=== PATIENT | female | born 1980 | race Caucasian/White ===

== ENCOUNTER → 2016-08-11 | Outpatient (CLI) | payer OTHER | END | disposition home or self-care (01) | LOC: LABWHC1 09:55 | PROVIDERS: ATTEND Family Medicine | DX: R50.9 Fever, unspecified (principal); R52 Pain, unspecified | CPT/HCPCS: 87502 ==

== ENCOUNTER 2016-08-15 15:07 | Emergency (ER) | payer OTHER ==
[2016-08-15 15:26] VITALS: TEMP 98.3
[2016-08-15] MEDS ORDERED: MORPHINE SULFATE 4 MG/ML SYRINGE IV STA (15:30)
[2016-08-15] MEDS ORDERED: SODIUM CHLORIDE 0.9% 1,000 ML IV STA ×2 (15:30)
[2016-08-15] MEDS ORDERED: RX INFO: IV CONTRAST WAS GIVEN 1 EACH MISC MISCELLANE PRN (15:30)
[2016-08-15] MEDS ORDERED: SODIUM CHLORIDE 0.9% 500 ML IV STA (15:30)
--- NOTE | 2016-08-15 15:33 | ED ---
General Adult HPI - General Chief complaint: Abdominal Pain Stated complaint: dr. tenorio- RLQ abd pain Time Seen by Provider: 08/15/16 15:30 Source: patient, RN notes reviewed, old records reviewed Mode of arrival: wheelchair Limitations: no limitations - History of Present Illness Initial comments: This is a 35-year-old female here for evaluation of abdominal pain. Patient has history of chronic pain, occasional bowel pain. No fevers, no nausea no vomiting or diarrhea. Patient has history of asthma high blood pressure cholesterol. States she has no change in diarrhea or bowel movements patient sent in from clinic to rule out appendicitis - Related Data Home Medications Medication Instructions Recorded Confirmed Acetaminophen Tab [Tylenol Tab] 1,000 mg PO Q6HR PRN 08/15/16 08/15/16 Atorvastatin Calcium [Lipitor] 10 mg PO HS 08/15/16 08/15/16 EPINEPHrine (Auto Inject) [Epipen] 0.3 mg IM ONCE PRN 08/15/16 08/15/16 Ergocalciferol [Vitamin D2] 50,000 unit PO WE 08/15/16 08/15/16 Ranitidine HCl [Zantac] 150 mg PO BID 08/15/16 08/15/16 Allergies Allergy/AdvReac Type Severity Reaction Status Date / Time shellfish derived Allergy Severe tongue Verified 08/15/16 15:26 swells and hives azithromycin [From Zithromax] Allergy Rash/Hives Verified 08/15/16 15:26 ceftriaxone sodium Allergy Rash/Hives Verified 08/15/16 15:26 [From Rocephin] ciprofloxacin [From Cipro] Allergy Rash/Hives Verified 08/15/16 15:26 ciprofloxacin HCl Allergy Rash/Hives Verified 08/15/16 15:26 [From Cipro] citalopram hydrobromide Allergy Rash/Hives Verified 08/15/16 15:26 [From Celexa] escitalopram oxalate Allergy Rash/Hives Verified 08/15/16 15:26 [From Lexapro] Fish Containing Products Allergy Rash/Hives, Verified 08/15/16 15:26 [Fish] tongue swells fosphenytoin sodium Allergy TONGUE Verified 08/15/16 15:26 [From Cerebyx] SWELLING hydrocodone bitartrate Allergy Rash/Hives Verified 08/15/16 15:26 [From Lortab] hydromorphone HCl Allergy Rash/Hives Verified 08/15/16 15:26 [From Dilaudid] lamotrigine [From Lamictal] Allergy Rash/Hives Verified 08/15/16 15:26 levetiracetam [From Keppra] Allergy Rash/Hives Verified 08/15/16 15:26 morphine Allergy Rash/Hives,THROAT Verified 08/15/16 15:26 SWELLING sulfamethoxazole Allergy Rash/Hives Verified 08/15/16 15:26 [From Bactrim] trimethobenzamide HCl Allergy Rash/Hives Verified 08/15/16 15:26 [From Tigan] trimethoprim [From Bactrim] Allergy Rash/Hives Verified 08/15/16 15:26 venom-honey bee Allergy Swelling Verified 08/15/16 15:26 [bee venom (honey bee)] OF THROAT Review of Systems ROS Statement: Those systems with pertinent positive or pertinent negative responses have been documented in the HPI. ROS Other: All systems not noted in ROS Statement are negative. Past Medical History Past Medical History: Asthma, CVA/TIA, Fibromyalgia, GERD/Reflux, Hearing Disorder / Deafness, Hyperlipidemia, Myocardial Infarction ([place]), Osteoarthritis (OA), Seizure Disorder Additional Past Medical History / Comment(s): HX SEIZURES, NONE SINCE 2009. Vertigo; MIGRAINES; Peripheral Neuropathy. TACHYCARDIA; TIA X2; MINOR [place] X4. HIATAL HERNIA. Last Myocardial Infarction Date:: 2011 History of Any Multi-Drug Resistant Organisms: None Reported Past Surgical History: Cholecystectomy, Hysterectomy, Tubal Ligation, Uterine Ablation Additional Past Surgical History / Comment(s): EGD, COLONOSCOPY 12/24/14. Past Anesthesia/Blood Transfusion Reactions: Previous Problems w/ Anesthesia, Family History of Problems w/ Anesthesia Additional Past Anesthesia/Blood Transfusion Reaction / Comment(s): Woke Up During ORAL Surgery in 2000; FATHER AND SIBLINGS ALSO WOKE DURING SURG. Past Psychological History: Bipolar, PTSD Smoking Status: Former smoker Past Alcohol Use History: Occasional Additional Past Alcohol Use History / Comment(s): QUIT 2013, SMOKED FOR 10 YRS, 3PPD/DOWN TO 1 PACK PER WEEK Past Drug Use History: None Reported - Past Family History Sister(s) Family Medical History: Cancer Mother Family Medical History: Cancer Mother Sister(s) Family Medical History: Cancer General Exam Limitations: no limitations General appearance: alert, in no apparent distress, obese Head exam: Present: atraumatic, normocephalic, normal inspection Eye exam: Present: normal appearance, PERRL, EOMI. Absent: scleral icterus, conjunctival injection, periorbital swelling ENT exam: Present: normal exam, mucous membranes moist Neck exam: Present: normal inspection. Absent: tenderness, meningismus, lymphadenopathy Respiratory exam: Present: normal lung sounds bilaterally. Absent: respiratory distress, wheezes, rales, rhonchi, stridor Cardiovascular Exam: Present: normal rhythm, tachycardia, normal heart sounds. Absent: systolic murmur, diastolic murmur, rubs, gallop, clicks GI/Abdominal exam: Present: soft, normal bowel sounds. Absent: distended, tenderness, guarding, rebound, rigid Extremities exam: Present: normal inspection, full ROM, normal capillary refill. Absent: tenderness, pedal edema, joint swelling, calf tenderness Back exam: Present: normal inspection Neurological exam: Present: alert, oriented X3, CN II-XII intact Psychiatric exam: Present: normal affect, normal mood Skin exam: Present: warm, dry, intact, normal color. Absent: rash Course Vital Signs 08/15/16 15:24 Temperature 98.3 F Pulse Rate 115 H Respiratory 20 Rate Blood Pressure 130/75 O2 Sat by Pulse 97 Oximetry - Reevaluation(s) Reevaluation #1: 08/15/16 18:56 Patient's pain is controlled EKG Findings - EKG Comments: EKG Findings:: EKG shows normal sinus rhythm rate of 83, MN 132, QRS 84, QTC 441 Medical Decision Making - Medical Decision Making 35 female here for evaluation of nonspecific abdominal pain. CT and lab work is normal. Urine is normal patient will be discharged home - Lab Data Result diagrams: 08/15/16 16:00 08/15/16 16:00 Lab Results 08/15/16 08/15/16 08/15/16 Range/Units 15:55 16:00 16:00 WBC 11.8 H (3.8-10.6) k/uL RBC 5.08 (3.80-5.40) m/uL Hgb 15.0 (11.4-16.0) gm/dL Hct 44.3 (34.0-46.0) % MCV 87.2 (80.0-100.0) fL MCH 29.6 (25.0-35.0) pg MCHC 33.9 (31.0-37.0) g/dL RDW 13.2 (11.5-15.5) % Plt Count 198 (150-450) k/uL Neutrophils % 78 % Lymphocytes % 16 % Monocytes % 4 % Eosinophils % 1 % Basophils % 1 % Neutrophils # 9.2 H (1.3-7.7) k/uL Lymphocytes # 1.9 (1.0-4.8) k/uL Monocytes # 0.5 (0-1.0) k/uL Eosinophils # 0.1 (0-0.7) k/uL Basophils # 0.1 (0-0.2) k/uL Sodium 139 (137-145) mmol/L Potassium 4.3 (3.5-5.1) mmol/L Chloride 104 (98-107) mmol/L Carbon Dioxide 21 L (22-30) mmol/L Anion Gap 14 mmol/L BUN 11 (7-17) mg/dL Creatinine 0.69 (0.52-1.04) mg/dL Est GFR (MDRD) Af Amer >60 (>60 ml/min/1.73 sqM) Est GFR (MDRD) Non-Af >60 (>60 ml/min/1.73 sqM) Glucose 85 (74-99) mg/dL Plasma Lactic Acid Cyril (0.7-2.0) mmol/L Calcium 9.2 (8.4-10.2) mg/dL Total Bilirubin 1.1 (0.2-1.3) mg/dL AST 31 (14-36) U/L ALT 20 (9-52) U/L Alkaline Phosphatase 73 (38-126) U/L Total Protein 7.4 (6.3-8.2) g/dL Albumin 4.3 (3.5-5.0) g/dL Amylase 58 (30-110) U/L Lipase 72 (23-300) U/L Urine Color Yellow Urine Appearance Cloudy H (Clear) Urine pH 5.5 (5.0-8.0) Ur Specific [place] 1.020 (1.001-1.035) Urine Protein Trace H (Negative) Urine Glucose (UA) Negative (Negative) Urine Ketones Trace H (Negative) Urine Blood Negative (Negative) Urine Nitrite Negative (Negative) Urine Bilirubin Negative (Negative) Urine Urobilinogen <2.0 (<2.0) mg/dL Ur Leukocyte Esterase Negative (Negative) Ur Squamous Epith Cells 6 H (0-4) /hpf Urine Mucus Rare H (None) /hpf 08/15/16 Range/Units 16:00 WBC (3.8-10.6) k/uL RBC (3.80-5.40) m/uL Hgb (11.4-16.0) gm/dL Hct (34.0-46.0) % MCV (80.0-100.0) fL MCH (25.0-35.0) pg MCHC (31.0-37.0) g/dL RDW (11.5-15.5) % Plt Count (150-450) k/uL Neutrophils % % Lymphocytes % % Monocytes % % Eosinophils % % Basophils % % Neutrophils # (1.3-7.7) k/uL Lymphocytes # (1.0-4.8) k/uL Monocytes # (0-1.0) k/uL Eosinophils # (0-0.7) k/uL Basophils # (0-0.2) k/uL Sodium (137-145) mmol/L Potassium (3.5-5.1) mmol/L Chloride (98-107) mmol/L Carbon Dioxide (22-30) mmol/L Anion Gap mmol/L BUN (7-17) mg/dL Creatinine (0.52-1.04) mg/dL Est GFR (MDRD) Af Amer (>60 ml/min/1.73 sqM) Est GFR (MDRD) Non-Af (>60 ml/min/1.73 sqM) Glucose (74-99) mg/dL Plasma Lactic Acid Cyril 1.0 (0.7-2.0) mmol/L Calcium (8.4-10.2) mg/dL Total Bilirubin (0.2-1.3) mg/dL AST (14-36) U/L ALT (9-52) U/L Alkaline Phosphatase (38-126) U/L Total Protein (6.3-8.2) g/dL Albumin (3.5-5.0) g/dL Amylase (30-110) U/L Lipase (23-300) U/L Urine Color Urine Appearance (Clear) Urine pH (5.0-8.0) Ur Specific [place] (1.001-1.035) Urine Protein (Negative) Urine Glucose (UA) (Negative) Urine Ketones (Negative) Urine Blood (Negative) Urine Nitrite (Negative) Urine Bilirubin (Negative) Urine Urobilinogen (<2.0) mg/dL Ur Leukocyte Esterase (Negative) Ur Squamous Epith Cells (0-4) /hpf Urine Mucus (None) /hpf - Radiology Data Radiology results: report reviewed (CT abdomen and pelvis is negative for acute disease), image reviewed Disposition Clinical Impression: Abdominal pain Disposition: HOME SELF-CARE Instructions: Abdominal Pain (ED) Referrals: Sayda Prince MD [Primary Care Provider] - 1-2 days
[2016-08-15 16:10] LABS: Appearance,Urine Cloudy (Clear); Bilirubin,Urine Negative (Negative); Glucose,Urine (UA) Negative (Negative); Ketones,Urine Trace (Negative); Leukocyte Esterase,Urine Negative (Negative); Mucus,Urine Rare /hpf; Nitrite,Urine Negative (Negative); PH, Urine 5.5 (5.0-8.0); Particle Count 6566; Protein,Urine Trace (Negative); Squamous Epithelial Cell,Urine 6 /hpf (0-4); UA Billing (MACRO vs. MICRO) MICRO; Urobilinogen,Urine <2.0 mg/dL (<2.0)
[2016-08-15 16:33] LABS: Basophils # (A) 0.1 k/uL (0-0.2); Basophils % (A) 1 %; CHCM 34.5; Eosinophils # (A) 0.1 k/uL (0-0.7); Eosinophils % (A) 1 %; HCT 44.3 % (34.0-46.0); HDW 2.47; Luc # (Auto) 0.12; Luc % (Auto) 1; Lymphocytes # (A) 1.9 k/uL (1.0-4.8); Lymphocytes % (A) 16 %; MCH 29.6 pg (25.0-35.0); MCHC 33.9 g/dL (31.0-37.0); MCV 87.2 fL (80.0-100.0); Mean Platelet Volume 8.9; Monocytes # (A) 0.5 k/uL (0-1.0); Monocytes % (A) 4 %; Neutrophils # (A) 9.2 k/uL (1.3-7.7); Neutrophils % (A) 78 %; RBC 5.08 m/uL (3.80-5.40); RDW 13.2 % (11.5-15.5); WBC 11.8 k/uL (3.8-10.6); WBC (Perox) 11.83
[2016-08-15 16:46] LABS: ALT 20 U/L (9-52); AST 31 U/L (14-36); Alkaline Phosphatase 73 U/L (38-126); Amylase 58 U/L (30-110); Anion Gap 14 mmol/L; Blood Urea Nitrogen 11 mg/dL (7-17); Calcium 9.2 mg/dL (8.4-10.2); Carbon Dioxide 21 mmol/L (22-30); Chloride 104 mmol/L (98-107); Glucose 85 mg/dL (74-99); Non-African American GFR(MDRD) >60 (>60 ml/min/1.73 sqM); Potassium 4.3 mmol/L (3.5-5.1); Sodium 139 mmol/L (137-145); Total Bilirubin 1.1 mg/dL (0.2-1.3); Total Protein 7.4 g/dL (6.3-8.2)
--- NOTE | 2016-08-15 18:18 | CT ---
EXAMINATION TYPE: CT abdomen pelvis w con DATE OF EXAM: 08/15/2016 5:58 PM COMPARISON: 03/30/2016 HISTORY: Lower abdominal pain. CT DLP: 1578.10 mGycm Automated exposure control for dose reduction was used. TECHNIQUE: Helical acquisition of images was performed from the lung bases through the pelvis. CONTRAST: Performed without Oral Contrast and with IV Contrast, patient injected with 100 mL of Omnipaque 300. FINDINGS: There is minimal subsegmental atelectasis at the posterior lung bases. There is no pleural effusion. There are surgical clips at the gastroesophageal junction. Liver spleen pancreas appear normal. There are clips from cholecystectomy. There is no adrenal mass. There is normal contrast opacification of the kidneys. There is no hydronephrosis. There is no retroperitoneal adenopathy. There is no ascites. The appendix appears normal. I see no intestinal wall thickening. There are no dilated loops. Bladde r distends smoothly. There is no sign of a pelvic mass. I see no bony destructive process. Hysterecto my is noted. There is no pelvic mass. IMPRESSION: THERE IS MINIMAL SUBSEGMENTAL ATELECTASIS AT THE LUNG BASES THAT IS NEW COMPARED TO LAST EXAM. OTHERW ISE NEGATIVE EXAM.
[2016-08-15 19:23] VITALS: BP 121/80; PULSE 72; RESP 16
== END 2016-08-15 19:21 | disposition home or self-care (01) ==
LOC: EC 15:07
DX: R10.31 Right lower quadrant pain (principal); E78.5 Hyperlipidemia, unspecified; K21.9 Gastro-esophageal reflux disease without esophagitis; H91.90 Unspecified hearing loss, unspecified ear; Z87.891 Personal history of nicotine dependence; Z88.8 Allergy status to other drugs, medicaments and biological substances; Z88.1 Allergy status to other antibiotic agents; Z91.013 Allergy to seafood; Z88.5 Allergy status to narcotic agent; Z88.6 Allergy status to analgesic agent; Z88.2 Allergy status to sulfonamides; Z91.030 Bee allergy status
CPT/HCPCS: 99285; 96360; 96361 ×2; 36415; 93005; 80053; 82150; 83605; 83690; 85025; 81001; 81025; 87086; 74177; Q9967

== ENCOUNTER → 2016-08-22 | Outpatient (CLI) | payer OTHER ==
--- NOTE | 2016-08-22 16:29 | US ---
EXAMINATION TYPE: US transvaginal DATE OF EXAM: 08/22/2016 1:18 PM COMPARISON: 03/2016 CLINICAL HISTORY: 35-year-old female R10.2 ACUTE PAIN IN PELVIS. Hysterectomy 2011, endometriosis, in termittent pelvic pain for years, history of ovarian cysts Date of LMP: 2011 TECHNIQUE: Multiple transvaginal sonographic images of the pelvis were obtained. Findings: The uterus is surgically absent. Vaginal cuff appears grossly unremarkable. Right Ovary: 4.0 x 3.0 x 2.8 cm with a 2.8 cm dominant follicle or functional cyst. Left Ovary: 2.2 x 1.7 x 1.5 cm No evident adnexal abnormality or cul-de-sac free fluid. IMPRESSION: 1. Status post hysterectomy. 2. A 2.8 cm dominant follicle or functional cyst in the right ovary. 3. No pelvic free fluid.
== END | disposition home or self-care (01) ==
LOC: RADUSWWP 12:54
PROVIDERS: ATTEND Obstetrics & Gynecology
DX: N83.201 Unspecified ovarian cyst, right side (principal); Z90.710 Acquired absence of both cervix and uterus
CPT/HCPCS: 76830

== ENCOUNTER 2016-09-08 16:42 | Emergency (ER) | payer OTHER ==
[2016-09-08 16:50] VITALS: RESP 18
--- NOTE | 2016-09-08 16:52 | ED ---
Seizure HPI - General Chief Complaint: Seizure Stated Complaint: poss seizure Time Seen by Provider: 09/08/16 16:46 Source: patient, EMS, RN notes reviewed Mode of arrival: EMS Limitations: no limitations - History of Present Illness Initial Comments: 35-year-old female presents emergency Department from primary care physician's office for possible seizure. Patient was standing and primary care physician's office for back towards the wall and seemed to be responsive for a few seconds but was responsive shortly after. She states that she does remember going into the wall and then people trying to help her lay flat. Patient states she has no complaints at this time denies any headache, dizziness, blurred vision, nausea vomiting diarrhea constipation. She states she has had seizures in the past in which she stick medication for. Patient states she is currently taking Lipitor. Patient has not take anything for seizures. Patient offers no other complaints. - Related Data Home Medications Medication Instructions Recorded Confirmed Acetaminophen Tab [Tylenol Tab] 1,000 mg PO Q6HR PRN 08/15/16 09/08/16 Atorvastatin Calcium [Lipitor] 10 mg PO HS 08/15/16 09/08/16 EPINEPHrine (Auto Inject) [Epipen] 0.3 mg IM ONCE PRN 08/15/16 09/08/16 Ergocalciferol [Vitamin D2] 50,000 unit PO WE 08/15/16 09/08/16 Ranitidine HCl [Zantac] 150 mg PO BID PRN 08/15/16 09/08/16 D-Methorphan/Acetamin/Doxylamn 1 cap PO HS PRN 09/08/16 09/08/16 [Vicks Nyquil Liquicaps] D-Methorphan/PE/Acetaminophen 1 cap PO QAM PRN 09/08/16 09/08/16 [Vicks Dayquil Liquicaps] Allergies Allergy/AdvReac Type Severity Reaction Status Date / Time shellfish derived Allergy Severe tongue Verified 09/08/16 17:03 swells and hives azithromycin [From Zithromax] Allergy Rash/Hives Verified 09/08/16 17:03 ceftriaxone sodium Allergy Rash/Hives Verified 09/08/16 17:03 [From Rocephin] ciprofloxacin [From Cipro] Allergy Rash/Hives Verified 09/08/16 17:03 ciprofloxacin HCl Allergy Rash/Hives Verified 09/08/16 17:03 [From Cipro] citalopram hydrobromide Allergy Rash/Hives Verified 09/08/16 17:03 [From Celexa] escitalopram oxalate Allergy Rash/Hives Verified 09/08/16 17:03 [From Lexapro] Fish Containing Products Allergy Rash/Hives, Verified 09/08/16 17:03 [Fish] tongue swells fosphenytoin sodium Allergy TONGUE Verified 09/08/16 17:03 [From Cerebyx] SWELLING hydrocodone bitartrate Allergy Rash/Hives Verified 09/08/16 17:03 [From Lortab] hydromorphone HCl Allergy Rash/Hives Verified 09/08/16 17:03 [From Dilaudid] lamotrigine [From Lamictal] Allergy Rash/Hives Verified 09/08/16 17:03 levetiracetam [From Keppra] Allergy Rash/Hives Verified 09/08/16 17:03 morphine Allergy Anaphylaxis Verified 09/08/16 17:28 sulfamethoxazole Allergy Rash/Hives Verified 09/08/16 17:03 [From Bactrim] trimethobenzamide HCl Allergy Rash/Hives Verified 09/08/16 17:03 [From Tigan] trimethoprim [From Bactrim] Allergy Rash/Hives Verified 09/08/16 17:03 venom-honey bee Allergy Anaphylaxis Verified 09/08/16 17:28 [bee venom (honey bee)] Review of Systems ROS Statement: Those systems with pertinent positive or pertinent negative responses have been documented in the HPI. ROS Other: All systems not noted in ROS Statement are negative. Past Medical History Past Medical History: Asthma, CVA/TIA, Fibromyalgia, GERD/Reflux, Hearing Disorder / Deafness, Hyperlipidemia, Myocardial Infarction ([place]), Osteoarthritis (OA), Seizure Disorder Additional Past Medical History / Comment(s): HX SEIZURES, NONE SINCE 2009. Vertigo; MIGRAINES; Peripheral Neuropathy. TACHYCARDIA; TIA X2; MINOR [place] X4. HIATAL HERNIA. Last Myocardial Infarction Date:: 2011 History of Any Multi-Drug Resistant Organisms: None Reported Past Surgical History: Cholecystectomy, Hysterectomy, Tubal Ligation, Uterine Ablation Additional Past Surgical History / Comment(s): EGD, COLONOSCOPY 12/24/14. Past Anesthesia/Blood Transfusion Reactions: Previous Problems w/ Anesthesia, Family History of Problems w/ Anesthesia Additional Past Anesthesia/Blood Transfusion Reaction / Comment(s): Woke Up During ORAL Surgery in 2000; FATHER AND SIBLINGS ALSO WOKE DURING SURG. Past Psychological History: Bipolar, PTSD Smoking Status: Former smoker Past Alcohol Use History: Occasional Additional Past Alcohol Use History / Comment(s): QUIT 2013, SMOKED FOR 10 YRS, 3PPD/DOWN TO 1 PACK PER WEEK Past Drug Use History: None Reported - Past Family History Sister(s) Family Medical History: Cancer Mother Family Medical History: Cancer Mother Sister(s) Family Medical History: Cancer General Exam General appearance: alert, in no apparent distress Head exam: Present: atraumatic, normocephalic, normal inspection ENT exam: Present: normal exam, normal oropharynx, mucous membranes moist Neck exam: Present: normal inspection. Absent: tenderness, meningismus, lymphadenopathy Respiratory exam: Present: normal lung sounds bilaterally. Absent: respiratory distress, wheezes, rales, rhonchi, stridor Cardiovascular Exam: Present: regular rate, normal rhythm, normal heart sounds. Absent: systolic murmur, diastolic murmur, rubs, gallop, clicks Back exam: Present: full ROM. Absent: tenderness Neurological exam: Present: alert, oriented X3, CN II-XII intact, reflexes normal. Absent: motor sensory deficit Skin exam: Present: warm, dry, intact, normal color. Absent: rash Course Vital Signs 09/08/16 16:45 Temperature 99.4 F Pulse Rate 63 Respiratory 18 Rate Blood Pressure 145/78 O2 Sat by Pulse 95 Oximetry Medical Decision Making - Medical Decision Making 35-year-old female presented for possible seizure-like activity. Patient's lab work within normal limits. This most likely was a near syncopal episode. Patient does remember most of the event. Patient does have a history of seizures. She'll be discharged at this time return parameters were discussed. - Lab Data Result diagrams: 09/08/16 17:49 09/08/16 17:49 Lab Results 09/08/16 09/08/16 Range/Units 17:49 17:49 WBC 9.0 (3.8-10.6) k/uL RBC 5.14 (3.80-5.40) m/uL Hgb 15.0 (11.4-16.0) gm/dL Hct 45.6 (34.0-46.0) % MCV 88.8 (80.0-100.0) fL MCH 29.2 (25.0-35.0) pg MCHC 32.9 (31.0-37.0) g/dL RDW 13.1 (11.5-15.5) % Plt Count 205 (150-450) k/uL Neutrophils % 74 % Lymphocytes % 18 % Monocytes % 4 % Eosinophils % 1 % Basophils % 1 % Neutrophils # 6.7 (1.3-7.7) k/uL Lymphocytes # 1.6 (1.0-4.8) k/uL Monocytes # 0.4 (0-1.0) k/uL Eosinophils # 0.1 (0-0.7) k/uL Basophils # 0.1 (0-0.2) k/uL Sodium 142 (137-145) mmol/L Potassium 4.5 (3.5-5.1) mmol/L Chloride 107 (98-107) mmol/L Carbon Dioxide 25 (22-30) mmol/L Anion Gap 10 mmol/L BUN 8 (7-17) mg/dL Creatinine 0.70 (0.52-1.04) mg/dL Est GFR (MDRD) Af Amer >60 (>60 ml/min/1.73 sqM) Est GFR (MDRD) Non-Af >60 (>60 ml/min/1.73 sqM) Glucose 89 (74-99) mg/dL Calcium 9.1 (8.4-10.2) mg/dL Total Bilirubin 0.4 (0.2-1.3) mg/dL AST 19 (14-36) U/L ALT 26 (9-52) U/L Alkaline Phosphatase 69 (38-126) U/L Total Protein 7.1 (6.3-8.2) g/dL Albumin 4.0 (3.5-5.0) g/dL 09/08/16 17:20 EKG performed at 17:10 normal sinus rhythm with a rate of 61, SD 120, QRS duration 84, QT/QTC 404/406 Disposition Clinical Impression: Near syncope, Seizure-like activity Disposition: HOME SELF-CARE Condition: Stable Instructions: Recurrent Seizures in Adults (ED) Additional Instructions: Please return to the Emergency Department if symptoms worsen or any other concerns. Time of Disposition: 18:18
[2016-09-08 18:03] LABS: Basophils # (A) 0.1 k/uL (0-0.2); Basophils % (A) 1 %; CH 29.8; CHCM 33.7; Eosinophils # (A) 0.1 k/uL (0-0.7); Eosinophils % (A) 1 %; HCT 45.6 % (34.0-46.0); HDW 2.52; Luc # (Auto) 0.16; Luc % (Auto) 2; Lymphocytes # (A) 1.6 k/uL (1.0-4.8); Lymphocytes % (A) 18 %; MCH 29.2 pg (25.0-35.0); MCHC 32.9 g/dL (31.0-37.0); MCV 88.8 fL (80.0-100.0); Mean Platelet Volume 8.6; Monocytes # (A) 0.4 k/uL (0-1.0); Monocytes % (A) 4 %; Neutrophils # (A) 6.7 k/uL (1.3-7.7); Neutrophils % (A) 74 %; RBC 5.14 m/uL (3.80-5.40); RDW 13.1 % (11.5-15.5); WBC (Perox) 8.58
[2016-09-08 18:09] LABS: ALT 26 U/L (9-52); AST 19 U/L (14-36); Alkaline Phosphatase 69 U/L (38-126); Anion Gap 10 mmol/L; Blood Urea Nitrogen 8 mg/dL (7-17); Calcium 9.1 mg/dL (8.4-10.2); Carbon Dioxide 25 mmol/L (22-30); Chloride 107 mmol/L (98-107); Glucose 89 mg/dL (74-99); Non-African American GFR(MDRD) >60 (>60 ml/min/1.73 sqM); Potassium 4.5 mmol/L (3.5-5.1); Sodium 142 mmol/L (137-145); Total Bilirubin 0.4 mg/dL (0.2-1.3); Total Protein 7.1 g/dL (6.3-8.2)
[2016-09-08 18:32] VITALS: BP 124/73; PULSE 69; TEMP 99
== END 2016-09-08 18:32 | disposition home or self-care (01) ==
LOC: EC 16:42
DX: R55 Syncope and collapse (principal); G40.909 Epilepsy, unspecified, not intractable, without status epilepticus; I25.2 Old myocardial infarction; Z87.891 Personal history of nicotine dependence; Z79.899 Other long term (current) drug therapy; Z91.013 Allergy to seafood; Z88.1 Allergy status to other antibiotic agents; Z88.5 Allergy status to narcotic agent; Z88.8 Allergy status to other drugs, medicaments and biological substances; Z88.2 Allergy status to sulfonamides; Z91.030 Bee allergy status
CPT/HCPCS: 36415; 80053; 85025; 93005; 99284

== ENCOUNTER → 2016-09-17 | Outpatient (CLI) | payer OTHER ==
--- NOTE | 2016-09-17 11:25 | CT ---
EXAMINATION TYPE: CT chest wo con DATE OF EXAM: 09/17/2016 10:22 AM COMPARISON: NONE HISTORY: Exertional dyspnea CT DLP: 619.20 mGycm Automated exposure control for dose reduction was used. FINDINGS: There is no endobronchial lesion, pleural or pericardial effusion. There is no evident lung mass, pne umothorax, or pleural effusion. There is no pericardial effusion. Some minimal subpleural densities a t the posterior lung bases likely reflect atelectasis or minimal postinflammatory change. There is no mediastinal, axillary, or hilar adenopathy. Aorta shows normal caliber. Postop changes are noted at the gastroesophageal junction. Patient is post cholecystectomy. Lack of contrast could compromise sen sitivity. IMPRESSION: NO ABNORMALITY EVIDENT TO ACCOUNT FOR PATIENT'S SYMPTOMS.
== END | disposition home or self-care (01) ==
LOC: RADCTMAIN 09:44
PROVIDERS: ATTEND Family Medicine
DX: R06.09 Other forms of dyspnea (principal)
CPT/HCPCS: 71250

== ENCOUNTER 2016-09-26 11:45 | Day surgery (SDC) | payer OTHER ==
[~2016-09-26 11:45] MED LIST: SODIUM CHLORIDE 0.9% 1,000 ML IV SCH
[2016-09-26 12:16] VITALS: BP 125/71; PULSE 75; RESP 16; TEMP 98.3
--- NOTE | 2016-09-26 19:32 | CE ---
DATE OF SERVICE: 35-year-old who was referred by Dr. Posada for a tilt table test. Baseline blood pressure 125/79 mmHg. Baseline heart rate 68 beats a minute. She was tilted up at an angle of 70 degrees per protocol. There was no change in her heart rate or blood pressure. There was no evidence of neurocardiogenic syncope. 12 lead ECG prior to tilt table testing showed sinus mechanism, normal ID, narrow QRS, normal QT interval. No epsilon waves, normal ST segments. No delta waves.
== END 2016-09-26 14:30 | disposition home or self-care (01) ==
LOC: CATHEP 11:45
PROVIDERS: ATTEND Internal Medicine Clinical Cardiac Electrophysiology
DX: R55 Syncope and collapse (principal); R94.31 Abnormal electrocardiogram [ECG] [EKG]; E78.2 Mixed hyperlipidemia; R00.2 Palpitations; G40.909 Epilepsy, unspecified, not intractable, without status epilepticus; Z86.73 Personal history of transient ischemic attack (TIA), and cerebral infarction without residual deficits; Z79.899 Other long term (current) drug therapy; Z88.2 Allergy status to sulfonamides; Z88.8 Allergy status to other drugs, medicaments and biological substances; Z88.6 Allergy status to analgesic agent; Z88.1 Allergy status to other antibiotic agents; Z91.030 Bee allergy status; Z88.5 Allergy status to narcotic agent; Z91.013 Allergy to seafood; Z87.891 Personal history of nicotine dependence
CPT/HCPCS: 93005; 93660

== ENCOUNTER → 2016-09-29 | Outpatient (CLI) | payer OTHER ==
[2016-09-29 13:56] LABS: ALT 27 U/L (9-52); AST 16 U/L (14-36); Alkaline Phosphatase 59 U/L (38-126); Anion Gap 10 mmol/L; Blood Urea Nitrogen 10 mg/dL (7-17); Calcium 9.1 mg/dL (8.4-10.2); Carbon Dioxide 25 mmol/L (22-30); Chloride 107 mmol/L (98-107); Glucose 81 mg/dL (74-99); Non-African American GFR(MDRD) >60 (>60 ml/min/1.73 sqM); Potassium 4.2 mmol/L (3.5-5.1); Sodium 142 mmol/L (137-145); Total Bilirubin 0.5 mg/dL (0.2-1.3); Total Protein 7.8 g/dL (6.3-8.2)
[2016-09-30 06:28] LABS: Cardiolipin Ab IgG <9.0 GPL (<15); Cardiolipin Ab IgM 9.9 MPL (<12.5)
[2016-09-30 09:02] LABS: Protein C Antigen 133 % (72-160)
[2016-09-30 11:40] LABS: Protein C (Activity) 166 % (70 - 130); Protein S (Activity) 100 % (65 - 140)
[2016-09-30 11:41] LABS: Protein S Antigen 107 % (50 - 140)
[2016-10-03 15:19] LABS: Mis test requested (Blood) THROMBIN TIME
== END | disposition home or self-care (01) ==
LOC: LABWHC1 13:15
PROVIDERS: ATTEND Psychiatry & Neurology Neurology
DX: G40.909 Epilepsy, unspecified, not intractable, without status epilepticus (principal); Z86.69 Personal history of other diseases of the nervous system and sense organs; Z87.39 Personal history of other diseases of the musculoskeletal system and connective tissue
CPT/HCPCS: 36415; 80053; 81240; 81291; 83090; 85300; 85301; 85302; 85303; 85305; 85306; 85379; 85384; 85613; 85670; 85730; 86147

== ENCOUNTER → 2016-10-15 | Outpatient (CLI) | payer OTHER ==
--- NOTE | 2016-10-15 12:43 | MR ---
EXAMINATION TYPE: MR brain wo con DATE OF EXAM: 10/15/2016 12:35 PM COMPARISON: NONE HISTORY: richardson, light headed Multiplanar and multispin-echo imaging of the brain was performed . The ventricles, basal cisterns and sulci overlying the cerebral convexities are within normal limits. There is no evidence for midline shift or mass effect. Acute intracranial hemorrhage or extra-axial collection is not evident. Small solitary punctate T2 lesion left temporal lobe measuring 2 mm is nonspecific. No acute edema is identified. The paranasal sinuses and mastoid air cells are well-aerated. IMPRESSION: Small solitary punctate T2 lesion left temporal lobe measuring 2 mm is nonspecific.
--- NOTE | 2016-10-15 12:44 | MR ---
EXAMINATION TYPE: MR lumbar spine wo con DATE OF EXAM: 10/15/2016 12:35 PM COMPARISON: NONE HISTORY: lumbago, back pain goes down legs Multiplanar, MultiSpin echo imaging of the lumbar spine was performed. L1-L2: Normal disc appearance without desiccation. No herniation, protrusion or disc bulging. No ca nal stenosis is present. Foramina are patent bilaterally. L2-L3: Normal disc appearance without desiccation. No herniation, protrusion or disc bulging. No ca nal stenosis is present. Foramina are patent bilaterally. L3-L4: Normal disc appearance without desiccation. No herniation, protrusion or disc bulging. No ca nal stenosis is present. Foramina are patent bilaterally. L4-L5: Normal disc appearance without desiccation. No herniation, protrusion or disc bulging. No ca nal stenosis is present. Foramina are patent bilaterally. L5-S1: Normal disc appearance without desiccation. No herniation, protrusion or disc bulging. No ca nal stenosis is present. Foramina are patent bilaterally. Lumbar segments are intact. No paraspinal masses are identified. Conus medullaris has a normal appe arance. IMPRESSION: 1. No significant abnormality appreciated.
== END | disposition home or self-care (01) ==
LOC: RADMRIMAIN 11:29
PROVIDERS: ATTEND Psychiatry & Neurology Pain Medicine
DX: G93.89 Other specified disorders of brain (principal); M54.5 Low back pain; Z88.1 Allergy status to other antibiotic agents; Z88.2 Allergy status to sulfonamides; Z88.5 Allergy status to narcotic agent; Z88.6 Allergy status to analgesic agent; Z88.8 Allergy status to other drugs, medicaments and biological substances
CPT/HCPCS: 70551; 72148

== ENCOUNTER → 2016-11-21 | Outpatient (CLI) | payer OTHER ==
--- NOTE | 2016-11-21 12:08 | US ---
EXAMINATION TYPE: US transvaginal DATE OF EXAM: 11/21/2016 COMPARISON: 08/22/2016 NONE CLINICAL HISTORY: 36-year-old female with R10.2 PELVIC PAIN. Follow up to right ovarian cyst, h/o end ometriosis and hysterectomy Date of LMP: hysterectomy TECHNIQUE: Multiple transvaginal sonographic images of the pelvis are obtained. FINDINGS: Uterus surgically absent. Right Ovary: 3.1 x 2.2 x 2.3 cm for volume of 8.1 mL. There is a tiny 8 mm crenulated appearing cyst within the right ovary. (SCR[employer] B[employer]CH [employer]ER NOTES: patient states she felt cyst rupture 2 weeks ago) Left Ovary: 3.7 x 1.8 x 1.9 cm for a volume of 6.9 mL. No evident adnexal abnormality or cul-de-sac free fluid. IMPRESSION: 1. Status post hysterectomy. 2. In the right ovary, an 8 mm follicle or collapsed cyst remains.
== END | disposition home or self-care (01) ==
LOC: RADUSWWP 09:32
PROVIDERS: ATTEND Obstetrics & Gynecology
DX: R10.2 Pelvic and perineal pain (principal); Z90.710 Acquired absence of both cervix and uterus
CPT/HCPCS: 76830

== ENCOUNTER 2017-01-10 14:03 | Observation (INO) | payer OTHER ==
--- NOTE | 2017-01-10 15:08 | ED ---
General Adult HPI - General Chief complaint: Altered Mental Status Stated complaint: Altered Mental Status Time Seen by Provider: 01/10/17 14:25 Source: EMS, RN notes reviewed Mode of arrival: EMS Limitations: altered mental status - History of Present Illness Initial comments: This is a 36-year-old female who is transferred to us from another hospital because of her amnestic episodes since yesterday. Patient is alert and oriented 3 when you arouse her but when you go back in the room she states that she does not remember seeing her in the past. There is no headache there is no numbness or weakness. Patient is very sleepy according to her fianc. Patient's neurologist is Dr. Hidalgo. The CAT scan all lab work from the other facility have been reviewed and were normal. - Related Data Home Medications Medication Instructions Recorded Confirmed Acetaminophen Tab [Tylenol Tab] 1,000 mg PO Q6HR PRN 08/15/16 09/26/16 Atorvastatin Calcium [Lipitor] 10 mg PO HS 08/15/16 09/26/16 EPINEPHrine (Auto Inject) [Epipen] 0.3 mg IM ONCE PRN 08/15/16 09/26/16 Ergocalciferol [Vitamin D2] 50,000 unit PO WE 08/15/16 09/26/16 Ranitidine HCl [Zantac] 150 mg PO BID PRN 08/15/16 09/26/16 D-Methorphan/PE/Acetaminophen 1 cap PO QAM PRN 09/08/16 09/26/16 [Vicks Dayquil Liquicaps] Dm/Acetaminophen/Doxylamine [Vicks 1 cap PO HS PRN 09/08/16 09/26/16 Nyquil Liquicaps] SUMAtriptan SUCCINATE [Imitrex] 50 mg PO ONCE PRN MDD 150 09/26/16 09/26/16 Allergies Allergy/AdvReac Type Severity Reaction Status Date / Time shellfish derived Allergy Severe tongue Verified 01/10/17 14:26 swells and hives azithromycin [From Zithromax] Allergy Rash/Hives Verified 01/10/17 14:26 ceftriaxone sodium Allergy Rash/Hives Verified 01/10/17 14:26 [From Rocephin] ciprofloxacin [From Cipro] Allergy Rash/Hives Verified 01/10/17 14:26 ciprofloxacin HCl Allergy Rash/Hives Verified 01/10/17 14:26 [From Cipro] citalopram hydrobromide Allergy Rash/Hives Verified 01/10/17 14:26 [From Celexa] escitalopram oxalate Allergy Rash/Hives Verified 01/10/17 14:26 [From Lexapro] Fish Containing Products Allergy Rash/Hives, Verified 01/10/17 14:26 [Fish] tongue swells fosphenytoin sodium Allergy TONGUE Verified 01/10/17 14:26 [From Cerebyx] SWELLING hydrocodone bitartrate Allergy Rash/Hives Verified 01/10/17 14:26 [From Lortab] hydromorphone HCl Allergy Rash/Hives Verified 01/10/17 14:26 [From Dilaudid] lamotrigine [From Lamictal] Allergy Rash/Hives Verified 01/10/17 14:26 levetiracetam [From Keppra] Allergy Rash/Hives Verified 01/10/17 14:26 morphine Allergy Anaphylaxis Verified 01/10/17 14:26 sulfamethoxazole Allergy Rash/Hives Verified 01/10/17 14:26 [From Bactrim] trimethobenzamide HCl Allergy Rash/Hives Verified 01/10/17 14:26 [From Tigan] trimethoprim [From Bactrim] Allergy Rash/Hives Verified 01/10/17 14:26 venom-honey bee Allergy Anaphylaxis Verified 01/10/17 14:26 [bee venom (honey bee)] Review of Systems ROS Statement: Those systems with pertinent positive or pertinent negative responses have been documented in the HPI. ROS Other: All systems not noted in ROS Statement are negative. Past Medical History Past Medical History: Asthma, CVA/TIA, Fibromyalgia, GERD/Reflux, Hearing Disorder / Deafness, Hyperlipidemia, Myocardial Infarction ([place]), Osteoarthritis (OA), Seizure Disorder Additional Past Medical History / Comment(s): HX SEIZURES, NONE SINCE 2009. Vertigo; MIGRAINES; Peripheral Neuropathy. TACHYCARDIA; TIA X2; MINOR [place] X4. HIATAL HERNIA. Last Myocardial Infarction Date:: 2011 History of Any Multi-Drug Resistant Organisms: None Reported Past Surgical History: Cholecystectomy, Hysterectomy, Tubal Ligation, Uterine Ablation Additional Past Surgical History / Comment(s): EGD, COLONOSCOPY 12/24/14. Past Anesthesia/Blood Transfusion Reactions: Previous Problems w/ Anesthesia, Family History of Problems w/ Anesthesia Additional Past Anesthesia/Blood Transfusion Reaction / Comment(s): Woke Up During ORAL Surgery in 2000; FATHER AND SIBLINGS ALSO WOKE DURING SURG. Past Psychological History: Bipolar, PTSD Smoking Status: Former smoker Past Alcohol Use History: Occasional Past Drug Use History: None Reported - Past Family History Sister(s) Family Medical History: Cancer Mother Family Medical History: Cancer Mother Sister(s) Family Medical History: Cancer General Exam - General Exam Comments Initial Comments: GENERAL: Patient is well-developed and well-nourished. Patient is nontoxic and well- hydrated and is in mild distress. ENT: Neck is soft and supple. No significant lymphadenopathy is noted. Oropharynx is clear. Moist mucous membranes. Neck has full range of motion without eliciting any pain. EYES: The sclera were anicteric and conjunctiva were pink and moist. Extraocular movements were intact and pupils were equal round and reactive to light. Eyelids were unremarkable. PULMONARY: Unlabored respirations. Good breath sounds bilaterally. No audible rales rhonchi or wheezing was noted. CARDIOVASCULAR: There is a regular rate and rhythm without any murmurs gallops or rubs. ABDOMEN: Soft and nontender with normal bowel sounds. No palpable organomegaly was noted. There is no palpable pulsatile mass. SKIN: Skin is clear with no lesions or rashes and otherwise unremarkable. NEUROLOGIC: Patient is alert and oriented x3. Cranial nerves II through XII are grossly intact. Motor and sensory are also intact. Normal speech, volume and content. Symmetrical smile. Patient is very slow to respond they believe that is intentional. MUSCULOSKELETAL: Normal extremities with adequate strength and full range of motion. LYMPHATICS: No significant lymphadenopathy is noted Limitations: altered mental status Course Vital Signs 01/10/17 14:23 Temperature 98.3 F Pulse Rate 82 Respiratory 18 Rate Blood Pressure 126/57 O2 Sat by Pulse 96 Oximetry Disposition Clinical Impression: Amnesia Disposition: HOME SELF-CARE Referrals: None,Stated [Primary Care Provider] - 1-2 days Time of Disposition: 15:10
[2017-01-10] MEDS ORDERED: ACETAMINOPHEN TAB 500 MG TAB PO STA (16:15)
--- NOTE | 2017-01-10 16:38 | US ---
EXAMINATION TYPE: US carotid duplex BILAT DATE OF EXAM: 01/10/2017 COMPARISON: NONE CLINICAL HISTORY: Stenosis. EXAM MEASUREMENTS: RIGHT: Peak Systolic Velocity (PSV) cm/sec ----- Right CCA: 95.8 ----- Right ICA: 71.4 ----- Right ECA: 77.0 ICA/CCA ratio: 0.7 RIGHT: End Diastole cm/sec ----- Right CCA: 23.1 ----- Right ICA: 29.6 ----- Right ECA: 15.3 LEFT: Peak Systolic Velocity (PSV) cm/sec ----- Left CCA: 77.1 ----- Left ICA: 67.0 ----- Left ECA: 82.1 ICA/CCA ratio: 0.9 LEFT: End Diastole cm/sec ----- Left CCA: 24.1 ----- Left ICA: 27.8 ----- Left ECA: 20.7 VERTEBRALS (direction of flow): Right Vertebral: Antegrade Left Vertebral: Antegrade 32 year old patient has large thick neck, technically difficult, no evident plaque, no significant st enosis seen. IMPRESSION: No evidence of hemodynamically significant stenosis within either carotid system.
[2017-01-11 06:22] LABS: CH 29.5; CHCM 33.3; HGB 13.2 gm/dL (11.4-16.0); MCH 28.7 pg (25.0-35.0); MCHC 32.2 g/dL (31.0-37.0); MCV 89.2 fL (80.0-100.0); Mean Platelet Volume 9.5; RDW 14.3 % (11.5-15.5); WBC 9.4 k/uL (3.8-10.6)
[2017-01-11 06:27] LABS: ALT 27 U/L (9-52); AST 13 U/L (14-36); Alkaline Phosphatase 54 U/L (38-126); Anion Gap 8 mmol/L; Blood Urea Nitrogen 6 mg/dL (7-17); Calcium 8.7 mg/dL (8.4-10.2); Carbon Dioxide 27 mmol/L (22-30); Chloride 105 mmol/L (98-107); Cholesterol 232 mg/dL (<200); Glucose 81 mg/dL (74-99); HDL Cholesterol 36 mg/dL (40-60); Non-African American GFR(MDRD) >60 (>60 ml/min/1.73 sqM); Potassium 4.2 mmol/L (3.5-5.1); Sodium 140 mmol/L (137-145); Total Bilirubin 0.5 mg/dL (0.2-1.3); Total Protein 6.4 g/dL (6.3-8.2)
--- NOTE | 2017-01-11 14:48 | P.DS ---
Providers Date of admission: 01/10/17 15:13 Attending physician: Drea Wylie Consults: 01/10/17 15:14 Consult Physician Routine Consulting Provider: Adalgisa Hidalgo Reason/Comments: Amnesia Do you want consulting provider notified?: Yes 01/11/17 12:21 Consult Physician Routine Consulting Provider: Louis Espinoza Consult Reason/Comments: Inconsistancy of information, history of bipolar Do you want consulting provider notified?: Yes Primary care physician: Stated None Hospital Course: Please refer to HPI Plan - Discharge Summary New Discharge Prescriptions: New Aspirin 81 mg PO DAILY #30 chewable Atorvastatin [Lipitor] 40 mg PO HS #30 tablet Continue SUMAtriptan SUCCINATE [Imitrex] 50 mg PO DAILY PRN PRN Reason: Headache Ibuprofen [Motrin] 600 mg PO Q6HR PRN PRN Reason: Pain Acetaminophen-Codeine 300-30mg [Tylenol w/codeine #3] 1 tab PO Q4H PRN PRN Reason: Pain Docusate [Colace] 100 mg PO DAILY Discontinued Atorvastatin Calcium [Lipitor] 10 mg PO HS Discharge Medication List SUMAtriptan SUCCINATE [Imitrex] 50 mg PO DAILY PRN 09/26/16 [History] Acetaminophen-Codeine 300-30mg [Tylenol w/codeine #3] 1 tab PO Q4H PRN 01/10/17 [History] Docusate [Colace] 100 mg PO DAILY 01/10/17 [History] Ibuprofen [Motrin] 600 mg PO Q6HR PRN 01/10/17 [History] Aspirin 81 mg PO DAILY #30 chewable 01/11/17 [Rx] Atorvastatin [Lipitor] 40 mg PO HS #30 tablet 01/11/17 [Rx] Follow up Appointment(s)/Referral(s): Abrahan Mar MD [STAFF PHYSICIAN] - 1 Week None,Stated [Primary Care Provider] - 1-2 days Discharge Disposition: HOME SELF-CARE
--- NOTE | 2017-01-11 14:48 | P.HPIM ---
History of Present Illness This is a 36-year-old female who is transferred to us from another hospital because of her amnestic episodes for 2 days. Patient is alert and oriented 3 when you arouse her but when you go back in the room she states that she does not remember seeing her in the past. There is no headache there is no numbness or weakness. Patient is very sleepy according to her fianc. Patient's neurologist is Dr. Hidalgo. The CAT scan all lab work from the other facility have been reviewed and were normal. Patient was admitted for evaluation by neurology for possible TIA. Although as per the reports from nursing staff patient appears to have amnesia which appears to be intentional. Patient has episodes that she remembers everything. No weakness or any tingling or numbness. Patient denied any fever, chills, nausea, vomiting. Patient had a carotid Doppler which was negative. CAT scan was essentially within normal notes. Patient does have history of migraine and the symptoms are not consistent with her migraine symptoms. Patient did have headache yesterday. Review of Systems REVIEW OF SYSTEMS: CONSTITUTIONAL: No fever, no malaise, no fatigue. HEENT: No recent visual problems or hearing problems. Denied any sore throat. CARDIOVASCULAR: No chest pain, orthopnea, PND, no palpitations, no syncope. PULMONARY: No shortness of breath, no cough, no hemoptysis. GASTROINTESTINAL: No diarrhea, no nausea, no vomiting, no abdominal pain. Normoactive bowel sounds. NEUROLOGICAL: As mentioned in HPI HEMATOLOGICAL: Denies any bleeding or petechiae. GENITOURINARY: Denies any burning micturition, frequency, or urgency. MUSCULOSKELETAL/RHEUMATOLOGICAL: Denies any joint pain, swelling, or any muscle pain. ENDOCRINE: Denies any polyuria or polydipsia. The rest of the 14-point review of systems is negative. Past Medical History Past Medical History: Asthma, CVA/TIA, Fibromyalgia, GERD/Reflux, Hearing Disorder / Deafness, Hyperlipidemia, Myocardial Infarction ([place]), Osteoarthritis (OA), Seizure Disorder Additional Past Medical History / Comment(s): HX SEIZURES, NONE SINCE 2009. Vertigo; MIGRAINES; Peripheral Neuropathy. TACHYCARDIA; TIA X2; MINOR [place] X4. HIATAL HERNIA. Last Myocardial Infarction Date:: 2011 History of Any Multi-Drug Resistant Organisms: None Reported Past Surgical History: Cholecystectomy, Hysterectomy, Tubal Ligation, Uterine Ablation Additional Past Surgical History / Comment(s): EGD, COLONOSCOPY 12/24/14. LAPROSCOPIC REMOVAL OF RIGHT OVARY AND ADHESIONS AT [facility] 12/26/16. IN ER 01/08 FOR ABDOMINAL PAIN AND HAD FALLEN AND HIT HEAD ON [address]- SINCE HAS HAD ISSUES WITH REMEMBERING Past Anesthesia/Blood Transfusion Reactions: Previous Problems w/ Anesthesia, Family History of Problems w/ Anesthesia Additional Past Anesthesia/Blood Transfusion Reaction / Comment(s): Woke Up During ORAL Surgery in 2000; FATHER AND SIBLINGS ALSO WOKE DURING SURG. Past Psychological History: Bipolar, PTSD Smoking Status: Former smoker Past Alcohol Use History: Occasional Additional Past Alcohol Use History / Comment(s): QUIT 2013, SMOKED FOR 10 YRS, 3PPD/DOWN TO 1 PACK PER WEEK Past Drug Use History: None Reported - Past Family History Sister(s) Family Medical History: Cancer Mother Family Medical History: Cancer Mother Sister(s) Family Medical History: Cancer Medications and Allergies Home Medications Medication Instructions Recorded Confirmed Type SUMAtriptan SUCCINATE [Imitrex] 50 mg PO DAILY PRN 09/26/16 01/10/17 History Acetaminophen-Codeine 300-30mg 1 tab PO Q4H PRN 01/10/17 01/10/17 History [Tylenol w/codeine #3] Docusate [Colace] 100 mg PO DAILY 01/10/17 01/10/17 History Ibuprofen [Motrin] 600 mg PO Q6HR PRN 01/10/17 01/10/17 History Allergies Allergy/AdvReac Type Severity Reaction Status Date / Time shellfish derived Allergy Severe tongue Verified 01/10/17 15:23 swells and hives azithromycin [From Zithromax] Allergy Rash/Hives Verified 01/10/17 15:23 ceftriaxone sodium Allergy Rash/Hives Verified 01/10/17 15:23 [From Rocephin] ciprofloxacin [From Cipro] Allergy Rash/Hives Verified 01/10/17 15:23 ciprofloxacin HCl Allergy Rash/Hives Verified 01/10/17 15:23 [From Cipro] citalopram hydrobromide Allergy Rash/Hives Verified 01/10/17 14:26 [From Celexa] escitalopram oxalate Allergy Rash/Hives Verified 01/10/17 15:23 [From Lexapro] Fish Containing Products Allergy Rash/Hives, Verified 01/10/17 15:23 [Fish] tongue swells fosphenytoin sodium Allergy TONGUE Verified 01/10/17 15:23 [From Cerebyx] SWELLING hydrocodone bitartrate Allergy Rash/Hives Verified 01/10/17 15:23 [From Lortab] hydromorphone HCl Allergy Rash/Hives Verified 01/10/17 15:23 [From Dilaudid] lamotrigine [From Lamictal] Allergy Rash/Hives Verified 01/10/17 15:23 levetiracetam [From Keppra] Allergy Rash/Hives Verified 01/10/17 15:23 morphine Allergy Anaphylaxis Verified 01/10/17 15:23 sulfamethoxazole Allergy Rash/Hives Verified 01/10/17 15:23 [From Bactrim] trimethobenzamide HCl Allergy Rash/Hives Verified 01/10/17 14:26 [From Tigan] trimethoprim [From Bactrim] Allergy Rash/Hives Verified 01/10/17 15:23 venom-honey bee Allergy Anaphylaxis Verified 01/10/17 15:23 [bee venom (honey bee)] Physical Exam Vitals: Vital Signs Temp Pulse Pulse Resp BP BP Pulse Ox 01/11/17 08:00 97.8 F 67 16 119/56 96 01/11/17 04:28 97.1 F L 67 18 109/68 93 L 01/11/17 00:00 79 16 123/68 96 01/10/17 20:28 97.8 F 71 16 120/71 96 01/10/17 17:34 98.3 F 79 16 136/65 96 01/10/17 17:30 16 01/10/17 16:40 98.7 F 76 16 125/73 99 Intake and Output 01/10/17 01/11/17 01/11/17 22:59 06:59 14:59 Intake Total 120 318 Output Total 300 Balance 120 18 Intake: Oral 120 318 Output: Urine 300 Other: Voiding Method Toilet # Voids 2 Weight 96.8 kg PHYSICAL EXAMINATION: GENERAL: The patient is alert and oriented x3, not in any acute distress. Well developed, well nourished. HEENT: Pupils are round and equally reacting to light. EOMI. No scleral icterus. No conjunctival pallor. Normocephalic, atraumatic. No pharyngeal erythema. No thyromegaly. CARDIOVASCULAR: S1 and S2 present. No murmurs, rubs, or gallops. PULMONARY: Chest is clear to auscultation, no wheezing or crackles. ABDOMEN: Soft, nontender, nondistended, normoactive bowel sounds. No palpable organomegaly. MUSCULOSKELETAL: No joint swelling or deformity. EXTREMITIES: No cyanosis, clubbing, or pedal edema. NEUROLOGICAL: Gross neurological examination did not reveal any focal deficits. Episodes of amnesia as mentioned above SKIN: No rashes. Results CBC & Chem 7: 01/11/17 05:46 01/11/17 05:46 Labs: Abnormal Lab Results - Last 24 Hours (Table) 01/11/17 Range/Units 05:46 BUN 6 L (7-17) mg/dL AST 13 L (14-36) U/L Triglycerides 283 H (<150) mg/dL Cholesterol 232 H (<200) mg/dL LDL Cholesterol, Calc 139 H (0-99) mg/dL HDL Cholesterol 36 L (40-60) mg/dL Thrombosis Risk Factor Assmnt - Choose All That Apply Each Factor Represents 1 point: Obesity (BMI >25) Other Risk Factors: Yes Each Risk Factor Represents 2 Points: Laparoscopic surgery Other congenital or acquired thrombophilia - If yes, enter type in comment: No Thrombosis Risk Factor Assessment Total Risk Factor Score: 3 Thrombosis Risk Factor Assessment Level: Moderate Risk Assessment and Plan Plan: #1 episodes of amnesia: Patient was admitted to rule out TIA, possibly FTA extremely low. Patient's symptom may be psychosomatic. But will let neurology evaluated the patient. Patient will be started on aspirin. Carotid Doppler is essentially negative. #2 hyperlipidemia: Patient's atorvastatin dose will be increased to 40 mg. #3 history of migraine: Patient doesn't have any migraine exacerbation at this time #4 fibromyalgia #5 gastroesophageal reflux disease Patient probably can be discharged after evaluation by neurology as patient already had workup for TIA.
--- NOTE | 2017-01-11 15:56 | CT ---
EXAMINATION TYPE: CT brain wo con DATE OF EXAM: 01/11/2017 COMPARISON: CT brain August 08, 2012. MRI brain October 15, 2016. HISTORY: fall CT DLP: 1067 mGycm. Automated Exposure Control for Dose Reduction was Utilized. TECHNIQUE: CT scan of the head is performed without contrast. FINDINGS: There is no acute intracranial hemorrhage, mass effect, or midline shift identified. The ventricles and sulci are within normal limits in size. The globes are intact and the visualized sin uses are clear. The calvarium is intact. IMPRESSION: No acute intracranial hemorrhage, mass effect, or midline shift is seen. No significant change from prior studies.
[2017-01-11] MEDS ORDERED: ATORVASTATIN 80 MG TAB PO SCH (21:00)
[2017-01-12 01:34] VITALS: RESP 16
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
[2017-01-12 07:48] VITALS: BP 126/68; PULSE 98; TEMP 98.8
[2017-01-12] MEDS ORDERED: ASPIRIN 81 MG PO SCH (09:00)
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
--- NOTE | 2017-01-12 13:03 | P.DS ---
Providers Date of admission: 01/10/17 15:13 Attending physician: Drea Wylie Consults: 01/10/17 15:14 Consult Physician Routine Consulting Provider: Adalgisa Hidalgo Consult Reason/Comments: Amnesia Do you want consulting provider notified?: Yes 01/11/17 12:21 Consult Physician Routine Consulting Provider: Louis Espinoza Consult Reason/Comments: Inconsistancy of information, history of bipolar Do you want consulting provider notified?: Yes Primary care physician: Stated None Hospital Course: Patient was admitted for possibility of TIA although patient appears to have some kind of somatoform a conversion disorder and the patient is clinically doing well was a valid by neurology as well as psychiatrically both of these services cleared her for discharge. Patient will be discharged with instructions for the family to closely monitor her at home. Patient yesterday complained about fall which was not evidenced by anyone and that no significant injuries on exam. PHYSICAL EXAMINATION: GENERAL: The patient is alert and oriented x3, not in any acute distress. Well developed, well nourished. HEENT: Pupils are round and equally reacting to light. EOMI. No scleral icterus. No conjunctival pallor. Normocephalic, atraumatic. No pharyngeal erythema. No thyromegaly. CARDIOVASCULAR: S1 and S2 present. No murmurs, rubs, or gallops. PULMONARY: Chest is clear to auscultation, no wheezing or crackles. ABDOMEN: Soft, nontender, nondistended, normoactive bowel sounds. No palpable organomegaly. MUSCULOSKELETAL: No joint swelling or deformity. EXTREMITIES: No cyanosis, clubbing, or pedal edema. NEUROLOGICAL: Gross neurological examination did not reveal any focal deficits. SKIN: No rashes. #1 episodes of amnesia: Patient probably has the conversion disorders summary from disorder. Rule out TIA. Patient will be discharged today patient was elevated valid by psychiatric and neurology. #2 hyperlipidemia: Patient's atorvastatin dose will be increased to 40 mg. #3 history of migraine: Patient doesn't have any migraine exacerbation at this time #4 fibromyalgia #5 gastroesophageal reflux disease Plan - Discharge Summary New Discharge Prescriptions: New Aspirin 81 mg PO DAILY #30 chewable Atorvastatin [Lipitor] 40 mg PO HS #30 tablet Continue SUMAtriptan SUCCINATE [Imitrex] 50 mg PO DAILY PRN PRN Reason: Headache Ibuprofen [Motrin] 600 mg PO Q6HR PRN PRN Reason: Pain Acetaminophen-Codeine 300-30mg [Tylenol w/codeine #3] 1 tab PO Q4H PRN PRN Reason: Pain Docusate [Colace] 100 mg PO DAILY Discontinued Atorvastatin Calcium [Lipitor] 10 mg PO HS Discharge Medication List SUMAtriptan SUCCINATE [Imitrex] 50 mg PO DAILY PRN 09/26/16 [History] Acetaminophen-Codeine 300-30mg [Tylenol w/codeine #3] 1 tab PO Q4H PRN 01/10/17 [History] Docusate [Colace] 100 mg PO DAILY 01/10/17 [History] Ibuprofen [Motrin] 600 mg PO Q6HR PRN 01/10/17 [History] Aspirin 81 mg PO DAILY #30 chewable 01/11/17 [Rx] Atorvastatin [Lipitor] 40 mg PO HS #30 tablet 01/11/17 [Rx] Follow up Appointment(s)/Referral(s): Abrahan Mar MD [STAFF PHYSICIAN] - 1 Week (Please call office to set up new patient information, staff refused information from Nurse) Adalgisa Hidalgo MD [STAFF PHYSICIAN] - 1 Week (Office to call patient to set up appointment) None,Stated [Primary Care Provider] - 1-2 days Activity/Diet/Wound Care/Special Instructions: Please call counselor at [facility] to set up appointment. Discharge Disposition: HOME SELF-CARE
== END 2017-01-12 11:48 | disposition home or self-care (01) ==
LOC: EC 14:03 → INTOOBSV 15:13 → 6SEL 15:13
PROVIDERS: ADMIT Internal Medicine; ATTEND Internal Medicine
DX: R41.3 Other amnesia (principal); E78.5 Hyperlipidemia, unspecified; G43.909 Migraine, unspecified, not intractable, without status migrainosus; M79.7 Fibromyalgia; K21.9 Gastro-esophageal reflux disease without esophagitis; F31.9 Bipolar disorder, unspecified; F60.9 Personality disorder, unspecified; Z79.899 Other long term (current) drug therapy; Z88.2 Allergy status to sulfonamides; Z88.8 Allergy status to other drugs, medicaments and biological substances; Z88.1 Allergy status to other antibiotic agents; Z91.030 Bee allergy status; Z88.5 Allergy status to narcotic agent; Z91.013 Allergy to seafood; I25.2 Old myocardial infarction; Z86.73 Personal history of transient ischemic attack (TIA), and cerebral infarction without residual deficits; H91.90 Unspecified hearing loss, unspecified ear; Z87.891 Personal history of nicotine dependence; E66.9 Obesity, unspecified; Z68.38 Body mass index [BMI] 38.0-38.9, adult
CPT/HCPCS: 99285; 97161; 97165; 92523; 80061; 80053; 85027; 93880; 70450; G0378 ×4

== ENCOUNTER 2017-06-30 23:45 | Emergency (ER) | payer OTHER ==
[2017-06-30 23:49] VITALS: BP 146/78; PULSE 83; RESP 18; TEMP 97.8
[2017-07-01] MEDS ORDERED: KETOROLAC 30 MG/ML 1 ML VIAL IM STA (00:18)
[2017-07-01] MEDS ORDERED: ORPHENADRINE 30 MG/ML 2 ML VIAL IM STA (00:18)
--- NOTE | 2017-07-01 00:19 | ED ---
Back Pain HPI - General Chief Complaint: Back Pain/Injury Stated Complaint: L Leg Pain Time Seen by Provider: 07/01/17 00:05 Source: patient Limitations: no limitations - History of Present Illness Initial Comments: 36-year-old female patient presents to the emergency department today for complaints of left lower back pain with radiation down the left leg. Patient states that this started this morning when she woke from bed. Patient states that the pain increases with any movement or ambulation. She states that she did try resting throughout the day without relief. She denies any history of similar symptoms. She denies any numbness or tingling to the lower extremities. She denies a loss of bowel or bladder control. She denies any saddle anesthesia. She denies any falls or injury causing the pain. Patient denies any recent rash, fever, chills, shortness breath, chest pain, abdominal pain, nausea, vomiting, diarrhea, constipation, dizziness, weakness, hematuria, dysuria, urinary urgency, urinary frequency, headache, visual changes, or any other complaints. - Related Data Home Medications Medication Instructions Recorded Confirmed SUMAtriptan SUCCINATE [Imitrex] 50 mg PO DAILY PRN 09/26/16 01/10/17 Acetaminophen-Codeine 300-30mg 1 tab PO Q4H PRN 01/10/17 01/10/17 [Tylenol w/codeine #3] Docusate [Colace] 100 mg PO DAILY 01/10/17 01/10/17 Ibuprofen [Motrin] 600 mg PO Q6HR PRN 01/10/17 01/10/17 Previous Rx's Medication Instructions Recorded Aspirin 81 mg PO DAILY #30 chewable 01/11/17 Atorvastatin [Lipitor] 40 mg PO HS #30 tablet 01/11/17 Cyclobenzaprine [Flexeril] 10 mg PO TID #15 tab 07/01/17 Ibuprofen [Motrin] 600 mg PO Q8HR PRN #30 tab 07/01/17 Allergies Allergy/AdvReac Type Severity Reaction Status Date / Time shellfish derived Allergy Severe tongue Verified 06/30/17 23:49 swells and hives azithromycin [From Zithromax] Allergy Rash/Hives Verified 06/30/17 23:49 ceftriaxone sodium Allergy Rash/Hives Verified 06/30/17 23:49 [From Rocephin] ciprofloxacin [From Cipro] Allergy Rash/Hives Verified 06/30/17 23:49 ciprofloxacin HCl Allergy Rash/Hives Verified 06/30/17 23:49 [From Cipro] citalopram hydrobromide Allergy Rash/Hives Verified 06/30/17 23:49 [From Celexa] escitalopram oxalate Allergy Rash/Hives Verified 06/30/17 23:49 [From Lexapro] Fish Containing Products Allergy Rash/Hives, Verified 06/30/17 23:49 [Fish] tongue swells fosphenytoin sodium Allergy TONGUE Verified 06/30/17 23:49 [From Cerebyx] SWELLING hydrocodone bitartrate Allergy Rash/Hives Verified 06/30/17 23:49 [From Lortab] hydromorphone HCl Allergy Rash/Hives Verified 06/30/17 23:49 [From Dilaudid] lamotrigine [From Lamictal] Allergy Rash/Hives Verified 06/30/17 23:49 levetiracetam [From Keppra] Allergy Rash/Hives Verified 06/30/17 23:49 morphine Allergy Anaphylaxis Verified 06/30/17 23:49 sulfamethoxazole Allergy Rash/Hives Verified 06/30/17 23:49 [From Bactrim] trimethobenzamide HCl Allergy Rash/Hives Verified 06/30/17 23:49 [From Tigan] trimethoprim [From Bactrim] Allergy Rash/Hives Verified 06/30/17 23:49 venom-honey bee Allergy Anaphylaxis Verified 06/30/17 23:49 [bee venom (honey bee)] Review of Systems ROS Statement: Those systems with pertinent positive or pertinent negative responses have been documented in the HPI. ROS Other: All systems not noted in ROS Statement are negative. Past Medical History Past Medical History: Asthma, CVA/TIA, Fibromyalgia, GERD/Reflux, Hearing Disorder / Deafness, Hyperlipidemia, Myocardial Infarction ([place]), Osteoarthritis (OA), Seizure Disorder Additional Past Medical History / Comment(s): HX SEIZURES, NONE SINCE 2009. Vertigo; MIGRAINES; Peripheral Neuropathy. TACHYCARDIA; TIA X2; MINOR [place] X4. HIATAL HERNIA. Bipolar, personality disorder Last Myocardial Infarction Date:: 2011 History of Any Multi-Drug Resistant Organisms: None Reported Past Surgical History: Cholecystectomy, Hysterectomy, Tubal Ligation, Uterine Ablation Additional Past Surgical History / Comment(s): EGD, COLONOSCOPY 12/24/14. LAPROSCOPIC REMOVAL OF RIGHT OVARY AND ADHESIONS AT [facility] 12/26/16. IN ER 01/08 FOR ABDOMINAL PAIN AND HAD FALLEN AND HIT HEAD ON [place]- SINCE HAS HAD ISSUES WITH REMEMBERING Past Anesthesia/Blood Transfusion Reactions: Previous Problems w/ Anesthesia, Family History of Problems w/ Anesthesia Additional Past Anesthesia/Blood Transfusion Reaction / Comment(s): Woke Up During ORAL Surgery in 2000; FATHER AND SIBLINGS ALSO WOKE DURING SURG. Past Psychological History: Bipolar, PTSD Smoking Status: Former smoker Past Alcohol Use History: Occasional Past Drug Use History: None Reported - Past Family History Sister(s) Family Medical History: Cancer Mother Family Medical History: Cancer Mother Sister(s) Family Medical History: Cancer General Exam Limitations: no limitations General appearance: alert, in no apparent distress, other (Social well-developed , well-nourished adult female patient in no acute distress. Vital signs upon presentation are temperature 97.8F, pulse 83, respirations 18, blood pressure 146/78, pulse ox 98% on room air.) Eye exam: Present: normal appearance, PERRL, EOMI. Absent: scleral icterus, conjunctival injection, periorbital swelling ENT exam: Present: normal exam, normal oropharynx, mucous membranes moist Respiratory exam: Present: normal lung sounds bilaterally. Absent: respiratory distress, wheezes, rales, rhonchi, stridor Cardiovascular Exam: Present: regular rate, normal rhythm, normal heart sounds. Absent: systolic murmur, diastolic murmur, rubs, gallop, clicks GI/Abdominal exam: Present: soft, normal bowel sounds. Absent: distended, tenderness, guarding, rebound, rigid Back exam: Present: normal inspection, tenderness (Tenderness to the left lower back), other (Positive straight leg raise on the left side). Absent: vertebral tenderness Neurological exam: Present: alert, oriented X3, CN II-XII intact Psychiatric exam: Present: normal affect, normal mood Skin exam: Present: warm, dry, intact, normal color. Absent: rash Course Vital Signs 06/30/17 23:48 Temperature 97.8 F Pulse Rate 83 Respiratory 18 Rate Blood Pressure 146/78 O2 Sat by Pulse 98 Oximetry Medical Decision Making - Medical Decision Making 36-year-old female patient percents into the emergency department today for complaints of lower back pain with radiation down the left leg. Physical examination is unremarkable. She does exhibit a positive straight leg raise on the left side. Symptoms are consistent with sciatic back pain. She'll be given a dose of Norflex and Toradol here in the department. She is given a prescription for Motrin and Flexeril. She is instructed to apply warm moist heat and her perform gentle range of motion exercises. She is instructed to follow-up with her primary care physician if her symptoms do not improve over the next 1-2 days. She is instructed to return here immediately for any new, worsening, or concerning symptoms. She verbalizes understanding and agrees with this plan. Disposition Clinical Impression: Low back pain, Sciatica Disposition: HOME SELF-CARE Condition: Good Instructions: Sciatica (ED), Acute Low Back Pain (ED) Additional Instructions: Apply warm moist heat to the painful areas. Do gentle stretching exercises. Take medications as directed. Up with her primary care physician for further evaluation. Return here immediately for any new, worsening, or concerning symptoms. Prescriptions: Cyclobenzaprine [Flexeril] 10 mg PO TID #15 tab Ibuprofen [Motrin] 600 mg PO Q8HR PRN #30 tab PRN Reason: Pain Referrals: Sayda Prince MD [Primary Care Provider] - 1-2 days Time of Disposition: 00:19
== END 2017-07-01 00:36 | disposition home or self-care (01) ==
LOC: SUPCPDRO 23:45 → EC 23:45
DX: M54.42 Lumbago with sciatica, left side (principal); Z87.891 Personal history of nicotine dependence; Z79.899 Other long term (current) drug therapy; Z88.1 Allergy status to other antibiotic agents; Z88.5 Allergy status to narcotic agent; Z88.8 Allergy status to other drugs, medicaments and biological substances; Z91.013 Allergy to seafood; Z91.030 Bee allergy status
CPT/HCPCS: 99283; 96372 ×2; J2360; J1885

== ENCOUNTER 2017-07-18 12:27 | Observation (INO) | payer OTHER ==
--- NOTE | 2017-07-18 13:03 | ED ---
General Adult HPI - General Chief complaint: Syncope Stated complaint: Syncope, heart racing Time Seen by Provider: 07/18/17 12:39 Source: patient, RN notes reviewed, old records reviewed Mode of arrival: wheelchair Limitations: no limitations - History of Present Illness Initial comments: Chief complaint and history of present illness a 36-year-old female with a complaint of racing heart and feeling lightheaded. While her boyfriend was driving her to the hospital he told her that she had a episode of passing out. The patient does not remember this. No apparent seizure activity was noted. Patient denies any pain. Patient does have a long history of palpitations. States she had a month long Holter monitor in the past. Was told she has 2 different types of rapid heartbeat. Try not to medications one made her blood pressure dropped too small the evident help. She states she was told she may need an AICD. - Related Data Home Medications Medication Instructions Recorded Confirmed SUMAtriptan SUCCINATE [Imitrex] 50 mg PO DAILY PRN 09/26/16 07/18/17 Atorvastatin [Lipitor] 80 mg PO HS 07/18/17 07/18/17 EPINEPHrine [Epipen 2-Varun] 0.3 mg IM ONCE PRN 07/18/17 07/18/17 Allergies Allergy/AdvReac Type Severity Reaction Status Date / Time shellfish derived Allergy Severe tongue Verified 07/18/17 12:37 swells and hives azithromycin [From Zithromax] Allergy Rash/Hives Verified 07/18/17 12:37 ceftriaxone sodium Allergy Rash/Hives Verified 07/18/17 12:37 [From Rocephin] ciprofloxacin [From Cipro] Allergy Rash/Hives Verified 07/18/17 12:37 ciprofloxacin HCl Allergy Rash/Hives Verified 07/18/17 12:37 [From Cipro] citalopram hydrobromide Allergy Rash/Hives Verified 07/18/17 12:37 [From Celexa] escitalopram oxalate Allergy Rash/Hives Verified 07/18/17 12:37 [From Lexapro] Fish Containing Products Allergy Rash/Hives, Verified 07/18/17 12:37 [Fish] tongue swells fosphenytoin sodium Allergy TONGUE Verified 07/18/17 12:37 [From Cerebyx] SWELLING hydrocodone bitartrate Allergy Rash/Hives Verified 07/18/17 12:37 [From Lortab] hydromorphone HCl Allergy Rash/Hives Verified 07/18/17 12:37 [From Dilaudid] lamotrigine [From Lamictal] Allergy Rash/Hives Verified 07/18/17 12:37 levetiracetam [From Keppra] Allergy Rash/Hives Verified 07/18/17 12:37 morphine Allergy Anaphylaxis Verified 07/18/17 12:37 sulfamethoxazole Allergy Rash/Hives Verified 07/18/17 12:37 [From Bactrim] trimethobenzamide HCl Allergy Rash/Hives Verified 07/18/17 12:37 [From Tigan] trimethoprim [From Bactrim] Allergy Rash/Hives Verified 07/18/17 12:37 venom-honey bee Allergy Anaphylaxis Verified 07/18/17 12:37 [bee venom (honey bee)] Review of Systems ROS Statement: Those systems with pertinent positive or pertinent negative responses have been documented in the HPI. review of systems currently no headache or visual acuity changes no chest pain shortness breath GI/ problems no complaint of any neuro deficits. All systems are reviewed.Past medical problems significant for 2 TIAs, fibromyalgia, GERD, hyperlipidemia, she states she's had 2 previous MIs at another hospital but without stents. Osteoarthritis, seizure disorder for she does not take any medications her last seizure was in 2011. The patient 's surgeries include cholecystectomy, partial hysterectomy, colonoscopy. Patient denies smoking denies drinking. ROS Other: All systems not noted in ROS Statement are negative. Past Medical History Past Medical History: Asthma, CVA/TIA, Fibromyalgia, GERD/Reflux, Hearing Disorder / Deafness, Hyperlipidemia, Myocardial Infarction ([place]), Osteoarthritis (OA), Seizure Disorder Additional Past Medical History / Comment(s): HX SEIZURES, NONE SINCE 2009. Vertigo; MIGRAINES; Peripheral Neuropathy. TACHYCARDIA; TIA X2; MINOR [place] X4. HIATAL HERNIA. Bipolar, personality disorder Last Myocardial Infarction Date:: 2011 History of Any Multi-Drug Resistant Organisms: None Reported Past Surgical History: Cholecystectomy, Hysterectomy, Tubal Ligation, Uterine Ablation Additional Past Surgical History / Comment(s): EGD, COLONOSCOPY 12/24/14. LAPROSCOPIC REMOVAL OF RIGHT OVARY AND ADHESIONS AT [facility] 12/26/16. IN ER 01/08 FOR ABDOMINAL PAIN AND HAD FALLEN AND HIT HEAD ON [place]- SINCE HAS HAD ISSUES WITH REMEMBERING Past Anesthesia/Blood Transfusion Reactions: Previous Problems w/ Anesthesia, Family History of Problems w/ Anesthesia Additional Past Anesthesia/Blood Transfusion Reaction / Comment(s): Woke Up During ORAL Surgery in 2000; FATHER AND SIBLINGS ALSO WOKE DURING SURG. Past Psychological History: Bipolar, PTSD Smoking Status: Former smoker Past Alcohol Use History: Occasional Past Drug Use History: None Reported - Past Family History Sister(s) Family Medical History: Cancer Mother Family Medical History: Cancer Mother Sister(s) Family Medical History: Cancer General Exam - General Exam Comments Initial Comments: General: The patient is awake and alert, in no distress, and does not appear acutely ill. here because of feeling lightheaded with palpitations and a syncopal episode while coming to the hospital and her boyfriend's car. Vital signs temperature 99.4 pulse 96 respiratory rate 20 pulse ox 99% room air blood pressure 120/79 Eye: Pupils are equal, round and reactive to light, extra-ocular movements are intact ; there is normal conjunctiva bilaterally. No signs of icterus. Ears, nose, mouth and throat: There are moist mucous membranes and no oral lesions. Neck: The neck is supple, there is no tenderness . Cardiovascular: There is a regular rate and rhythm. No murmur, rub or gallop is appreciated.patient was placed on a monitor and told to push the record button if while in emergency room she has an episode of rapid heartbeatpalpitations. Respiratory: Lungs are clear to auscultation, respirations are non-labored, breath sounds are equal. No wheezes, stridor, rales, or rhonchi. Gastrointestinal: Soft, non-distended, non-tender abdomen without masses or organomegaly noted. There is no rebound or guarding present. No CVA tenderness. Bowel sounds are unremarkable. Back: There is no tenderness, No rashes noted. Musculoskeletal: Normal ROM, no tenderness, There is no pedal edema. There is no calf tenderness or swelling. Sensation intact. Pulses equal bilaterally 2+. Neurological: CN II-XII intact, There are no obvious motor or sensory deficits. Coordination appears grossly intact. Speech is normal.no focal or lateralizing findings. Skin: Skin is warm and dry and no rashes or lesions are noted. Psychiatric: Cooperative, appropriate mood & affect, normal judgment.no complaint of depression. Limitations: no limitations Course Vital Signs 07/18/17 07/18/17 07/18/17 12:29 12:40 14:18 Temperature 99.4 F Pulse Rate 96 91 83 Respiratory 20 18 18 Rate Blood Pressure 128/79 149/69 117/80 O2 Sat by Pulse 99 98 99 Oximetry EKG Findings - EKG Comments: EKG Findings:: EKG was done and reviewed at 1327 showing normal sinus rhythm, suspicious for a Q-wave in lead 3 therefore cannot rule out possibility of inferior infarct age undetermined. Rate 77 LA interval was 136 QRS [address] Forrester. this EKG was compared to one done 09/08/2016. At which time the lead 3 did not show what is seen today.Dr. Forrester Medical Decision Making - Medical Decision Making Medical decision making; patient's here because of syncopal episode while having palpitations. The patient's labs show white count 7.8 hemoglobin 13.7 hematocrit 40.6. D- dimer normal at 0.30 with a potassium 4.1. BUN 9 creatinine 0.57 GFR greater than 90. Glucose 85. CK 166 troponin less than 0.012 and drug triage negative for drugs of abuse. Chest x-ray was done and reviewed by radiologist and his findings are the Cardizem mediastinal silhouette, aorta, and pulmonary vasculature within normal limits. Lungs and pleural spaces are clear. Impression no acute cardiopulmonary process as read by Dr. Mcclure. The patient be admitted to Dr. Salcedo with consultation from cardiology. - Lab Data Result diagrams: 07/18/17 13:21 07/18/17 13:21 Lab Results 07/18/17 07/18/17 07/18/17 Range/Units 13:21 13:21 13:21 WBC 7.8 (3.8-10.6) k/uL RBC 4.78 (3.80-5.40) m/uL Hgb 13.7 (11.4-16.0) gm/dL Hct 40.6 (34.0-46.0) % MCV 85.0 (80.0-100.0) fL MCH 28.6 (25.0-35.0) pg MCHC 33.7 (31.0-37.0) g/dL RDW 13.3 (11.5-15.5) % Plt Count 210 (150-450) k/uL Neutrophils % 66 % Lymphocytes % 26 % Monocytes % 5 % Eosinophils % 2 % Basophils % 1 % Neutrophils # 5.2 (1.3-7.7) k/uL Lymphocytes # 2.0 (1.0-4.8) k/uL Monocytes # 0.4 (0-1.0) k/uL Eosinophils # 0.1 (0-0.7) k/uL Basophils # 0.1 (0-0.2) k/uL D-Dimer (<0.60) mg/L FEU Sodium 142 (137-145) mmol/L Potassium 4.1 (3.5-5.1) mmol/L Chloride 107 (98-107) mmol/L Carbon Dioxide 24 (22-30) mmol/L Anion Gap 11 mmol/L BUN 9 (7-17) mg/dL Creatinine 0.57 (0.52-1.04) mg/dL Est GFR (CKD-EPI)AfAm >90 (>60 ml/min/1.73 sqM) Est GFR (CKD-EPI)NonAf >90 (>60 ml/min/1.73 sqM) Glucose 85 (74-99) mg/dL Calcium 8.7 (8.4-10.2) mg/dL Total Bilirubin 0.5 (0.2-1.3) mg/dL AST 21 (14-36) U/L ALT 28 (9-52) U/L Alkaline Phosphatase 69 (38-126) U/L Total Creatine Kinase 166 H (30-135) U/L CK-MB (CK-2) <0.2 (0.0-2.4) ng/mL CK-MB (CK-2) Rel Index Troponin I <0.012 (0.000-0.034) ng/mL Total Protein 6.9 (6.3-8.2) g/dL Albumin 3.9 (3.5-5.0) g/dL Urine Opiates Screen (NotDetected) Ur Oxycodone Screen (NotDetected) Urine Methadone Screen (NotDetected) Ur Propoxyphene Screen (NotDetected) Ur Barbiturates Screen (NotDetected) U Tricyclic Antidepress (NotDetected) Ur Phencyclidine Scrn (NotDetected) Ur Amphetamines Screen (NotDetected) U Methamphetamines Scrn (NotDetected) U Benzodiazepines Scrn (NotDetected) Urine Cocaine Screen (NotDetected) U Marijuana (THC) Screen (NotDetected) 07/18/17 07/18/17 Range/Units 13:21 13:50 WBC (3.8-10.6) k/uL RBC (3.80-5.40) m/uL Hgb (11.4-16.0) gm/dL Hct (34.0-46.0) % MCV (80.0-100.0) fL MCH (25.0-35.0) pg MCHC (31.0-37.0) g/dL RDW (11.5-15.5) % Plt Count (150-450) k/uL Neutrophils % % Lymphocytes % % Monocytes % % Eosinophils % % Basophils % % Neutrophils # (1.3-7.7) k/uL Lymphocytes # (1.0-4.8) k/uL Monocytes # (0-1.0) k/uL Eosinophils # (0-0.7) k/uL Basophils # (0-0.2) k/uL D-Dimer 0.30 (<0.60) mg/L FEU Sodium (137-145) mmol/L Potassium (3.5-5.1) mmol/L Chloride (98-107) mmol/L Carbon Dioxide (22-30) mmol/L Anion Gap mmol/L BUN (7-17) mg/dL Creatinine (0.52-1.04) mg/dL Est GFR (CKD-EPI)AfAm (>60 ml/min/1.73 sqM) Est GFR (CKD-EPI)NonAf (>60 ml/min/1.73 sqM) Glucose (74-99) mg/dL Calcium (8.4-10.2) mg/dL Total Bilirubin (0.2-1.3) mg/dL AST (14-36) U/L ALT (9-52) U/L Alkaline Phosphatase (38-126) U/L Total Creatine Kinase (30-135) U/L CK-MB (CK-2) (0.0-2.4) ng/mL CK-MB (CK-2) Rel Index Troponin I (0.000-0.034) ng/mL Total Protein (6.3-8.2) g/dL Albumin (3.5-5.0) g/dL Urine Opiates Screen Not Detected (NotDetected) Ur Oxycodone Screen Not Detected (NotDetected) Urine Methadone Screen Not Detected (NotDetected) Ur Propoxyphene Screen Not Detected (NotDetected) Ur Barbiturates Screen Not Detected (NotDetected) U Tricyclic Antidepress Not Detected (NotDetected) Ur Phencyclidine Scrn Not Detected (NotDetected) Ur Amphetamines Screen Not Detected (NotDetected) U Methamphetamines Scrn Not Detected (NotDetected) U Benzodiazepines Scrn Not Detected (NotDetected) Urine Cocaine Screen Not Detected (NotDetected) U Marijuana (THC) Screen Not Detected (NotDetected) Disposition Clinical Impression: Rapid palpitations, Syncopal episodes Disposition: ADMITTED IP TO THIS [facility] Condition: Fair Referrals: Sayda Prince MD [Primary Care Provider] - 1-2 days
[2017-07-18 13:36] LABS: Basophils # (A) 0.1 k/uL (0-0.2); Basophils % (A) 1 %; Eosinophils # (A) 0.1 k/uL (0-0.7); Eosinophils % (A) 2 %; HCT 40.6 % (34.0-46.0); HGB 13.7 gm/dL (11.4-16.0); Lymphocytes % (A) 26 %; MCH 28.6 pg (25.0-35.0); MCHC 33.7 g/dL (31.0-37.0); Mean Platelet Volume 9.8; Monocytes # (A) 0.4 k/uL (0-1.0); Monocytes % (A) 5 %; Neutrophils # (A) 5.2 k/uL (1.3-7.7); Neutrophils % (A) 66 %; Platelet Count 210 k/uL (150-450); RBC 4.78 m/uL (3.80-5.40); RDW 13.3 % (11.5-15.5); WBC 7.8 k/uL (3.8-10.6)
--- NOTE | 2017-07-18 13:40 | XR ---
EXAMINATION TYPE: XR chest 2V DATE OF EXAM: 07/18/2017 COMPARISON: None HISTORY: 36-year-old female with syncope TECHNIQUE: PA and lateral views FINDINGS: The cardiomediastinal silhouette, aorta, and pulmonary vasculature are within normal limits. Lungs an d pleural spaces are clear. IMPRESSION: No acute cardiopulmonary process.
[2017-07-18 13:46] LABS: ALT 28 U/L (9-52); AST 21 U/L (14-36); Albumin 3.9 g/dL (3.5-5.0); Alkaline Phosphatase 69 U/L (38-126); Anion Gap 11 mmol/L; Blood Urea Nitrogen 9 mg/dL (7-17); Calcium 8.7 mg/dL (8.4-10.2); Carbon Dioxide 24 mmol/L (22-30); Chloride 107 mmol/L (98-107); Glucose 85 mg/dL (74-99); Potassium 4.1 mmol/L (3.5-5.1); Sodium 142 mmol/L (137-145); Total Bilirubin 0.5 mg/dL (0.2-1.3); Total Protein 6.9 g/dL (6.3-8.2)
[2017-07-18 14:11] LABS: Creatine Kinase 166 U/L (30-135)
[2017-07-18 14:24] LABS: Creatine Kinase MB <0.2 ng/mL (0.0-2.4); Troponin I <0.012 ng/mL (0.000-0.034)
[2017-07-18 14:39] LABS: Amphetamine Screen,Urine Not Detected (NotDetected); Barbiturate Screen,Urine Not Detected (NotDetected); Benzodiazepines Screen,Urine Not Detected (NotDetected); Cocaine Screen,Urine Not Detected (NotDetected); Methadone Screen, Urine Not Detected (NotDetected); Opiate Screen,Urine Not Detected (NotDetected); Oxycodone Screen, Urine Not Detected (NotDetected); Phencyclidine Screen,Urine Not Detected (NotDetected); Tricyclic Antidepressant,Urine Not Detected (NotDetected); Urn Cannabinoid Scrn Not Detected (NotDetected)
[2017-07-18] MEDS ORDERED: ACETAMINOPHEN TAB 325 MG TAB PO PRN (14:57)
[2017-07-18] MEDS ORDERED: NALOXONE 0.4 MG/ML 1 ML VIAL IV PRN (14:57)
[2017-07-18] MEDS ORDERED: SODIUM CHLORIDE 0.9% 1,000 ML IV SCH (15:00)
[2017-07-18] MEDS ORDERED: SUMAtriptan SUCCINATE 50 MG TAB PO PRN (17:12)
[2017-07-18 18:44] VITALS: BMI 38.3
[2017-07-18 19:52] LABS: Creatine Kinase 153 U/L (30-135)
[2017-07-18 20:03] LABS: Creatine Kinase MB <0.2 ng/mL (0.0-2.4); Troponin I <0.012 ng/mL (0.000-0.034)
[2017-07-18] MEDS ORDERED: ATORVASTATIN 80 MG TAB PO SCH (21:00)
[2017-07-18] MEDS: FAMOTIDINE 20 MG TAB PO SCH (22:56)
[2017-07-19 02:07] LABS: Creatine Kinase 134 U/L (30-135)
[2017-07-19 02:21] LABS: Creatine Kinase MB <0.2 ng/mL (0.0-2.4); Troponin I <0.012 ng/mL (0.000-0.034)
--- NOTE | 2017-07-19 03:27 | HP ---
HISTORY AND PHYSICAL DATE OF SERVICE: 07/18/2017 CHIEF COMPLAINTS: Palpitations and syncope. HISTORY OF PRESENT ILLNESS: This 36-year-old woman with a past medical history of multiple medical problems including history of CVA, TIA, fibromyalgia, hyperlipidemia, DJD, history of seizure disorder, history of migraines, peripheral neuropathy, tachycardia, hysterectomy , history of bipolar depression, PTSD, personality disorder, history of nicotine dependence being followed by Dr. Sayda Prince in the outpatient setting was admitted to [facility] with complaints of tachycardia and syncope. The patient previously was evaluated for tachycardia apparently in the cardiology office. The results are not available at this time. The patient apparently had multiple and a possibility of AICD was considered according to her. Currently the patient does have racing heart and feeding lighted. The patient is dizzy and the boyfriend was driving her to the hospital but then she passed out for several minutes according to her. The patient is unable to remember anything. No apparent seizure activity was noted and the patient was admitted for further evaluation and treatment. There is no history of any fever, rigors or chills. No headache, any hematochezia or melena at this time. PAST MEDICAL HISTORY: History of fibromyalgia, hyperlipidemia, myocardial infarction, DJD or seizure disorder. MEDICATIONS: Prior to admission include: 1. Imitrex 50 mg daily p.r.n. 2. EpiPen p.r.n. 3. Lipitor 80 mg q.h.s. ALLERGIES: MULTIPLE ALLERGIES, SHELLFISH, ZITHROMAX, CEFTRIAXONE, CIPRO, CELEXA, LEXAPRO, FISH CONTAINING PRODUCTS, CELEBREX, HYDROCODONE, LAMICTAL, KEPPRA, MORPHINE, SULFA, BACTRIM, TIGAN, HONEY BEE VENOM. FAMILY HISTORY: History of cancer in the family. SOCIAL HISTORY: Previous history of smoking. No history of current smoking or alcohol intake. REVIEW OF SYSTEMS: ENT: No diminished vision or hearing. Cardiovascular as mentioned earlier. Respiratory: As mentioned earlier. GI no nausea. : No dysuria. NERVOUS SYSTEM: As mentioned. ALLERGY/IMMUNOLOGY: No asthma or hayfever. Musculoskeletal: As mentioned. Hematology/Oncology: No history of anemia. Endocrine: No history of diabetes or hypothyroidism. CONSTITUTIONAL: As mentioned earlier. Dermatology: Negative. Rheumatology: Negative. Psychiatric: As mentioned earlier. PHYSICAL EXAMINATION: Alert and oriented times three. Pulse is 77, blood pressure 144/70, respiration 18, temperature 98.7, pulse ox 100% on room air. HEENT: Conjunctivae normal. Neck: No jugular venous distention. Cardiovascular: S1, S2. Respirations: Breath sounds diminished in the bases. No rhonchi and no crackles. ABDOMEN: Soft, nontender. No mass palpable. Legs no edema and no swelling. NERVOUS SYSTEM: Higher functions as mentioned earlier, moves all 4 limbs, no focal motor or sensory deficits. Lymphatics: No lymph nodes palpable in the neck, axillae or groin. Skin no ulcer, rashes or bleeding. LAB STUDIES: CBC within normal limits and CMP normal. Creatinine kinase 166 and drug screen is negative. ASSESSMENT: 1. Syncope and tachycardia for evaluation. 2. History of cardiac arrhythmia previously apparently. 3. History of fibromyalgia. 4. History of transient ischemic attack. 5. Hyperlipidemia. 6. History of degenerative joint disease. 7. History of seizure disorder. 8. History of migraine. 9. History of cholecystectomy. 10.History of bipolar depression/PTSD. 11.History of personality disorder. 12.History of nicotine dependence. 13.History of THC. RECOMMENDATIONS AND DISCUSSION: This 36-year-old woman who presented with multiple complex medical issues, we will monitor the patient closely continue the current medications, management and symptomatic treatment. Otherwise at this time, I recommend close telemetry. Orthostatic vitals. I would also recommend Cardiology consultation for further evaluation. Electrolytes are normal so far. I would also check a TSH for completion sake also. Continue to monitor. See orders for details. Further recommendations to follow. Prognosis guarded because of multiple medical problems. Copy of this dictation being forwarded to Dr. Sayda Prince who is the primary physician. 1. Abdomen: Soft. MMODL / IJN: [id number] / MTDD
[2017-07-19 04:43] LABS: Appearance,Urine Clear (Clear); Bilirubin,Urine Negative (Negative); Blood,Urine Negative (Negative); Color,Urine Yellow; Glucose,Urine (UA) Negative (Negative); Ketones,Urine Negative (Negative); Leukocyte Esterase,Urine Negative (Negative); Nitrite,Urine Negative (Negative); Protein,Urine Trace (Negative); Specific Gravity,Urine 1.023 (1.001-1.035); Urobilinogen,Urine <2.0 mg/dL (<2.0)
[2017-07-19 08:02] VITALS: RESP 18
--- NOTE | 2017-07-19 11:31 | P.CRDCN ---
History of Present Illness Consult date: 07/19/17 Consult reason: sycope History of present illness: Mrs. Vazquez is a pleasant 36-year-old female past medical history significant for dyslipidemia, TIA, fibromyalgia, seizures, bipolar and unexplained tachycardia. She sees Dr. Posada in the office. We have been asked to see her in consultation for palpitations and syncope. She states Monday while laying on the couch watching TV she started with palpitations and dizziness. She denies chest pain, shortness of breath, nausea or vomiting. She went to bed still feeling mildly tachycardic but not dizzy. She woke up with the same symptoms but this time was diaphoretic. Her boyfriend decided to bring to the hospital. On the way here she passed out in the car. Per her boyfriend she had her eyes closed and he was unable to arouse her. There was no seizure activity, no loss of bowel/bladder, no preceding chest pain, dizziness or palpitations. Apparently the LOC lasted around 2-3 minutes. She ultimately woke up on her own. Denies any further episodes of syncope. While in ED yesterday afternoon she had an episode of palpitations again and telemetry tracings reveal a sinus tachycardia rate up to 111. No further episodes since. She is seen resting comfortably in bed with family at the bedside. She has had extensive workup in the office with Dr. Posada for these similar complaints. She had a negative exercise stress test in September 2016. She also has worn an event monitor which revealed no significant arrhythmias. He has empirically treated her with metoprolol in the past which has caused dizziness. She is unable to tolerate this medication. EKG on arrival reveals sinus mechanism with T-wave inversions in the inferior leads. This is the same compared to old EKGs. Chest x-ray is negative for an acute cardiopulmonary process. Laboratory data reviewed, hemoglobin 13.7, platelets 210, d-dimer negative, potassium 4.1, creatinine 0.57, cardiac enzymes negative 3, TSH 0.895. Current cardiac medications include atorvastatin 80 mg daily. Review of Systems At the time of my exam: CONSTITUTIONAL: Denies fever. Denies chills. EYES: Denies blurred vision. Denies vision changes. Denies eye pain. EARS, NOSE, MOUTH & THROAT: Denies headache. Denies sore throat. Denies ear pain. CARDIOVASCULAR: Denies chest pain. Denies shortness of breath. Denies orthopnea. Denies PND. Denies palpitations. RESPIRATORY: Denies cough. GASTROINTESTINAL: Denies abdominal pain. Denies diarrhea. Denies constipation. Denies nausea. Denies vomiting. MUSCULOSKELETAL: Denies myalgias. INTEGUMENTARY: Denies pruitis. Denies rash. NEUROLOGIC: Denies numbness. Denies tingling. Denies weakness. PSYCHIATRIC: Denies anxiety. Denies depression. ENDOCRINE: Denies fatigue. Denies weight change. Denies polydipsia. Denies polyurina. GENITOURINARY: Denies burning, hematuria or urgency with micturation. HEMATOLOGIC: Denies history of anemia. Denies bleeding. Past Medical History Past Medical History: CVA/TIA, Fibromyalgia, Hearing Disorder / Deafness, Hyperlipidemia, Myocardial Infarction ([place]), Osteoarthritis (OA), Seizure Disorder Additional Past Medical History / Comment(s): HX SEIZURES, last one in 2016. Vertigo; MIGRAINES; Peripheral Neuropathy. TACHYCARDIA; TIA X2; MINOR [place] X4. Bipolar, personality disorder Last Myocardial Infarction Date:: 2011 History of Any Multi-Drug Resistant Organisms: None Reported Past Surgical History: Cholecystectomy, Hysterectomy, Tubal Ligation, Uterine Ablation Additional Past Surgical History / Comment(s): EGD, COLONOSCOPY 12/24/14. LAPROSCOPIC REMOVAL OF RIGHT OVARY AND ADHESIONS AT [facility] 12/26/16. IN ER 01/08 FOR ABDOMINAL PAIN AND HAD FALLEN AND HIT HEAD ON [place]- SINCE HAS HAD ISSUES WITH REMEMBERING, hital hernia repair Past Anesthesia/Blood Transfusion Reactions: Previous Problems w/ Anesthesia, Family History of Problems w/ Anesthesia Additional Past Anesthesia/Blood Transfusion Reaction / Comment(s): Woke Up During ORAL Surgery in 2000; FATHER AND SIBLINGS ALSO WOKE DURING SURG. Past Psychological History: Bipolar, Depression, PTSD Smoking Status: Former smoker Past Alcohol Use History: Occasional Additional Past Alcohol Use History / Comment(s): QUIT 2013, SMOKED FOR 10 YRS, 3PPD/DOWN TO 1 PACK PER WEEK Past Drug Use History: None Reported - Past Family History Sister(s) Family Medical History: Cancer Mother Family Medical History: Cancer Mother Sister(s) Family Medical History: Cancer Medications and Allergies Home Medications Medication Instructions Recorded Confirmed Type SUMAtriptan SUCCINATE [Imitrex] 50 mg PO DAILY PRN 09/26/16 07/18/17 History Atorvastatin [Lipitor] 80 mg PO HS 07/18/17 07/18/17 History EPINEPHrine [Epipen 2-Varun] 0.3 mg IM ONCE PRN 07/18/17 07/18/17 History Allergies Allergy/AdvReac Type Severity Reaction Status Date / Time shellfish derived Allergy Severe tongue Verified 07/18/17 12:37 swells and hives azithromycin [From Zithromax] Allergy Rash/Hives Verified 07/18/17 12:37 ceftriaxone sodium Allergy Rash/Hives Verified 07/18/17 12:37 [From Rocephin] ciprofloxacin [From Cipro] Allergy Rash/Hives Verified 07/18/17 12:37 ciprofloxacin HCl Allergy Rash/Hives Verified 07/18/17 12:37 [From Cipro] citalopram hydrobromide Allergy Rash/Hives Verified 07/18/17 12:37 [From Celexa] escitalopram oxalate Allergy Rash/Hives Verified 07/18/17 12:37 [From Lexapro] Fish Containing Products Allergy Rash/Hives, Verified 07/18/17 12:37 [Fish] tongue swells fosphenytoin sodium Allergy TONGUE Verified 07/18/17 12:37 [From Cerebyx] SWELLING hydrocodone bitartrate Allergy Rash/Hives Verified 07/18/17 12:37 [From Lortab] hydromorphone HCl Allergy Rash/Hives Verified 07/18/17 12:37 [From Dilaudid] lamotrigine [From Lamictal] Allergy Rash/Hives Verified 07/18/17 12:37 levetiracetam [From Keppra] Allergy Rash/Hives Verified 07/18/17 12:37 morphine Allergy Anaphylaxis Verified 07/18/17 12:37 sulfamethoxazole Allergy Rash/Hives Verified 07/18/17 12:37 [From Bactrim] trimethobenzamide HCl Allergy Rash/Hives Verified 07/18/17 12:37 [From Tigan] trimethoprim [From Bactrim] Allergy Rash/Hives Verified 07/18/17 12:37 venom-honey bee Allergy Anaphylaxis Verified 07/18/17 12:37 [bee venom (honey bee)] Physical Exam Vitals: Vital Signs Temp Pulse Pulse Resp BP BP BP 07/19/17 08:00 98.2 F 69 18 07/19/17 03:56 15 07/19/17 00:34 98.0 F 71 15 120/76 123/70 07/19/17 00:00 15 07/18/17 23:54 98.7 F 77 15 07/18/17 20:00 15 07/18/17 19:06 98.1 F 91 15 07/18/17 18:50 91 18 07/18/17 18:18 99.0 F 91 18 07/18/17 17:57 97 F L 90 20 106/67 07/18/17 16:21 89 18 108/69 07/18/17 15:23 90 18 124/65 07/18/17 14:18 83 18 117/80 07/18/17 12:40 91 18 149/69 07/18/17 12:29 99.4 F 96 20 128/79 BP BP Pulse Ox 07/19/17 08:00 114/74 96 07/19/17 03:56 07/19/17 00:34 119/72 96 07/19/17 00:00 07/18/17 23:54 144/79 100 07/18/17 20:00 07/18/17 19:06 134/77 91 L 07/18/17 18:50 07/18/17 18:18 132/82 94 L 07/18/17 17:57 93 L 07/18/17 16:21 98 07/18/17 15:23 96 07/18/17 14:18 99 07/18/17 12:40 98 07/18/17 12:29 99 Intake and Output 07/18/17 07/19/17 07/19/17 22:59 06:59 14:59 Intake Total 600 Balance 600 Intake: Oral 600 Other: Voiding Method Toilet Toilet # Voids 1 Weight 95.1 kg 95.1 kg Blood pressure 114/74 heart rate 69 afebrile maintaining oxygen saturations on room air GENERAL: This is a 36-year-old female in no apparent distress at the time of my examination. Obese. HEENT: Head is atraumatic, normocephalic. Pupils are equal, round. Sclerae anicteric. Conjunctivae are clear. Mucous membranes of the mouth are moist. Neck is supple. There is no jugular venous distention. No carotid bruit is heard. LUNGS: Clear to auscultation no wheezes, rales or rhonchi. No chest wall tenderness is noted on palpation or with deep breathing. HEART: Regular rate and rhythm without murmurs, rubs or gallops. S1 and S2 heard. ABDOMEN: Soft, nontender. Bowel sounds are heard. No organomegaly noted. EXTREMITIES: No evidence of peripheral edema and no calf tenderness noted. VASCULAR: Radial and dorsalis pedis pulses palpated, no evidence of clubbing. NEUROLOGIC: Patient is awake, alert and oriented x3. Results 07/18/17 13:21 07/18/17 13:21 Cardiac Enzymes 07/18/17 07/18/17 07/18/17 Range/Units 13:21 13:21 19:02 AST 21 (14-36) U/L CK-MB (CK-2) <0.2 <0.2 (0.0-2.4) ng/mL Troponin I <0.012 <0.012 (0.000-0.034) ng/mL 07/19/17 Range/Units 01:15 AST (14-36) U/L CK-MB (CK-2) <0.2 (0.0-2.4) ng/mL Troponin I <0.012 (0.000-0.034) ng/mL CBC 07/18/17 Range/Units 13:21 WBC 7.8 (3.8-10.6) k/uL RBC 4.78 (3.80-5.40) m/uL Hgb 13.7 (11.4-16.0) gm/dL Hct 40.6 (34.0-46.0) % Plt Count 210 (150-450) k/uL Comprehensive Metabolic Panel 07/18/17 Range/Units 13:21 Sodium 142 (137-145) mmol/L Potassium 4.1 (3.5-5.1) mmol/L Chloride 107 (98-107) mmol/L Carbon Dioxide 24 (22-30) mmol/L BUN 9 (7-17) mg/dL Creatinine 0.57 (0.52-1.04) mg/dL Glucose 85 (74-99) mg/dL Calcium 8.7 (8.4-10.2) mg/dL AST 21 (14-36) U/L ALT 28 (9-52) U/L Alkaline Phosphatase 69 (38-126) U/L Total Protein 6.9 (6.3-8.2) g/dL Albumin 3.9 (3.5-5.0) g/dL Current Medications Generic Name Dose Route Start Last Admin Trade Name Freq PRN Reason Stop Dose Admin Acetaminophen 650 mg 07/18/17 14:57 Tylenol Tab PO Q6HR PRN Mild Pain or Fever > 100.5 Atorvastatin Calcium 80 mg 07/18/17 21:00 07/18/17 19:53 Lipitor PO 80 mg HS SIMONE Administration Famotidine 20 mg 07/18/17 21:00 07/18/17 22:56 Pepcid PO Not Given BID SIMONE Sodium Chloride 1,000 mls @ 80 mls/hr 07/18/17 15:00 07/18/17 15:26 Saline 0.9% IV 80 mls/hr .[id number] SIMONE Administration Naloxone HCl 0.2 mg 07/18/17 14:57 Narcan IV Q2M PRN Opioid Reversal Sumatriptan Succinate 50 mg 07/18/17 17:12 Imitrex PO DAILY PRN Headache Intake and Output 07/18/17 07/19/17 07/19/17 22:59 06:59 14:59 Intake Total 600 Balance 600 Intake: Oral 600 Other: Voiding Method Toilet Toilet # Voids 1 Weight 95.1 kg 95.1 kg 07/18/17 13:21 07/18/17 13:21 Assessment and Plan Assessment: ASSESSMENT 1. Syncopal episodes lasting 2-3 minutes 2. Palpitations, unknown etiology 3. History of TIA 4. Dyslipidemia, maintained on atorvastatin 5. Former tobacco abuse PLAN Check TSH. Recent carotid doppler from 12/2016 shows no evidence of significant stenosis. Will not repeat. Once neurology has evaluated the patient we will consider possible loop recorder implantation. Plan has been discussed with the patient and she is going to consider this with her family. We will await her decision. This can be performed as an outpatient. She can be discharged from cardiac perspective. Thank you kindly for this consultation. Nurse Practitioner note has been reviewed, I agree with a documented findings and plan of care. Patient was seen and examined.
[2017-07-19] MEDS: FAMOTIDINE 20 MG TAB PO SCH (11:58)
[2017-07-19 16:16] VITALS: BP 122/77; PULSE 98; TEMP 97.8
--- NOTE | 2017-07-19 17:22 | DS ---
DISCHARGE SUMMARY FINAL DIAGNOSES: 1. Syncope and tachycardia, for evaluation. 2. History of cardiac arrhythmia previously. 3. History of fibromyalgia. 4. History of transient ischemic attack. 5. Hyperlipidemia. 6. History of degenerative joint disease. 7. History of seizure disorder. 8. History of migraines. 9. History of cholecystectomy. 10.History of bipolar, depression, posttraumatic stress disorder. 11.History of personality disorder. 12.History of nicotine dependence. 13.History of THC. DISCHARGE DISPOSITION: Patient will be discharged in stable condition with a guarded prognosis. Cardiology cleared the patient for discharge. HISTORY OF PRESENT ILLNESS: This 36-year-old with a past history of multiple medical problems, being followed by Dr. Sayda Prince in the outpatient setting, was admitted with palpitations and syncope. The patient was monitored closely. Sinus rhythm was noted. Cardiology saw the patient and recommended a loop recorder insertion. The patient also had evaluation by Neurology. I had recommend the patient to follow with Neurology earlier. On exam, vital signs are stable. Cardiovascular S1 and S2 muffled. Abdomen soft. DISCHARGE INSTRUCTIONS: 1. Diet is cardiac. 2. Activity limited. FOLLOWUP: 1. Follow up with Dr. Sayda Prince in 2 to 3 days. 2. Follow up with the neurologist as advised. 3. Follow up with cardiology as advised. MEDICATIONS: 1. Lipitor 80 mg at bedtime. 2. EpiPen p.r.n. 3. Pepcid 20 mg p.o. b.i.d. 4. Imitrex 50 mg daily p.r.n. MMODL / IJN: [id number] /
== END 2017-07-19 16:40 | disposition home or self-care (01) ==
LOC: EC 12:27 → 3OBS 14:57
PROVIDERS: ADMIT Internal Medicine; ATTEND Internal Medicine
DX: R55 Syncope and collapse (principal); R00.0 Tachycardia, unspecified; R00.2 Palpitations; I49.9 Cardiac arrhythmia, unspecified; M79.7 Fibromyalgia; Z86.73 Personal history of transient ischemic attack (TIA), and cerebral infarction without residual deficits; E78.5 Hyperlipidemia, unspecified; M19.90 Unspecified osteoarthritis, unspecified site; G40.909 Epilepsy, unspecified, not intractable, without status epilepticus; G43.909 Migraine, unspecified, not intractable, without status migrainosus; Z90.49 Acquired absence of other specified parts of digestive tract; F43.10 Post-traumatic stress disorder, unspecified; F31.9 Bipolar disorder, unspecified; F60.9 Personality disorder, unspecified; Z87.891 Personal history of nicotine dependence; Z90.710 Acquired absence of both cervix and uterus; G62.9 Polyneuropathy, unspecified; R42 Dizziness and giddiness; I25.2 Old myocardial infarction; Z79.899 Other long term (current) drug therapy; Z80.9 Family history of malignant neoplasm, unspecified; R61 Generalized hyperhidrosis; H91.90 Unspecified hearing loss, unspecified ear; Z88.2 Allergy status to sulfonamides; Z88.8 Allergy status to other drugs, medicaments and biological substances; Z88.1 Allergy status to other antibiotic agents; Z91.030 Bee allergy status; Z88.5 Allergy status to narcotic agent; Z91.013 Allergy to seafood
CPT/HCPCS: 99285 ×2; 96360 ×2; 96361 ×3; 36415; 93005; 85379; 80053; 84443; 82550 ×2; 82553 ×2; 84484 ×2; 85025; 81003; 80306; 71046; G0378 ×2

== ENCOUNTER → 2017-07-20 | Day surgery (SDC) | payer OTHER ==
[~2017-07-20] MED LIST changes: +ACETAMINOPHEN TAB 325 MG TAB PO PRN; +CLINDAMYCIN 900 MG in DEXTROSE 5% IN WATER 50 ML IVPB STA; +LIDOCAINE 2% INJ 20 MG/ML SQ ONE; +MIDAZOLAM 2 MG/2 ML VIAL IV ONE; +MIDAZOLAM 2 MG/2 ML VIAL ONE; +fentaNYL (PF) 50 MCG/ML 2 ML AMP IV ONE; +fentaNYL (PF) 50 MCG/ML 2 ML AMP ONE
[2017-07-20 09:26] VITALS: BP 123/75; PULSE 75; RESP 18; TEMP 97.8
--- NOTE | 2017-07-20 10:46 | P.PCN ---
Date of Procedure: 07/20/17 Preoperative Diagnosis: Recurrent unexplained syncope Postoperative Diagnosis: The same Procedure(s) Performed: Insertion of the loop recorder Description of Procedure: This patient is admitted to the hospital with recurrent episodes of syncope and palpitations. Outpatient evaluation with the event monitor was unrevealing. Patient is advised to have insertion of the loop recorder. Patient was brought to the lab in a fasting state. She was prepped and draped in the usual fashion. She was given Versed 3 mg and boluses and also 75 g of fentanyl. Patient is very anxious requiring model support. The skin in the left third intercostal space was infiltrated with lidocaine. An incision was made in the skin. The device is inserted in the usual fashion. The skin is closed with 2 stay sutures. Patient tolerated the procedure well. No immediate complications. Programming: This sensitivity is programmed to 0.035 mV. Af detection is on. The tachycardia detection rate was 194 and Lillian detection rate is 30. Final impression: Successful insertion of loop recorder. No immediate complication.
== END | disposition home or self-care (01) ==
LOC: CATHEP 08:47
PROVIDERS: ATTEND Internal Medicine Cardiovascular Disease
DX: R55 Syncope and collapse (principal); R00.0 Tachycardia, unspecified; E78.5 Hyperlipidemia, unspecified; I25.2 Old myocardial infarction; G40.909 Epilepsy, unspecified, not intractable, without status epilepticus; M79.7 Fibromyalgia; F31.9 Bipolar disorder, unspecified; F60.9 Personality disorder, unspecified; G43.909 Migraine, unspecified, not intractable, without status migrainosus; G62.9 Polyneuropathy, unspecified; M19.90 Unspecified osteoarthritis, unspecified site; H91.90 Unspecified hearing loss, unspecified ear; Z86.73 Personal history of transient ischemic attack (TIA), and cerebral infarction without residual deficits; Z79.899 Other long term (current) drug therapy; Z87.891 Personal history of nicotine dependence; Z88.2 Allergy status to sulfonamides; Z88.1 Allergy status to other antibiotic agents; Z88.3 Allergy status to other anti-infective agents; Z91.030 Bee allergy status; Z88.5 Allergy status to narcotic agent; Z91.013 Allergy to seafood
CPT/HCPCS: 33282; C1764; J2001; J2250; J3010

== ENCOUNTER 2017-08-14 13:08 | Emergency (ER) | payer OTHER ==
[2017-08-14 13:20] VITALS: RESP 18
[2017-08-14] MEDS ORDERED: SODIUM CHLORIDE 0.9% 1,000 ML IV STA (14:02)
[2017-08-14] MEDS ORDERED: ONDANSETRON 4 MG/2 ML VIAL IVP STA (14:02)
--- NOTE | 2017-08-14 14:09 | ED ---
General Adult HPI - General Chief complaint: Arrhythmia/Palpitations Stated complaint: Chest pain,heart racing,has implant Time Seen by Provider: 08/14/17 13:39 Source: patient, RN notes reviewed, old records reviewed Mode of arrival: wheelchair Limitations: no limitations - History of Present Illness Initial comments: This is a 36-year-old female to the ER for evaluation of heart racing, heart beating her chest feeling sore heart beating attack like her heart rate was elevated. Patient's currently wearing loop recorder for evaluation of these complaints. Ongoing issue, she has had prior admissions for similar issue. She denies pain. She is mildly nauseous with no nausea vomiting or diarrhea. - Related Data Home Medications Medication Instructions Recorded Confirmed SUMAtriptan SUCCINATE [Imitrex] 50 mg PO DAILY PRN 09/26/16 08/14/17 Atorvastatin [Lipitor] 80 mg PO HS 07/18/17 08/14/17 EPINEPHrine [Epipen 2-Varun] 0.3 mg IM ONCE PRN 07/18/17 08/14/17 Ergocalciferol (Vitamin D2) 50,000 unit PO Q14D 08/14/17 08/14/17 [Vitamin D2] Allergies Allergy/AdvReac Type Severity Reaction Status Date / Time shellfish derived Allergy Severe tongue Verified 08/14/17 14:04 swells and hives azithromycin [From Zithromax] Allergy Rash/Hives Verified 08/14/17 14:04 ceftriaxone sodium Allergy Rash/Hives Verified 08/14/17 14:04 [From Rocephin] ciprofloxacin [From Cipro] Allergy Rash/Hives Verified 08/14/17 14:04 ciprofloxacin HCl Allergy Rash/Hives Verified 08/14/17 14:04 [From Cipro] citalopram hydrobromide Allergy Rash/Hives Verified 08/14/17 14:04 [From Celexa] escitalopram oxalate Allergy Rash/Hives Verified 08/14/17 14:04 [From Lexapro] Fish Containing Products Allergy Rash/Hives, Verified 08/14/17 14:04 [Fish] tongue swells fosphenytoin sodium Allergy TONGUE Verified 08/14/17 14:04 [From Cerebyx] SWELLING hydrocodone bitartrate Allergy Rash/Hives Verified 08/14/17 14:04 [From Lortab] hydromorphone HCl Allergy Rash/Hives Verified 08/14/17 14:04 [From Dilaudid] lamotrigine [From Lamictal] Allergy Rash/Hives Verified 08/14/17 14:04 levetiracetam [From Keppra] Allergy Rash/Hives Verified 08/14/17 14:04 morphine Allergy Anaphylaxis Verified 08/14/17 14:04 sulfamethoxazole Allergy Rash/Hives Verified 08/14/17 14:04 [From Bactrim] trimethobenzamide HCl Allergy Rash/Hives Verified 08/14/17 14:04 [From Tigan] trimethoprim [From Bactrim] Allergy Rash/Hives Verified 08/14/17 14:04 venom-honey bee Allergy Anaphylaxis Verified 08/14/17 14:04 [bee venom (honey bee)] Review of Systems ROS Statement: Those systems with pertinent positive or pertinent negative responses have been documented in the HPI. ROS Other: All systems not noted in ROS Statement are negative. Past Medical History Past Medical History: CVA/TIA, Fibromyalgia, Hearing Disorder / Deafness, Hyperlipidemia, Myocardial Infarction ([place]), Osteoarthritis ([place]), Seizure Disorder Additional Past Medical History / Comment(s): HX SEIZURES, last one in 2016. Vertigo; MIGRAINES; Peripheral Neuropathy. TACHYCARDIA; TIA X2; MINOR [place] X4. Bipolar, personality disorder Last Myocardial Infarction Date:: 2011 History of Any Multi-Drug Resistant Organisms: None Reported Past Surgical History: Cholecystectomy, Hysterectomy, Tubal Ligation, Uterine Ablation Additional Past Surgical History / Comment(s): EGD, COLONOSCOPY 12/24/14. LAPROSCOPIC REMOVAL OF RIGHT OVARY AND ADHESIONS AT [facility] 12/26/16. IN ER 01/08 FOR ABDOMINAL PAIN AND HAD FALLEN AND HIT HEAD ON [place]- SINCE HAS HAD ISSUES WITH REMEMBERING, hital hernia repair Past Anesthesia/Blood Transfusion Reactions: Previous Problems w/ Anesthesia, Family History of Problems w/ Anesthesia Additional Past Anesthesia/Blood Transfusion Reaction / Comment(s): Woke Up During ORAL Surgery in 2000; FATHER AND SIBLINGS ALSO WOKE DURING SURG. Past Psychological History: Bipolar, Depression, PTSD Smoking Status: Former smoker Past Alcohol Use History: Occasional Past Drug Use History: None Reported - Past Family History Sister(s) Family Medical History: Cancer Mother Family Medical History: Cancer Mother Sister(s) Family Medical History: Cancer General Exam Limitations: no limitations General appearance: alert, in no apparent distress, anxious Head exam: Present: atraumatic, normocephalic, normal inspection Eye exam: Present: normal appearance, PERRL, EOMI. Absent: scleral icterus, conjunctival injection, periorbital swelling ENT exam: Present: normal exam, mucous membranes moist Neck exam: Present: normal inspection. Absent: tenderness, meningismus, lymphadenopathy Respiratory exam: Present: normal lung sounds bilaterally. Absent: respiratory distress, wheezes, rales, rhonchi, stridor Cardiovascular Exam: Present: regular rate, normal rhythm, normal heart sounds. Absent: systolic murmur, diastolic murmur, rubs, gallop, clicks GI/Abdominal exam: Present: soft, normal bowel sounds. Absent: distended, tenderness, guarding, rebound, rigid Extremities exam: Present: normal inspection, full ROM, normal capillary refill. Absent: tenderness, pedal edema, joint swelling, calf tenderness Back exam: Present: normal inspection Neurological exam: Present: alert, oriented X3, CN II-XII intact Psychiatric exam: Present: normal affect, normal mood Skin exam: Present: warm, dry, intact, normal color. Absent: rash Course Vital Signs 08/14/17 08/14/17 08/14/17 13:16 13:33 14:58 Temperature 99.1 F 98.4 F Pulse Rate 101 H 76 Pulse Rate [ 84 Bpm Analyst ] Respiratory 18 18 Rate Blood Pressure 130/63 126/71 O2 Sat by Pulse 100 98 Oximetry - Reevaluation(s) Reevaluation #1: 08/14/17 15:[address] Posada cardiology regarding patient, aware,patient can follow up in office EKG Findings - EKG Comments: EKG Findings:: EKG shows sinus rhythm rate of 77, IA 132, QRS 84, QTC 439 Medical Decision Making - Medical Decision Making 36 female the ER for evaluation palpitations, loop record her, no significant symptoms found here in the ER, because her events requested, no significant events found, patient will follow-up with cardiology - Lab Data Result diagrams: 08/14/17 14:03 08/14/17 13:40 Lab Results 08/14/17 08/14/17 08/14/17 Range/Units 13:40 13:40 14:03 WBC 6.8 (3.8-10.6) k/uL RBC 4.65 (3.80-5.40) m/uL Hgb 13.1 (11.4-16.0) gm/dL Hct 38.9 (34.0-46.0) % MCV 83.7 (80.0-100.0) fL MCH 28.2 (25.0-35.0) pg MCHC 33.6 (31.0-37.0) g/dL RDW 13.4 (11.5-15.5) % Plt Count 203 (150-450) k/uL Neutrophils % 60 % Lymphocytes % 30 % Monocytes % 6 % Eosinophils % 2 % Basophils % 1 % Neutrophils # 4.1 (1.3-7.7) k/uL Lymphocytes # 2.0 (1.0-4.8) k/uL Monocytes # 0.4 (0-1.0) k/uL Eosinophils # 0.1 (0-0.7) k/uL Basophils # 0.1 (0-0.2) k/uL Sodium 141 (137-145) mmol/L Potassium 3.9 (3.5-5.1) mmol/L Chloride 106 (98-107) mmol/L Carbon Dioxide 22 (22-30) mmol/L Anion Gap 13 mmol/L BUN 8 (7-17) mg/dL Creatinine 0.57 (0.52-1.04) mg/dL Est GFR (CKD-EPI)AfAm >90 (>60 ml/min/1.73 sqM) Est GFR (CKD-EPI)NonAf >90 (>60 ml/min/1.73 sqM) Glucose 87 (74-99) mg/dL Calcium 8.6 (8.4-10.2) mg/dL Phosphorus 2.9 (2.5-4.5) mg/dL Magnesium 1.8 (1.6-2.3) mg/dL Total Bilirubin 0.5 (0.2-1.3) mg/dL AST 16 (14-36) U/L ALT 26 (9-52) U/L Alkaline Phosphatase 72 (38-126) U/L Total Creatine Kinase 127 (30-135) U/L CK-MB (CK-2) 0.3 (0.0-2.4) ng/mL CK-MB (CK-2) Rel Index 0.2 Troponin I <0.012 (0.000-0.034) ng/mL Total Protein 6.6 (6.3-8.2) g/dL Albumin 3.7 (3.5-5.0) g/dL TSH 0.881 (0.465-4.680) mIU/L Disposition Clinical Impression: Rapid palpitations, Syncopal episodes Disposition: HOME SELF-CARE Condition: Good Instructions: Palpitations (ED) Referrals: Sayda Prince MD [Primary Care Provider] - 1-2 days
[2017-08-14 14:16] LABS: Basophils # (A) 0.1 k/uL (0-0.2); Basophils % (A) 1 %; Eosinophils # (A) 0.1 k/uL (0-0.7); Eosinophils % (A) 2 %; HCT 38.9 % (34.0-46.0); HGB 13.1 gm/dL (11.4-16.0); Lymphocytes % (A) 30 %; MCH 28.2 pg (25.0-35.0); MCHC 33.6 g/dL (31.0-37.0); MCV 83.7 fL (80.0-100.0); Mean Platelet Volume 9.3; Monocytes # (A) 0.4 k/uL (0-1.0); Monocytes % (A) 6 %; Neutrophils # (A) 4.1 k/uL (1.3-7.7); Neutrophils % (A) 60 %; Platelet Count 203 k/uL (150-450); RBC 4.65 m/uL (3.80-5.40); RDW 13.4 % (11.5-15.5); WBC 6.8 k/uL (3.8-10.6)
[2017-08-14 14:28] LABS: ALT 26 U/L (9-52); AST 16 U/L (14-36); Albumin 3.7 g/dL (3.5-5.0); Alkaline Phosphatase 72 U/L (38-126); Anion Gap 13 mmol/L; Blood Urea Nitrogen 8 mg/dL (7-17); Calcium 8.6 mg/dL (8.4-10.2); Carbon Dioxide 22 mmol/L (22-30); Chloride 106 mmol/L (98-107); Glucose 87 mg/dL (74-99); Magnesium 1.8 mg/dL (1.6-2.3); Phosphorus 2.9 mg/dL (2.5-4.5); Potassium 3.9 mmol/L (3.5-5.1); Sodium 141 mmol/L (137-145); Total Bilirubin 0.5 mg/dL (0.2-1.3); Total Protein 6.6 g/dL (6.3-8.2)
[2017-08-14 14:42] LABS: Creatine Kinase 127 U/L (30-135)
[2017-08-14 14:54] LABS: Creatine Kinase MB 0.3 ng/mL (0.0-2.4); Troponin I <0.012 ng/mL (0.000-0.034)
[2017-08-14 14:59] VITALS: BP 126/71; PULSE 76; TEMP 98.4
== END 2017-08-14 15:50 | disposition home or self-care (01) ==
LOC: EC 13:08
DX: R00.2 Palpitations (principal); R55 Syncope and collapse; R07.9 Chest pain, unspecified; R11.0 Nausea; E78.5 Hyperlipidemia, unspecified; I25.2 Old myocardial infarction; H91.90 Unspecified hearing loss, unspecified ear; Z86.73 Personal history of transient ischemic attack (TIA), and cerebral infarction without residual deficits; Z87.891 Personal history of nicotine dependence; Z98.890 Other specified postprocedural states; Z79.899 Other long term (current) drug therapy; Z88.1 Allergy status to other antibiotic agents; Z88.2 Allergy status to sulfonamides; Z88.5 Allergy status to narcotic agent; Z88.8 Allergy status to other drugs, medicaments and biological substances; Z91.013 Allergy to seafood; Z91.030 Bee allergy status
CPT/HCPCS: 99285; 96374; 96361; 36415; 93005; 80053; 82550; 82553; 83735; 84100; 84443; 84484; 85025; J2405

== ENCOUNTER 2017-08-14 21:56 | Emergency (ER) | payer OTHER ==
[2017-08-14] MEDS ORDERED: NITROGLYCERIN SL TABS 0.4 MG TAB SUBLINGUAL PRN (22:44)
[2017-08-14] MEDS ORDERED: ASPIRIN 325 MG TAB PO STA (22:44)
[2017-08-14 23:12] LABS: Basophils # (A) 0.1 k/uL (0-0.2); Basophils % (A) 1 %; Eosinophils # (A) 0.2 k/uL (0-0.7); Eosinophils % (A) 2 %; Lymphocytes # (A) 2.3 k/uL (1.0-4.8); Lymphocytes % (A) 28 %; MCH 28.6 pg (25.0-35.0); MCHC 34.1 g/dL (31.0-37.0); MCV 83.7 fL (80.0-100.0); Mean Platelet Volume 8.7; Monocytes # (A) 0.4 k/uL (0-1.0); Monocytes % (A) 5 %; Neutrophils # (A) 5.2 k/uL (1.3-7.7); Neutrophils % (A) 62 %; Platelet Count 232 k/uL (150-450); RBC 4.53 m/uL (3.80-5.40); RDW 13.2 % (11.5-15.5); WBC 8.3 k/uL (3.8-10.6)
[2017-08-14 23:21] LABS: Anion Gap 12 mmol/L; Blood Urea Nitrogen 9 mg/dL (7-17); Calcium 8.4 mg/dL (8.4-10.2); Carbon Dioxide 24 mmol/L (22-30); Chloride 110 mmol/L (98-107); Glucose 98 mg/dL (74-99); Partial Thromboplastin Time 23.2 sec (22.0-30.0); Potassium 3.7 mmol/L (3.5-5.1); Prothrombin Time 10.2 sec (9.0-12.0); Sodium 146 mmol/L (137-145)
--- NOTE | 2017-08-14 23:23 | XR ---
EXAMINATION TYPE: XR chest 2V DATE OF EXAM: 08/14/2017 COMPARISON: 07/18/2017 HISTORY: Tachycardia. Chest pain. TECHNIQUE: Frontal and lateral views of the chest are obtained. FINDINGS: Heart and mediastinum are normal. Lungs are clear. Diaphragm is normal. Bony thorax appear s normal. There are chest leads. IMPRESSION: Normal chest. No change.
--- NOTE | 2017-08-15 00:14 | ED ---
Chest Pain HPI - General Chief Complaint: Chest Pain Stated Complaint: CHEST PAIN Time Seen by Provider: 08/14/17 22:03 Source: patient, EMS Mode of arrival: EMS Limitations: no limitations - History of Present Illness Initial Comments: 36-year-old female with significant cardiovascular past medical history presented for evaluation of chest pain. She states she was seen at this facility earlier today when she had tachycardia episodes up to 120 bpm. She had a thorough cardiac workup and was discharged home as she had no further tachycardia or palpitations. She states that she went home and took a nap, when she woke up she had left-sided reproducible chest pain on the sternum and left sided chest. She states that this is not similar to previous cardiac chest pain when she had has her previous MIs. States the pain was nonradiating which was only mildly alleviated with nitro and exacerbated by palpation and movement. There is no associated nausea, vomiting, diaphoresis or epigastric abdominal pain or shortness of breath. - Related Data Home Medications Medication Instructions Recorded Confirmed SUMAtriptan SUCCINATE [Imitrex] 50 mg PO DAILY PRN 09/26/16 08/14/17 Atorvastatin [Lipitor] 80 mg PO HS 07/18/17 08/14/17 EPINEPHrine [Epipen 2-Varun] 0.3 mg IM ONCE PRN 07/18/17 08/14/17 Ergocalciferol (Vitamin D2) 50,000 unit PO Q14D 08/14/17 08/14/17 [Vitamin D2] Allergies Allergy/AdvReac Type Severity Reaction Status Date / Time shellfish derived Allergy Severe tongue Verified 08/14/17 22:15 swells and hives azithromycin [From Zithromax] Allergy Rash/Hives Verified 08/14/17 22:15 ceftriaxone sodium Allergy Rash/Hives Verified 08/14/17 22:15 [From Rocephin] ciprofloxacin [From Cipro] Allergy Rash/Hives Verified 08/14/17 22:15 ciprofloxacin HCl Allergy Rash/Hives Verified 08/14/17 22:15 [From Cipro] citalopram hydrobromide Allergy Rash/Hives Verified 08/14/17 22:15 [From Celexa] escitalopram oxalate Allergy Rash/Hives Verified 08/14/17 22:15 [From Lexapro] Fish Containing Products Allergy Rash/Hives, Verified 08/14/17 22:15 [Fish] tongue swells fosphenytoin sodium Allergy TONGUE Verified 08/14/17 22:15 [From Cerebyx] SWELLING hydrocodone bitartrate Allergy Rash/Hives Verified 08/14/17 22:15 [From Lortab] hydromorphone HCl Allergy Rash/Hives Verified 08/14/17 22:15 [From Dilaudid] lamotrigine [From Lamictal] Allergy Rash/Hives Verified 08/14/17 22:15 levetiracetam [From Keppra] Allergy Rash/Hives Verified 08/14/17 22:15 morphine Allergy Anaphylaxis Verified 08/14/17 22:15 sulfamethoxazole Allergy Rash/Hives Verified 08/14/17 22:15 [From Bactrim] trimethobenzamide HCl Allergy Rash/Hives Verified 08/14/17 22:15 [From Tigan] trimethoprim [From Bactrim] Allergy Rash/Hives Verified 08/14/17 22:15 venom-honey bee Allergy Anaphylaxis Verified 08/14/17 22:15 [bee venom (honey bee)] Review of Systems ROS Statement: Those systems with pertinent positive or pertinent negative responses have been documented in the HPI. ROS Other: All systems not noted in ROS Statement are negative. Constitutional: Denies: fever, chills Eyes: Denies: eye pain, eye discharge, vision change ENT: Denies: ear pain, throat pain Respiratory: Denies: cough, dyspnea Cardiovascular: Reports: chest pain. Denies: palpitations, dyspnea on exertion , orthopnea Endocrine: Denies: fatigue, polydipsia, polyuria Gastrointestinal: Denies: abdominal pain, nausea, vomiting Genitourinary: Denies: urgency, dysuria Musculoskeletal: Denies: back pain, arthralgia, myalgia Skin: Denies: rash, lesions Neurological: Denies: headache, weakness, numbness, paresthesias Psychiatric: Denies: anxiety, depression Hematological/Lymphatic: Denies: easy bleeding, easy bruising EKG Findings - EKG Comments: EKG Findings:: Normal sinus rhythm with a ventricular rate of 88, OH interval 124, QRS 78, QT/QTC 368/445. Past Medical History Past Medical History: CVA/TIA, Fibromyalgia, Hearing Disorder / Deafness, Hyperlipidemia, Myocardial Infarction ([place]), Osteoarthritis (OA), Seizure Disorder Additional Past Medical History / Comment(s): HX SEIZURES, last one in 2017. Vertigo; MIGRAINES; Peripheral Neuropathy. TACHYCARDIA; TIA X2; MINOR [place] X4. Bipolar, personality disorder Last Myocardial Infarction Date:: 2011 History of Any Multi-Drug Resistant Organisms: None Reported Past Surgical History: Cholecystectomy, Hysterectomy, Tubal Ligation, Uterine Ablation Additional Past Surgical History / Comment(s): EGD, COLONOSCOPY 12/24/14. LAPROSCOPIC REMOVAL OF RIGHT OVARY AND ADHESIONS AT [facility] 12/26/16. IN ER 01/08 FOR ABDOMINAL PAIN AND HAD FALLEN AND HIT HEAD ON [place]- SINCE HAS HAD ISSUES WITH REMEMBERING, hital hernia repair Past Anesthesia/Blood Transfusion Reactions: Previous Problems w/ Anesthesia, Family History of Problems w/ Anesthesia Additional Past Anesthesia/Blood Transfusion Reaction / Comment(s): Woke Up During ORAL Surgery in 2000; FATHER AND SIBLINGS ALSO WOKE DURING SURG. Past Psychological History: Bipolar, Depression, PTSD Smoking Status: Former smoker Past Alcohol Use History: Occasional Past Drug Use History: None Reported - Past Family History Sister(s) Family Medical History: Cancer Mother Family Medical History: Cancer Mother Sister(s) Family Medical History: Cancer General Exam Limitations: no limitations General appearance: alert, in no apparent distress Head exam: Present: atraumatic, normocephalic Eye exam: Present: normal appearance, PERRL, EOMI. Absent: scleral icterus, conjunctival injection ENT exam: Present: normal exam, normal oropharynx Neck exam: Present: normal inspection, full ROM. Absent: tenderness, lymphadenopathy Respiratory exam: Present: normal lung sounds bilaterally. Absent: respiratory distress, wheezes, rales, rhonchi, stridor Cardiovascular Exam: Present: regular rate, normal rhythm GI/Abdominal exam: Present: soft. Absent: distended, tenderness, guarding, rebound, rigid Rectal exam: Present: deferred Extremities exam: Present: normal inspection, full ROM Back exam: Present: normal inspection, full ROM Neurological exam: Present: alert, oriented X3 Psychiatric exam: Present: normal affect, normal mood Skin exam: Present: warm, dry, intact Course Vital Signs 08/14/17 08/14/17 22:02 23:06 Temperature 98.1 F Pulse Rate 97 87 Respiratory 20 18 Rate Blood Pressure 105/64 105/55 O2 Sat by Pulse 98 100 Oximetry Chest Pain MDM - MDM 36-year-old female with significant cardiovascular past medical disease presented for evaluation of reproducible left-sided chest pain without radiation that was only mildly improved with nitro and worsened with palpation. On physical examination she does have chest wall tenderness when palpated without any underlying skin abnormalities. Lungs are clear to auscultation bilaterally and she is in normal sinus rhythm on her EKG with a regular rate. Abdomen is soft and nontender without peritoneal signs of guarding, rigidity, or rebound. The remainder of her physical exam is benign. Labs are obtained which showed no significant abnormalities and chest x-ray showed no acute process. The patient was reevaluated and had resolution of all symptoms. Patient was offered admission versus discharge and outpatient follow-up that she has an appointment on Monday with her police aide. Given that her chest pain is noncardiac and she has a heart score of 1 with a risk of major adverse cardiac event at 0.9-1.7% she opted to follow-up as an outpatient. She was given return instructions and advised to make that appointment with her primary care physician and to keep her appointment with her police aide. The patient acknowledged an understanding of all information provided and agreed with this plan of care. Disposition Clinical Impression: Atypical chest pain Disposition: HOME SELF-CARE Condition: Stable Instructions: Chest Pain (ED) Referrals: Sayda Prince MD [Primary Care Provider] - 1-2 days Time of Disposition: 00:14
[2017-08-15 00:25] VITALS: BP 104/64; PULSE 63; RESP 16; TEMP 97.9
== END 2017-08-15 00:25 | disposition home or self-care (01) ==
LOC: EC 21:56
DX: R07.89 Other chest pain (principal); E78.5 Hyperlipidemia, unspecified; I25.2 Old myocardial infarction; M19.90 Unspecified osteoarthritis, unspecified site; Z86.73 Personal history of transient ischemic attack (TIA), and cerebral infarction without residual deficits; Z88.1 Allergy status to other antibiotic agents; Z88.2 Allergy status to sulfonamides; Z88.5 Allergy status to narcotic agent; Z88.8 Allergy status to other drugs, medicaments and biological substances; Z91.013 Allergy to seafood; Z91.030 Bee allergy status; Z79.899 Other long term (current) drug therapy; Z87.891 Personal history of nicotine dependence
CPT/HCPCS: 36415; 71046; 80048; 83880; 84484; 85025; 85610; 85730; 93005; 99285

== ENCOUNTER 2017-08-16 22:39 | Observation (INO) | payer OTHER ==
[2017-08-16] MEDS ORDERED: NITROGLYCERIN OINT 1 INCH/GM PACKET TOPICAL STA (23:27)
[2017-08-16] MEDS ORDERED: SODIUM CHLORIDE 0.9% 1,000 ML IV STA (23:27)
--- NOTE | 2017-08-16 23:37 | ED ---
General Adult HPI - General Chief complaint: Chest Pain Stated complaint: chest pain Time Seen by Provider: 08/16/17 22:42 Source: EMS, RN notes reviewed, old records reviewed Mode of arrival: EMS Limitations: no limitations - History of Present Illness Initial comments: This is a 36-year-old female to the ER for evaluation. Positive palpitations. Positive chest pain, improvement with nitro. Patient has a precordial currently for evaluation of tachycardia bradycardia episodes. States her pulses down in the 130s 140s, she has significant shortness of breath and is events. Patient's very anxious. She denies any new medications denies drug abuse - Related Data Home Medications Medication Instructions Recorded Confirmed SUMAtriptan SUCCINATE [Imitrex] 50 mg PO DAILY PRN 09/26/16 08/16/17 Atorvastatin [Lipitor] 80 mg PO HS 07/18/17 08/16/17 EPINEPHrine [Epipen 2-Varun] 0.3 mg IM ONCE PRN 07/18/17 08/16/17 Ergocalciferol (Vitamin D2) 50,000 unit PO Q14D 08/14/17 08/16/17 [Vitamin D2] Allergies Allergy/AdvReac Type Severity Reaction Status Date / Time shellfish derived Allergy Severe tongue Verified 08/16/17 23:03 swells and hives azithromycin [From Zithromax] Allergy Rash/Hives Verified 08/16/17 23:03 ceftriaxone sodium Allergy Rash/Hives Verified 08/16/17 23:03 [From Rocephin] ciprofloxacin [From Cipro] Allergy Rash/Hives Verified 08/16/17 23:03 ciprofloxacin HCl Allergy Rash/Hives Verified 08/16/17 23:03 [From Cipro] citalopram hydrobromide Allergy Rash/Hives Verified 08/16/17 23:03 [From Celexa] escitalopram oxalate Allergy Rash/Hives Verified 08/16/17 23:03 [From Lexapro] Fish Containing Products Allergy Rash/Hives, Verified 08/16/17 23:03 [Fish] tongue swells fosphenytoin sodium Allergy TONGUE Verified 08/16/17 23:03 [From Cerebyx] SWELLING hydrocodone bitartrate Allergy Rash/Hives Verified 08/16/17 23:03 [From Lortab] hydromorphone HCl Allergy Rash/Hives Verified 08/16/17 23:03 [From Dilaudid] lamotrigine [From Lamictal] Allergy Rash/Hives Verified 08/16/17 23:03 levetiracetam [From Keppra] Allergy Rash/Hives Verified 08/16/17 23:03 morphine Allergy Anaphylaxis Verified 08/16/17 23:03 sulfamethoxazole Allergy Rash/Hives Verified 08/16/17 23:03 [From Bactrim] trimethobenzamide HCl Allergy Rash/Hives Verified 08/16/17 23:03 [From Tigan] trimethoprim [From Bactrim] Allergy Rash/Hives Verified 08/16/17 23:03 venom-honey bee Allergy Anaphylaxis Verified 08/16/17 23:03 [bee venom (honey bee)] Review of Systems ROS Statement: Those systems with pertinent positive or pertinent negative responses have been documented in the HPI. ROS Other: All systems not noted in ROS Statement are negative. Past Medical History Past Medical History: CVA/TIA, Fibromyalgia, Hearing Disorder / Deafness, Hyperlipidemia, Myocardial Infarction ([place]), Osteoarthritis (OA), Seizure Disorder Additional Past Medical History / Comment(s): HX SEIZURES, last one in 2016. Vertigo; MIGRAINES; Peripheral Neuropathy. TACHYCARDIA; TIA X2; MINOR [place] X4. Bipolar, personality disorder Last Myocardial Infarction Date:: 2011 History of Any Multi-Drug Resistant Organisms: None Reported Past Surgical History: Cholecystectomy, Hysterectomy, Tubal Ligation, Uterine Ablation Additional Past Surgical History / Comment(s): EGD, COLONOSCOPY 12/24/14. LAPROSCOPIC REMOVAL OF RIGHT OVARY AND ADHESIONS AT [facility] 12/26/16. IN ER 01/08 FOR ABDOMINAL PAIN AND HAD FALLEN AND HIT HEAD ON [place]- SINCE HAS HAD ISSUES WITH REMEMBERING, hital hernia repair Past Anesthesia/Blood Transfusion Reactions: Previous Problems w/ Anesthesia, Family History of Problems w/ Anesthesia Additional Past Anesthesia/Blood Transfusion Reaction / Comment(s): Woke Up During ORAL Surgery in 2000; FATHER AND SIBLINGS ALSO WOKE DURING SURG. Past Psychological History: Bipolar, Depression, Panic Disorder, PTSD Smoking Status: Former smoker Past Alcohol Use History: Occasional Past Drug Use History: None Reported - Past Family History Sister(s) Family Medical History: Cancer Mother Family Medical History: Cancer Mother Sister(s) Family Medical History: Cancer General Exam Limitations: no limitations General appearance: alert, in no apparent distress Head exam: Present: atraumatic, normocephalic, normal inspection Eye exam: Present: normal appearance, PERRL, EOMI. Absent: scleral icterus, conjunctival injection, periorbital swelling ENT exam: Present: normal exam, mucous membranes moist Neck exam: Present: normal inspection. Absent: tenderness, meningismus, lymphadenopathy Respiratory exam: Present: normal lung sounds bilaterally. Absent: respiratory distress, wheezes, rales, rhonchi, stridor Cardiovascular Exam: Present: regular rate, normal rhythm, normal heart sounds. Absent: systolic murmur, diastolic murmur, rubs, gallop, clicks GI/Abdominal exam: Present: soft, normal bowel sounds. Absent: distended, tenderness, guarding, rebound, rigid Extremities exam: Present: normal inspection, full ROM, normal capillary refill. Absent: tenderness, pedal edema, joint swelling, calf tenderness Back exam: Present: normal inspection Neurological exam: Present: alert, oriented X3, CN II-XII intact Psychiatric exam: Present: normal affect, normal mood Skin exam: Present: warm, dry, intact, normal color. Absent: rash Course Vital Signs 08/16/17 08/16/17 22:48 23:51 Temperature 99.3 F Pulse Rate 83 75 Respiratory 18 18 Rate Blood Pressure 129/75 117/74 O2 Sat by Pulse 98 98 Oximetry - Reevaluation(s) Reevaluation #1: 08/17/17 00:25 asymptomatic EKG Findings - EKG Comments: EKG Findings:: EKG shows normal sinus rhythm rate of 88, TN 132, QRS 76, QTc 435 Medical Decision Making - Medical Decision Making 36 female to the ER for evaluation, positive palpitations with history of syncope positive loop recorder. Patient having chest pain continued palpitations at home today. Comes in by EMS for evaluation. Patient be admitted for cardiac evaluation - Lab Data Result diagrams: 08/16/17 22:56 08/16/17 22:56 Lab Results 08/16/17 08/16/17 08/16/17 Range/Units 22:56 22:56 22:56 WBC 10.6 (3.8-10.6) k/uL RBC 4.61 (3.80-5.40) m/uL Hgb 13.0 (11.4-16.0) gm/dL Hct 39.0 (34.0-46.0) % MCV 84.5 (80.0-100.0) fL MCH 28.2 (25.0-35.0) pg MCHC 33.4 (31.0-37.0) g/dL RDW 13.4 (11.5-15.5) % Plt Count 227 (150-450) k/uL Neutrophils % 67 % Lymphocytes % 26 % Monocytes % 4 % Eosinophils % 2 % Basophils % 0 % Neutrophils # 7.1 (1.3-7.7) k/uL Lymphocytes # 2.8 (1.0-4.8) k/uL Monocytes # 0.4 (0-1.0) k/uL Eosinophils # 0.2 (0-0.7) k/uL Basophils # 0.0 (0-0.2) k/uL PT 10.1 (9.0-12.0) sec INR 1.0 (<1.2) APTT 23.3 (22.0-30.0) sec Sodium 144 (137-145) mmol/L Potassium 3.5 (3.5-5.1) mmol/L Chloride 107 (98-107) mmol/L Carbon Dioxide 24 (22-30) mmol/L Anion Gap 13 mmol/L BUN 9 (7-17) mg/dL Creatinine 0.70 (0.52-1.04) mg/dL Est GFR (CKD-EPI)AfAm >90 (>60 ml/min/1.73 sqM) Est GFR (CKD-EPI)NonAf >90 (>60 ml/min/1.73 sqM) Glucose 94 (74-99) mg/dL Calcium 9.0 (8.4-10.2) mg/dL Magnesium 1.9 (1.6-2.3) mg/dL Total Bilirubin 0.3 (0.2-1.3) mg/dL AST 18 (14-36) U/L ALT 21 (9-52) U/L Alkaline Phosphatase 61 (38-126) U/L Total Protein 6.6 (6.3-8.2) g/dL Albumin 3.8 (3.5-5.0) g/dL Disposition Clinical Impression: Rapid palpitations, Syncopal episodes, Chest pain Disposition: ADMITTED IP TO THIS HOSP Condition: Fair Referrals: Sayda Prince MD [Primary Care Provider] - 1-2 days
[2017-08-16 23:49] LABS: Basophils % (A) 0 %; Eosinophils # (A) 0.2 k/uL (0-0.7); Eosinophils % (A) 2 %; Lymphocytes # (A) 2.8 k/uL (1.0-4.8); Lymphocytes % (A) 26 %; MCH 28.2 pg (25.0-35.0); MCHC 33.4 g/dL (31.0-37.0); MCV 84.5 fL (80.0-100.0); Monocytes # (A) 0.4 k/uL (0-1.0); Monocytes % (A) 4 %; Neutrophils # (A) 7.1 k/uL (1.3-7.7); Neutrophils % (A) 67 %; Platelet Count 227 k/uL (150-450); RBC 4.61 m/uL (3.80-5.40); RDW 13.4 % (11.5-15.5); WBC 10.6 k/uL (3.8-10.6)
[2017-08-17 00:02] LABS: Partial Thromboplastin Time 23.3 sec (22.0-30.0); Prothrombin Time 10.1 sec (9.0-12.0)
[2017-08-17 00:03] LABS: ALT 21 U/L (9-52); AST 18 U/L (14-36); Albumin 3.8 g/dL (3.5-5.0); Anion Gap 13 mmol/L; Blood Urea Nitrogen 9 mg/dL (7-17); Carbon Dioxide 24 mmol/L (22-30); Chloride 107 mmol/L (98-107); Glucose 94 mg/dL (74-99); Magnesium 1.9 mg/dL (1.6-2.3); Potassium 3.5 mmol/L (3.5-5.1); Sodium 144 mmol/L (137-145); Total Bilirubin 0.3 mg/dL (0.2-1.3); Total Protein 6.6 g/dL (6.3-8.2)
[2017-08-17 00:12] LABS: Creatine Kinase 105 U/L (30-135)
[2017-08-17 00:18] LABS: Alkaline Phosphatase 61 U/L (38-126)
[2017-08-17] MEDS ORDERED: NITROGLYCERIN SL TABS 0.4 MG TAB SUBLINGUAL PRN (00:22)
[2017-08-17 00:26] LABS: Creatine Kinase MB <0.2 ng/mL (0.0-2.4); Troponin I <0.012 ng/mL (0.000-0.034)
[2017-08-17 01:34] VITALS: BMI 38.4
[2017-08-17 03:23] VITALS: TEMP 97.9
[2017-08-17] MEDS ORDERED: NADOLOL 20 MG TAB PO SCH (09:00)
--- NOTE | 2017-08-17 10:40 | CONS ---
CONSULTATION A 36-year-old female who came to the emergency room for palpitations and discomfort in the chest and shortness of breath. She states her pulse goes up to 130-140 beats a minute and she becomes short of breath with this. No syncope. REVIEW OF SYSTEMS: No fever, chills, or rigors. No cough or expectoration. MEDICATIONS: Include Imitrex, Lipitor, and vitamin D. ALLERGIES: SHELLFISH. REVIEW OF SYSTEMS: No fever, chills, or rigors. No cough or expectoration. No nausea, vomiting, diarrhea, hematuria or dysuria. No strokes, seizures or skin lesions. No musculoskeletal complaints. PAST HISTORY: Palpitations and she has a loop monitor implanted. SOCIAL HISTORY: She is a former smoker. FAMILY HISTORY: Cancer. PHYSICAL EXAMINATION: She is lying comfortably in bed. Head examination is normal. Heart sounds S1, S2 are normal, no murmurs, no gallop, no rub. Extremities are warm, no edema. IMPRESSION: Recurrent palpitations. EKG shows sinus rhythm without any ST-segment abnormalities. Labs are within normal limits. Cardiac enzymes normal x1. Electrolytes are normal. Suggest a 2D echo and Doppler study and second set of cardiac enzymes. If this is normal, she can follow up with Dr. Posada as an outpatient as before. MMODL / IJN: [id number] /
[2017-08-17] MEDS ORDERED: ONDANSETRON 4 MG/2 ML VIAL IVP PRN (11:50)
[2017-08-17] MEDS ORDERED: SODIUM CHLORIDE 0.9% 1,000 ML IV SCH (13:15)
--- NOTE | 2017-08-17 14:47 | P.HPIM ---
History of Present Illness 36-year-old female came in with comments of palpitations patient's and the history in the past patient did not tolerate metoprolol the past because of which patient was started on oral all patient is now complaining of lightheadedness at this point of time her blood pressure is on the low normal side. Patient does have history of psychiatric issues conversion disorder. Patient the heart rate was checked in EMS and it was around the 1:30 and she was told sinus tachycardia. Patient denied any shortness of breath. Denied any fever chills dysuria. Patient is sinus rhythm since arrival to ER Review of Systems REVIEW OF SYSTEMS: CONSTITUTIONAL: No fever, no malaise, no fatigue. HEENT: No recent visual problems or hearing problems. Denied any sore throat. CARDIOVASCULAR: No chest pain, orthopnea, PND, PULMONARY: No shortness of breath, no cough, no hemoptysis. GASTROINTESTINAL: No diarrhea, no nausea, no vomiting, no abdominal pain. Normoactive bowel sounds. NEUROLOGICAL: No headaches, no weakness, no numbness. HEMATOLOGICAL: Denies any bleeding or petechiae. GENITOURINARY: Denies any burning micturition, frequency, or urgency. MUSCULOSKELETAL/RHEUMATOLOGICAL: Denies any joint pain, swelling, or any muscle pain. ENDOCRINE: Denies any polyuria or polydipsia. The rest of the 14-point review of systems is negative. Past Medical History Past Medical History: CVA/TIA, Fibromyalgia, Hearing Disorder / Deafness, Hyperlipidemia, Myocardial Infarction ([place]), Osteoarthritis (OA), Seizure Disorder Additional Past Medical History / Comment(s): HX SEIZURES, last one in 2016. Vertigo; MIGRAINES; Peripheral Neuropathy. TACHYCARDIA; TIA X2; MINOR [place] X4. Bipolar, personality disorder Last Myocardial Infarction Date:: 2011 History of Any Multi-Drug Resistant Organisms: None Reported Past Surgical History: Cholecystectomy, Hysterectomy, Tubal Ligation, Uterine Ablation Additional Past Surgical History / Comment(s): EGD, COLONOSCOPY 12/24/14. LAPROSCOPIC REMOVAL OF RIGHT OVARY AND ADHESIONS AT [facility] 12/26/16. IN ER 01/08 FOR ABDOMINAL PAIN AND HAD FALLEN AND HIT HEAD ON [place]- SINCE HAS HAD ISSUES WITH REMEMBERING, hital hernia repair Past Anesthesia/Blood Transfusion Reactions: Previous Problems w/ Anesthesia, Family History of Problems w/ Anesthesia Additional Past Anesthesia/Blood Transfusion Reaction / Comment(s): Woke Up During ORAL Surgery in 2000; FATHER AND SIBLINGS ALSO WOKE DURING SURG. Past Psychological History: Bipolar, Depression, Panic Disorder, PTSD Additional Psychological History / Comment(s): Personality disorder Smoking Status: Former smoker Past Alcohol Use History: Occasional Additional Past Alcohol Use History / Comment(s): QUIT 2013, SMOKED FOR 10 YRS, 3PPD/DOWN TO 1 PACK PER WEEK Past Drug Use History: None Reported - Past Family History Sister(s) Family Medical History: Cancer Mother Family Medical History: Cancer Mother Sister(s) Family Medical History: Cancer Medications and Allergies Home Medications Medication Instructions Recorded Confirmed Type SUMAtriptan SUCCINATE [Imitrex] 50 mg PO DAILY PRN 09/26/16 08/16/17 History Atorvastatin [Lipitor] 80 mg PO HS 07/18/17 08/16/17 History EPINEPHrine [Epipen 2-Varun] 0.3 mg IM ONCE PRN 07/18/17 08/16/17 History Ergocalciferol (Vitamin D2) 50,000 unit PO Q14D 08/14/17 08/16/17 History [Vitamin D2] Nadolol [Corgard] 10 mg PO DAILY #30 tab 08/17/17 Rx Allergies Allergy/AdvReac Type Severity Reaction Status Date / Time shellfish derived Allergy Severe tongue Verified 08/16/17 23:03 swells and hives azithromycin [From Zithromax] Allergy Rash/Hives Verified 08/16/17 23:03 ceftriaxone sodium Allergy Rash/Hives Verified 08/16/17 23:03 [From Rocephin] ciprofloxacin [From Cipro] Allergy Rash/Hives Verified 08/16/17 23:03 ciprofloxacin HCl Allergy Rash/Hives Verified 08/16/17 23:03 [From Cipro] citalopram hydrobromide Allergy Rash/Hives Verified 08/16/17 23:03 [From Celexa] escitalopram oxalate Allergy Rash/Hives Verified 08/16/17 23:03 [From Lexapro] Fish Containing Products Allergy Rash/Hives, Verified 08/16/17 23:03 [Fish] tongue swells fosphenytoin sodium Allergy TONGUE Verified 08/16/17 23:03 [From Cerebyx] SWELLING hydrocodone bitartrate Allergy Rash/Hives Verified 08/16/17 23:03 [From Lortab] hydromorphone HCl Allergy Rash/Hives Verified 08/16/17 23:03 [From Dilaudid] lamotrigine [From Lamictal] Allergy Rash/Hives Verified 08/16/17 23:03 levetiracetam [From Keppra] Allergy Rash/Hives Verified 08/16/17 23:03 morphine Allergy Anaphylaxis Verified 08/16/17 23:03 sulfamethoxazole Allergy Rash/Hives Verified 08/16/17 23:03 [From Bactrim] trimethobenzamide HCl Allergy Rash/Hives Verified 08/16/17 23:03 [From Tigan] trimethoprim [From Bactrim] Allergy Rash/Hives Verified 08/16/17 23:03 venom-honey bee Allergy Anaphylaxis Verified 08/16/17 23:03 [bee venom (honey bee)] Physical Exam Vitals: Vital Signs Temp Pulse Pulse Resp BP BP Pulse Ox 08/17/17 12:00 87 16 08/17/17 11:41 87 16 95/60 96 08/17/17 08:00 65 16 98 08/17/17 07:38 97.9 F 65 16 113/75 98 08/17/17 03:23 97.9 F 61 16 94/55 98 08/17/17 02:00 60 16 08/17/17 01:31 98.0 F 75 16 118/70 95 08/17/17 01:04 95 18 133/60 98 08/16/17 23:51 75 18 117/74 98 08/16/17 22:48 99.3 F 83 18 129/75 98 Intake and Output 08/16/17 08/17/17 08/17/17 22:59 06:59 14:59 Other: Voiding Method Toilet # Voids 1 Weight 95.254 kg 95.254 kg PHYSICAL EXAMINATION: GENERAL: The patient is alert and oriented x3, not in any acute distress. Well developed, well nourished. HEENT: Pupils are round and equally reacting to light. EOMI. No scleral icterus. No conjunctival pallor. Normocephalic, atraumatic. No pharyngeal erythema. No thyromegaly. CARDIOVASCULAR: S1 and S2 present. No murmurs, rubs, or gallops. PULMONARY: Chest is clear to auscultation, no wheezing or crackles. ABDOMEN: Soft, nontender, nondistended, normoactive bowel sounds. No palpable organomegaly. MUSCULOSKELETAL: No joint swelling or deformity. EXTREMITIES: No cyanosis, clubbing, or pedal edema. NEUROLOGICAL: Gross neurological examination did not reveal any focal deficits. SKIN: No rashes. Results CBC & Chem 7: 08/16/17 22:56 08/16/17 22:56 Thrombosis Risk Factor Assmnt - Choose All That Apply Each Factor Represents 1 point: Obesity (BMI >25) Thrombosis Risk Factor Assessment Total Risk Factor Score: 1 Thrombosis Risk Factor Assessment Level: Low Risk Assessment and Plan Plan: -Symptomatically sinus tachycardia patient was started on Lomotil all but patient blood pressure has gone on a bit leading to lightheadedness will continue to monitor and if cleared by cardiology patient will be discharged later in the dental and will start her on IV fluids. -Fibromyalgia -Hyperlipidemia -Seizure disorder -History of possible conversion disorder For above-mentioned chronic medical problems patient will be resumed and continued on home medications
--- NOTE | 2017-08-17 14:48 | P.DS ---
Providers Date of admission: 08/17/17 00:22 Attending physician: Livia Franklin Consults: 08/17/17 00:22 Consult Physician Urgent Consulting Provider: Marc Dawn Consult Reason/Comments: papitatiosn Do you want consulting provider notified?: Yes Primary care physician: Sayda Prince [facility] Course: Refer to HPI Patient Condition at Discharge: Fair Plan - Discharge Summary New Discharge Prescriptions: New Nadolol [Corgard] 10 mg PO DAILY #30 tab Continue SUMAtriptan SUCCINATE [Imitrex] 50 mg PO DAILY PRN PRN Reason: Headache EPINEPHrine [Epipen 2-Varun] 0.3 mg IM ONCE PRN PRN Reason: Anaphylaxis Atorvastatin [Lipitor] 80 mg PO HS Ergocalciferol (Vitamin D2) [Vitamin D2] 50,000 unit PO Q14D Discharge Medication List SUMAtriptan SUCCINATE [Imitrex] 50 mg PO DAILY PRN 09/26/16 [History] Atorvastatin [Lipitor] 80 mg PO HS 07/18/17 [History] EPINEPHrine [Epipen 2-Varun] 0.3 mg IM ONCE PRN 07/18/17 [History] Ergocalciferol (Vitamin D2) [Vitamin D2] 50,000 unit PO Q14D 08/14/17 [History] Nadolol [Corgard] 10 mg PO DAILY #30 tab 08/17/17 [Rx] Follow up Appointment(s)/Referral(s): Sayda Prince MD [Primary Care Provider] - 1-2 Days Discharge Disposition: HOME SELF-CARE
[2017-08-17 15:51] VITALS: BP 114/69; PULSE 65; RESP 18
[2017-08-17 16:01] LABS: Creatine Kinase 81 U/L (30-135)
[2017-08-17 16:13] LABS: Creatine Kinase MB <0.2 ng/mL (0.0-2.4); Troponin I <0.012 ng/mL (0.000-0.034)
[2017-08-17] MEDS ORDERED: SUMAtriptan SUCCINATE 50 MG TAB PO PRN (17:08)
--- NOTE | 2017-08-17 18:52 | ECHOF ---
Referral Reason:palpitations MEASUREMENTS -------- HEIGHT: 157.5 cm WEIGHT: 95.3 kg BP: 113/75 IVSd: 0.9 cm (0.6 - 1.1) LVIDd: 4.6 cm (3.9 - 5.3) LVPWd: 1.0 cm (0.6 - 1.1) IVSs: 1.3 cm LVIDs: 3.2 cm LVPWs: 1.1 cm RVIDd: 2.5 cm (< 3.3) LAESV Index (A-L): 26.43 ml/m Ao Diam: 2.8 cm (2.0 - 3.7) LA Diam: 3.6 cm (2.7 - 3.8) AV Cusp: 2.1 cm (1.5 - 2.6) EPSS: 1.2 cm MV E Oscar: 1.14 m/s MV DecT: 182 ms MV A Oscar: 0.48 m/s MV E/A Ratio: 2.37 RAP: 10.00 mmHg RVSP: 32.91 mmHg MV EF SLOPE: 136.77 mm/s (70 - 150) MV EXCURSION: 1.99 cm (> 18.000) FINDINGS -------- Sinus rhythm. This was a technically good study. The left ventricular size is normal. Left ventricular wall thickness is normal. Overall left vent ricular systolic function is normal with, an EF between 55 - 60 %. The right ventricle is normal in size and function. Normal LA size by volume 22+/-6 ml/m2. The right atrium is normal in size. The aortic valve is trileaflet, and appears structurally normal. No aortic stenosis or regurgitation. The mitral valve leaflets are mildly thickened. There is trace to mild mitral regurgitation. Trace tricuspid regurgitation present. Right ventricular systolic pressure is normal at < 35 mmHg. There is no evidence of pulmonary hypertension. The pulmonic valve was not well visualized. The aortic root size is normal. The IVC is dilated with normal collapse. There is no pericardial effusion. CONCLUSIONS -------- 1. Sinus rhythm. 2. This was a technically good study. 3. The left ventricular size is normal. 4. Left ventricular wall thickness is normal. 5. Overall left ventricular systolic function is normal with, an EF between 55 - 60 %. 6. Normal LA size by volume 22+/-6 ml/m2. 7. The aortic valve is trileaflet, and appears structurally normal. No aortic stenosis or regurgitati on. 8. The mitral valve leaflets are mildly thickened. 9. There is trace to mild mitral regurgitation. 10. Trace tricuspid regurgitation present. 11. Right ventricular systolic pressure is normal at < 35 mmHg. 12. There is no evidence of pulmonary hypertension. 13. The pulmonic valve was not well visualized. 14. The aortic root size is normal. 15. The IVC is dilated with normal collapse. 16. There is no pericardial effusion. FIXED INCOME MANAGER: Hansel Holly RDCS
== END 2017-08-17 18:22 | disposition home or self-care (01) ==
LOC: EC 22:39 → 3OBS 08-17 00:22
PROVIDERS: ADMIT Hospitalist; ATTEND Hospitalist
DX: R00.0 Tachycardia, unspecified (principal); R07.9 Chest pain, unspecified; R00.2 Palpitations; R55 Syncope and collapse; R06.02 Shortness of breath; R42 Dizziness and giddiness; M79.7 Fibromyalgia; E78.5 Hyperlipidemia, unspecified; G40.909 Epilepsy, unspecified, not intractable, without status epilepticus; G62.9 Polyneuropathy, unspecified; M19.90 Unspecified osteoarthritis, unspecified site; F31.9 Bipolar disorder, unspecified; F41.0 Panic disorder [episodic paroxysmal anxiety]; F43.10 Post-traumatic stress disorder, unspecified; F60.9 Personality disorder, unspecified; G43.909 Migraine, unspecified, not intractable, without status migrainosus; H91.90 Unspecified hearing loss, unspecified ear; E66.9 Obesity, unspecified; Z68.38 Body mass index [BMI] 38.0-38.9, adult; Z95.818 Presence of other cardiac implants and grafts; Z87.891 Personal history of nicotine dependence; Z79.899 Other long term (current) drug therapy; Z88.1 Allergy status to other antibiotic agents; Z91.030 Bee allergy status; Z88.5 Allergy status to narcotic agent; Z88.2 Allergy status to sulfonamides; Z88.8 Allergy status to other drugs, medicaments and biological substances; Z91.013 Allergy to seafood; Z91.018 Allergy to other foods; I25.2 Old myocardial infarction; Z86.73 Personal history of transient ischemic attack (TIA), and cerebral infarction without residual deficits; Z80.9 Family history of malignant neoplasm, unspecified
CPT/HCPCS: 99285 ×2; 96361 ×5; 96374; 36415; 93005; 93306; 80053; 82550 ×2; 82553 ×2; 83735; 84484 ×2; 85025; 85610; 85730; G0378; J2405

== ENCOUNTER 2017-08-21 23:00 | Emergency (ER) | payer OTHER ==
[2017-08-21 23:08] VITALS: TEMP 99.8
[2017-08-21] MEDS ORDERED: SODIUM CHLORIDE 0.9% 500 ML IV STA (23:43)
--- NOTE | 2017-08-21 23:46 | ED ---
Syncope HPI - General Chief Complaint: Syncope Stated Complaint: fall Time Seen by Provider: 08/21/17 23:23 Source: patient, EMS, RN notes reviewed Mode of arrival: EMS Limitations: no limitations - History of Present Illness Initial Comments: 36-year-old female presents emergency Department chief complaint of syncopal episode. Patient states she was at home states that she had not been feeling well today states she felt that her heart was racing states that she has a history of tachycardia was recently admitted the hospital for an follow-up with Dr. Kalee Schwartz outpatient and felt that there was no acute issues that she did not need to be a medication and they told her they would follow-up within one year. She states that she got up with bathroom states that she felt hot and flushed and passed out. Patient states that her significant other called 911 and she was brought to emergency department. Patient denies any chest pain , shortness breath, headache, dizziness she does complain of some neck discomfort. She did state that she struck her head. Patient denies any back pain, hip pain. - Related Data Home Medications Medication Instructions Recorded Confirmed SUMAtriptan SUCCINATE [Imitrex] 50 mg PO DAILY PRN 09/26/16 08/21/17 Atorvastatin [Lipitor] 80 mg PO HS 07/18/17 08/21/17 EPINEPHrine [Epipen 2-Varun] 0.3 mg IM ONCE PRN 07/18/17 08/21/17 Ergocalciferol (Vitamin D2) 50,000 unit PO Q14D 08/14/17 08/21/17 [Vitamin D2] Allergies Allergy/AdvReac Type Severity Reaction Status Date / Time shellfish derived Allergy Severe tongue Verified 08/21/17 23:38 swells and hives azithromycin [From Zithromax] Allergy Rash/Hives Verified 08/21/17 23:38 ceftriaxone sodium Allergy Rash/Hives Verified 08/21/17 23:38 [From Rocephin] ciprofloxacin [From Cipro] Allergy Rash/Hives Verified 08/21/17 23:38 ciprofloxacin HCl Allergy Rash/Hives Verified 08/21/17 23:38 [From Cipro] citalopram hydrobromide Allergy Rash/Hives Verified 08/21/17 23:38 [From Celexa] escitalopram oxalate Allergy Rash/Hives Verified 08/21/17 23:38 [From Lexapro] Fish Containing Products Allergy Rash/Hives, Verified 08/21/17 23:38 [Fish] tongue swells fosphenytoin sodium Allergy TONGUE Verified 08/21/17 23:38 [From Cerebyx] SWELLING hydrocodone bitartrate Allergy Rash/Hives Verified 08/21/17 23:38 [From Lortab] hydromorphone HCl Allergy Rash/Hives Verified 08/21/17 23:38 [From Dilaudid] lamotrigine [From Lamictal] Allergy Rash/Hives Verified 08/21/17 23:38 levetiracetam [From Keppra] Allergy Rash/Hives Verified 08/21/17 23:38 morphine Allergy Anaphylaxis Verified 08/21/17 23:38 sulfamethoxazole Allergy Rash/Hives Verified 08/21/17 23:38 [From Bactrim] trimethobenzamide HCl Allergy Rash/Hives Verified 08/21/17 23:38 [From Tigan] trimethoprim [From Bactrim] Allergy Rash/Hives Verified 08/21/17 23:38 venom-honey bee Allergy Anaphylaxis Verified 08/21/17 23:38 [bee venom (honey bee)] Review of Systems ROS Statement: Those systems with pertinent positive or pertinent negative responses have been documented in the HPI. ROS Other: All systems not noted in ROS Statement are negative. Past Medical History Past Medical History: CVA/TIA, Fibromyalgia, Hearing Disorder / Deafness, Hyperlipidemia, Myocardial Infarction (OR), Osteoarthritis (OA), Seizure Disorder Additional Past Medical History / Comment(s): HX SEIZURES, last one in 2016. Vertigo; MIGRAINES; Peripheral Neuropathy. TACHYCARDIA; TIA X2; MINOR OR X4. Bipolar, personality disorder Last Myocardial Infarction Date:: 2011 History of Any Multi-Drug Resistant Organisms: None Reported Past Surgical History: Cholecystectomy, Hysterectomy, Tubal Ligation, Uterine Ablation Additional Past Surgical History / Comment(s): EGD, COLONOSCOPY 12/24/14. LAPROSCOPIC REMOVAL OF RIGHT OVARY AND ADHESIONS AT [facility] 12/26/16. IN ER 01/08 FOR ABDOMINAL PAIN AND HAD FALLEN AND HIT HEAD ON [place]- SINCE HAS HAD ISSUES WITH REMEMBERING, hital hernia repair Past Anesthesia/Blood Transfusion Reactions: Previous Problems w/ Anesthesia, Family History of Problems w/ Anesthesia Additional Past Anesthesia/Blood Transfusion Reaction / Comment(s): Woke Up During ORAL Surgery in 2000; FATHER AND SIBLINGS ALSO WOKE DURING SURG. Past Psychological History: Bipolar, Depression, Panic Disorder, PTSD Smoking Status: Former smoker Past Alcohol Use History: Occasional Past Drug Use History: None Reported - Past Family History Sister(s) Family Medical History: Cancer Mother Family Medical History: Cancer Mother Sister(s) Family Medical History: Cancer General Exam Limitations: no limitations General appearance: alert, in no apparent distress Head exam: Present: atraumatic, normocephalic, normal inspection Eye exam: Present: normal appearance, PERRL, EOMI. Absent: scleral icterus, conjunctival injection, periorbital swelling ENT exam: Present: normal exam, normal oropharynx, mucous membranes moist, TM's normal bilaterally Neck exam: Present: normal inspection, tenderness. Absent: meningismus, full ROM (Patient in c-collar), lymphadenopathy Respiratory exam: Present: normal lung sounds bilaterally. Absent: respiratory distress, wheezes, rales, rhonchi, stridor, chest wall tenderness Cardiovascular Exam: Present: regular rate, normal rhythm, normal heart sounds. Absent: systolic murmur, diastolic murmur, rubs, gallop, clicks GI/Abdominal exam: Present: soft, normal bowel sounds. Absent: distended, tenderness, guarding, rebound, rigid Back exam: Present: full ROM. Absent: tenderness Neurological exam: Present: alert, oriented X3, CN II-XII intact, reflexes normal, other (Finger to nose intact bilaterally without over shooting). Absent : motor sensory deficit Skin exam: Present: warm, dry, intact, normal color. Absent: rash Course Vital Signs 08/21/17 08/22/17 23:04 00:12 Temperature 99.8 F H Pulse Rate 90 87 Respiratory 18 18 Rate Blood Pressure 130/72 126/81 O2 Sat by Pulse 98 98 Oximetry EKG Findings - EKG Comments: EKG Findings:: EKF at 23:12 NSR rate 94, pr 142 QRS 78, QT/PYK544/437 Medical Decision Making - Medical Decision Making 32-year-old female presented for syncopal episode. This most likely related to vasovagal syncope. Patient felt hot flushness happened right when she stood up going to the bathroom. Patient's residence stable CT is negative. Patient had a cardiac workup. Patient be discharged return parameters were discussed. - Lab Data Result diagrams: 08/22/17 00:11 08/22/17 00:11 Lab Results 08/22/17 08/22/17 08/22/17 Range/Units 00:11 00:11 00:11 WBC 11.4 H (3.8-10.6) k/uL RBC 5.03 (3.80-5.40) m/uL Hgb 14.0 (11.4-16.0) gm/dL Hct 42.4 (34.0-46.0) % MCV 84.3 (80.0-100.0) fL MCH 27.9 (25.0-35.0) pg MCHC 33.1 (31.0-37.0) g/dL RDW 13.6 (11.5-15.5) % Plt Count 226 (150-450) k/uL Neutrophils % 73 % Lymphocytes % 21 % Monocytes % 5 % Eosinophils % 1 % Basophils % 1 % Neutrophils # 8.3 H (1.3-7.7) k/uL Lymphocytes # 2.4 (1.0-4.8) k/uL Monocytes # 0.5 (0-1.0) k/uL Eosinophils # 0.1 (0-0.7) k/uL Basophils # 0.1 (0-0.2) k/uL Sodium 143 (137-145) mmol/L Potassium 4.0 (3.5-5.1) mmol/L Chloride 105 (98-107) mmol/L Carbon Dioxide 23 (22-30) mmol/L Anion Gap 15 mmol/L BUN 8 (7-17) mg/dL Creatinine 0.50 L (0.52-1.04) mg/dL Est GFR (CKD-EPI)AfAm >90 (>60 ml/min/1.73 sqM) Est GFR (CKD-EPI)NonAf >90 (>60 ml/min/1.73 sqM) Glucose 82 (74-99) mg/dL Calcium 9.2 (8.4-10.2) mg/dL Total Bilirubin 0.9 (0.2-1.3) mg/dL AST 19 (14-36) U/L ALT 20 (9-52) U/L Alkaline Phosphatase 73 (38-126) U/L Troponin I <0.012 (0.000-0.034) ng/mL Total Protein 7.3 (6.3-8.2) g/dL Albumin 4.1 (3.5-5.0) g/dL Disposition Clinical Impression: Vasovagal syncope, Neck pain Disposition: HOME SELF-CARE Condition: Stable Instructions: Syncope (ED) Additional Instructions: Please return to the Emergency Department if symptoms worsen or any other concerns. Referrals: Sayda Prince MD [Primary Care Provider] - 1-2 days Time of Disposition: 01:38
[2017-08-22 00:32] LABS: Basophils # (A) 0.1 k/uL (0-0.2); Basophils % (A) 1 %; Eosinophils # (A) 0.1 k/uL (0-0.7); Eosinophils % (A) 1 %; HCT 42.4 % (34.0-46.0); Lymphocytes # (A) 2.4 k/uL (1.0-4.8); Lymphocytes % (A) 21 %; MCH 27.9 pg (25.0-35.0); MCHC 33.1 g/dL (31.0-37.0); MCV 84.3 fL (80.0-100.0); Mean Platelet Volume 9.4; Monocytes # (A) 0.5 k/uL (0-1.0); Monocytes % (A) 5 %; Neutrophils # (A) 8.3 k/uL (1.3-7.7); Neutrophils % (A) 73 %; Platelet Count 226 k/uL (150-450); RBC 5.03 m/uL (3.80-5.40); RDW 13.6 % (11.5-15.5); WBC 11.4 k/uL (3.8-10.6)
[2017-08-22 00:44] LABS: ALT 20 U/L (9-52); AST 19 U/L (14-36); Albumin 4.1 g/dL (3.5-5.0); Alkaline Phosphatase 73 U/L (38-126); Anion Gap 15 mmol/L; Blood Urea Nitrogen 8 mg/dL (7-17); Calcium 9.2 mg/dL (8.4-10.2); Carbon Dioxide 23 mmol/L (22-30); Chloride 105 mmol/L (98-107); Glucose 82 mg/dL (74-99); Sodium 143 mmol/L (137-145); Total Bilirubin 0.9 mg/dL (0.2-1.3); Total Protein 7.3 g/dL (6.3-8.2)
--- NOTE | 2017-08-22 00:53 | CT ---
EXAMINATION TYPE: CT brain yarieline wo con DATE OF EXAM: 08/22/2017 COMPARISON: 01/11/2017. HISTORY: syncope with LOC CT DLP: 1745.60 mGycm Automated exposure control for dose reduction was used. TECHNIQUE: CT scan of the head and cervical spine are performed without contrast. FINDINGS: Ventricles and sulci appear normal. There is no mass effect nor midline shift. There is n o sign of intracranial hemorrhage. The calvarium is intact. The cervical vertebra have fairly normal spacing and alignment. Posterior elements are intact. Skull base is intact. There is no sign of a fracture. Conclusion Negative CT scan of the brain. No change compared to old exam. Negative CT scan of the cervical spine.
[2017-08-22 01:52] VITALS: BP 115/76; PULSE 82; RESP 16
== END 2017-08-22 01:52 | disposition home or self-care (01) ==
LOC: EC 23:00
DX: R55 Syncope and collapse (principal); M54.2 Cervicalgia; E78.5 Hyperlipidemia, unspecified; Z87.891 Personal history of nicotine dependence; Z88.1 Allergy status to other antibiotic agents; Z88.5 Allergy status to narcotic agent; Z88.8 Allergy status to other drugs, medicaments and biological substances; Z91.013 Allergy to seafood; Z91.030 Bee allergy status; Z79.899 Other long term (current) drug therapy; W19.XXXA Unspecified fall, initial encounter; Y92.002 Bathroom of unspecified non-institutional (private) residence as the place of occurrence of the external cause
CPT/HCPCS: 36415; 70450; 72125; 80053; 84484; 85025; 93005; 96360; 96361; 99285

== ENCOUNTER 2017-12-17 23:04 | Emergency (ER) | payer OTHER ==
[2017-12-17] MEDS ORDERED: IBUPROFEN 400 MG TAB PO STA (23:19)
[2017-12-17] MEDS ORDERED: ACETAMINOPHEN TAB 325 MG TAB PO STA (23:19)
--- NOTE | 2017-12-17 23:22 | ED ---
Upper Extremity HPI - General Chief Complaint: Extremity Injury, Upper Stated Complaint: fall Time Seen by Provider: 12/17/17 23:10 Source: patient Mode of arrival: ambulatory Limitations: no limitations - History of Present Illness Initial Comments: 's patient is a 37-year-old woman who fell approximately an hour ago, she tripped and landed with her elbow stopping her fall. She indicates pain to the right olecranon area. She denies other injuries in the fall. No previous injury. Patient MD Complaint: Injury to:: right, elbow Onset/Timin -: hour(s) Other Extremity Injury: Elbow: Right Other Injuries: none Handedness: right Place: home Improves With: none Worsens With: movement of extremity Context: fall, direct blow Associated Symptoms: denies other symptoms Treatments Prior to Arrival: cold therapy - Related Data Home Medications Medication Instructions Recorded Confirmed SUMAtriptan SUCCINATE [Imitrex] 50 mg PO DAILY PRN 09/26/16 08/21/17 Atorvastatin [Lipitor] 80 mg PO HS 07/18/17 08/21/17 EPINEPHrine [Epipen 2-Varun] 0.3 mg IM ONCE PRN 07/18/17 08/21/17 Ergocalciferol (Vitamin D2) 50,000 unit PO Q14D 08/14/17 08/21/17 [Vitamin D2] Previous Rx's Medication Instructions Recorded Ibuprofen [Motrin] 600 mg PO Q8HR PRN #20 tab 12/18/17 Allergies Allergy/AdvReac Type Severity Reaction Status Date / Time shellfish derived Allergy Severe tongue Verified 12/17/17 23:07 swells and hives azithromycin [From Zithromax] Allergy Rash/Hives Verified 12/17/17 23:07 ceftriaxone sodium Allergy Rash/Hives Verified 12/17/17 23:07 [From Rocephin] ciprofloxacin [From Cipro] Allergy Rash/Hives Verified 12/17/17 23:07 ciprofloxacin HCl Allergy Rash/Hives Verified 12/17/17 23:07 [From Cipro] citalopram hydrobromide Allergy Rash/Hives Verified 12/17/17 23:07 [From Celexa] escitalopram oxalate Allergy Rash/Hives Verified 12/17/17 23:07 [From Lexapro] Fish Containing Products Allergy Rash/Hives, Verified 12/17/17 23:07 [Fish] tongue swells fosphenytoin sodium Allergy TONGUE Verified 12/17/17 23:07 [From Cerebyx] SWELLING hydrocodone bitartrate Allergy Rash/Hives Verified 12/17/17 23:07 [From Lortab] hydromorphone HCl Allergy Rash/Hives Verified 12/17/17 23:07 [From Dilaudid] lamotrigine [From Lamictal] Allergy Rash/Hives Verified 12/17/17 23:07 levetiracetam [From Keppra] Allergy Rash/Hives Verified 12/17/17 23:07 morphine Allergy Anaphylaxis Verified 12/17/17 23:07 sulfamethoxazole Allergy Rash/Hives Verified 12/17/17 23:07 [From Bactrim] trimethobenzamide HCl Allergy Rash/Hives Verified 12/17/17 23:07 [From Tigan] trimethoprim [From Bactrim] Allergy Rash/Hives Verified 12/17/17 23:07 venom-honey bee Allergy Anaphylaxis Verified 12/17/17 23:07 [bee venom (honey bee)] Review of Systems ROS Statement: Those systems with pertinent positive or pertinent negative responses have been documented in the HPI. ROS Other: All systems not noted in ROS Statement are negative. Constitutional: Denies: weakness Musculoskeletal: Reports: as per HPI, arthralgia. Denies: back pain Neurological: Denies: headache, weakness, numbness Past Medical History Past Medical History: CVA/TIA, Fibromyalgia, Hearing Disorder / Deafness, Hyperlipidemia, Myocardial Infarction (ND), Osteoarthritis (OA), Seizure Disorder Additional Past Medical History / Comment(s): HX SEIZURES, last one in 2016. Vertigo; MIGRAINES; Peripheral Neuropathy. TACHYCARDIA; TIA X2; MINOR [place] X4. Bipolar, personality disorder Last Myocardial Infarction Date:: 2011 History of Any Multi-Drug Resistant Organisms: None Reported Past Surgical History: Cholecystectomy, Hysterectomy, Tubal Ligation, Uterine Ablation Additional Past Surgical History / Comment(s): EGD, COLONOSCOPY 12/24/14. LAPROSCOPIC REMOVAL OF RIGHT OVARY AND ADHESIONS AT [facility] 12/26/16. IN ER 01/08 FOR ABDOMINAL PAIN AND HAD FALLEN AND HIT HEAD ON [place]- SINCE HAS HAD ISSUES WITH REMEMBERING, hital hernia repair Past Anesthesia/Blood Transfusion Reactions: Previous Problems w/ Anesthesia, Family History of Problems w/ Anesthesia Additional Past Anesthesia/Blood Transfusion Reaction / Comment(s): Woke Up During ORAL Surgery in 2000; FATHER AND SIBLINGS ALSO WOKE DURING SURG. Past Psychological History: Bipolar, Depression, Panic Disorder, PTSD Smoking Status: Former smoker Past Alcohol Use History: Occasional Past Drug Use History: None Reported - Past Family History Sister(s) Family Medical History: Cancer Mother Family Medical History: Cancer Mother Sister(s) Family Medical History: Cancer General Exam Limitations: no limitations General appearance: alert, in no apparent distress Cardiovascular Exam: Present: other (Radial pulses strong and symmetric) Extremities exam: Present: tenderness (At right olecranon), other (Mild soft tissue swelling or right olecranon no palpable deformity). Absent: full ROM ( Range of motion limited by pain.) Back exam: Absent: vertebral tenderness Neurological exam: Absent: motor sensory deficit (Through right upper extremity) Skin exam: Present: warm, dry, intact, normal color. Absent: rash Course Vital Signs 12/17/17 23:06 Temperature 98.8 F Pulse Rate 117 H Respiratory 18 Rate Blood Pressure 143/82 O2 Sat by Pulse 95 Oximetry Disposition Clinical Impression: Elbow contusion Disposition: HOME SELF-CARE Condition: Good Instructions: Contusion in Adults (ED) Prescriptions: Ibuprofen [Motrin] 600 mg PO Q8HR PRN #20 tab PRN Reason: Pain Is patient prescribed a controlled substance at d/c from ED?: No Referrals: Sayda Prince MD [Primary Care Provider] - 1-2 days
--- NOTE | 2017-12-18 00:01 | XR ---
EXAMINATION TYPE: XR elbow complete RT DATE OF EXAM: 12/17/2017 COMPARISON: NONE HISTORY: Elbow pain TECHNIQUE: 3 views FINDINGS: I see no fracture nor dislocation. Joint spaces are normal. There is no sign of elbow joint effusion. IMPRESSION: Negative right elbow exam.
[2017-12-18 00:29] VITALS: BP 123/71; PULSE 89; RESP 17; TEMP 98.2
== END 2017-12-18 00:29 | disposition home or self-care (01) ==
LOC: EC 23:04
DX: S50.01XA Contusion of right elbow, initial encounter (principal); E78.5 Hyperlipidemia, unspecified; G43.909 Migraine, unspecified, not intractable, without status migrainosus; Z86.73 Personal history of transient ischemic attack (TIA), and cerebral infarction without residual deficits; Z87.891 Personal history of nicotine dependence; Z79.899 Other long term (current) drug therapy; Z91.013 Allergy to seafood; Z88.1 Allergy status to other antibiotic agents; Z88.5 Allergy status to narcotic agent; Z88.2 Allergy status to sulfonamides; Z88.8 Allergy status to other drugs, medicaments and biological substances; Z91.030 Bee allergy status; W01.10XA Fall on same level from slipping, tripping and stumbling with subsequent striking against unspecified object, initial encounter
CPT/HCPCS: 99283

== ENCOUNTER → 2017-12-25 | Outpatient (CLI) | payer OTHER ==
--- NOTE | 2017-12-26 10:32 | USB ---
History: Family history of breast cancer in maternal aunt at age 40, breast cancer in maternal aunt at age 50, and breast cancer in maternal cousin at age 30. Physical Findings: Nurse Summary: 1 cm lump right breast 1 o'clock. US Breast RT Technologist: Isa Golden, RT (R)(M) Right complete breast ultrasound includes all four quadrants, the retroareolar region and axilla. Finding demonstrates No suspicioud sonographic findings. No solid or cystic lesions seen. These results were verbally communicated with the patient and result sheet given to the patient on 12/25/17. ASSESSMENT: Incomplete: need additional imaging evaluation, BI-RAD 0 RECOMMENDATION: Follow-up diagnostic mammogram of both breasts.
== END | disposition home or self-care (01) ==
LOC: RADUSWWP 10:13
PROVIDERS: ATTEND Family Medicine
DX: N64.4 Mastodynia (principal)

== ENCOUNTER → 2018-01-10 | Outpatient (CLI) | payer OTHER ==
--- NOTE | 2018-01-10 10:48 | MM ---
Reason for exam: clinical finding. Baseline mammogram. History: Family history of breast cancer in maternal aunt at age 40, breast cancer in maternal aunt at age 50, and breast cancer in maternal cousin at age 30. Took hormonal contraceptives beginning at age 18. Indicated problem(s): pain in the right breast. Physical Findings: Breast exam performed on 12/25/17. MG Diagnostic Mammo w CAD TERRY Bilateral CC and MLO view(s) were taken. There are scattered fibroglandular densities. There is no discrete abnormality. Electronic device left MLO. These results were verbally communicated with the patient and result sheet given to the patient on 01/10/18. ASSESSMENT: Negative, BI-RAD 1 RECOMMENDATION: Routine screening mammogram of both breasts in 2 years. (2-5 years)
== END | disposition home or self-care (01) ==
LOC: RADMAMWWP 06:55
PROVIDERS: ATTEND Family Medicine
DX: R92.8 Other abnormal and inconclusive findings on diagnostic imaging of breast (principal)
CPT/HCPCS: 77066

== ENCOUNTER → 2018-02-15 | Outpatient (CLI) | payer OTHER ==
--- NOTE | 2018-02-15 09:52 | XR ---
EXAMINATION TYPE: XR chest 2V DATE OF EXAM: 02/15/2018 COMPARISON: 08/14/2017 INDICATION: None recurrent maxillary sinusitis, productive cough TECHNIQUE: Frontal and lateral views of the chest are obtained. FINDINGS: The heart size is normal. The pulmonary vasculature is normal. The lungs are clear. Electronic device overlies left chest IMPRESSION: 1. No acute pulmonary process.
== END ==
LOC: RADXRMAIN 09:08
PROVIDERS: ATTEND Family Medicine
DX: J01.00 Acute maxillary sinusitis, unspecified (principal); R05 Cough
CPT/HCPCS: 71046

== ENCOUNTER 2018-08-07 15:59 | Emergency (ER) | payer OTHER ==
[2018-08-07 16:18] VITALS: PULSE 110; RESP 18
[2018-08-07] MEDS ORDERED: methylPREDNISolone SOD SUCCI 125 MG/2 ML VIAL IV STA (16:21)
--- NOTE | 2018-08-07 16:27 | ED ---
General Adult HPI - General Chief complaint: Allergic Reaction Stated complaint: Allergic reaction Time Seen by Provider: 08/07/18 16:07 Source: patient, EMS, RN notes reviewed Mode of arrival: EMS Limitations: no limitations - History of Present Illness Initial comments: Patient is a pleasant 37-year-old female presenting to the emergency department with concern for ALLERGIC reaction. Patient was at [facility] eating onion rings. Apparently on the rings were also cooked insane oil as shellfish. Patient does have a ALLERGY to shellfish. Patient started having difficulty in breathing and throat swelling. Patient was Monday evening. EMS arrived and gave patient epi as well as Benadryl. Patient states symptoms have improved and are now minimal. Patient only feels like her throat is scratchy. No dyspnea at this time. No rash. - Related Data Home Medications Medication Instructions Recorded Confirmed Atorvastatin [Lipitor] 80 mg PO HS 07/18/17 08/07/18 EPINEPHrine [Epipen 2-Varun] 0.3 mg IM ONCE PRN 07/18/17 08/07/18 Ergocalciferol (Vitamin D2) 50,000 unit PO MO 08/14/17 08/07/18 [Vitamin D2] Nitroglycerin Sl Tabs [Nitrostat] 0.4 mg SUBLINGUAL Q5M PRN 08/07/18 08/07/18 Previous Rx's Medication Instructions Recorded predniSONE 20 mg PO BID #10 tab 08/07/18 Allergies Allergy/AdvReac Type Severity Reaction Status Date / Time shellfish derived Allergy Severe tongue Verified 08/07/18 16:26 swells and hives azithromycin [From Zithromax] Allergy Rash/Hives Verified 08/07/18 16:26 ceftriaxone sodium Allergy Rash/Hives Verified 08/07/18 16:26 [From Rocephin] ciprofloxacin [From Cipro] Allergy Rash/Hives Verified 08/07/18 16:26 ciprofloxacin HCl Allergy Rash/Hives Verified 08/07/18 16:26 [From Cipro] citalopram hydrobromide Allergy Rash/Hives Verified 08/07/18 16:26 [From Celexa] escitalopram oxalate Allergy Rash/Hives Verified 08/07/18 16:26 [From Lexapro] Fish Containing Products Allergy Rash/Hives, Verified 08/07/18 16:26 [Fish] tongue swells fosphenytoin sodium Allergy TONGUE Verified 08/07/18 16:26 [From Cerebyx] SWELLING hydrocodone bitartrate Allergy Rash/Hives Verified 08/07/18 16:26 [From Lortab] hydromorphone HCl Allergy Rash/Hives Verified 08/07/18 16:26 [From Dilaudid] lamotrigine [From Lamictal] Allergy Rash/Hives Verified 08/07/18 16:26 levetiracetam [From Keppra] Allergy Rash/Hives Verified 08/07/18 16:26 morphine Allergy Anaphylaxis Verified 08/07/18 16:26 sulfamethoxazole Allergy Rash/Hives Verified 08/07/18 16:26 [From Bactrim] trimethobenzamide HCl Allergy Rash/Hives Verified 08/07/18 16:26 [From Tigan] trimethoprim [From Bactrim] Allergy Rash/Hives Verified 08/07/18 16:26 venom-honey bee Allergy Anaphylaxis Verified 08/07/18 16:26 [bee venom (honey bee)] Review of Systems ROS Statement: Those systems with pertinent positive or pertinent negative responses have been documented in the HPI. ROS Other: All systems not noted in ROS Statement are negative. Constitutional: Denies: fever Eyes: Denies: eye pain ENT: Denies: ear pain Respiratory: Reports: as per HPI Cardiovascular: Denies: chest pain Endocrine: Denies: fatigue Gastrointestinal: Denies: abdominal pain Genitourinary: Denies: dysuria Musculoskeletal: Denies: back pain Skin: Denies: rash Neurological: Denies: headache Past Medical History Past Medical History: CVA/TIA, Fibromyalgia, Hearing Disorder / Deafness, Hyperlipidemia, Myocardial Infarction ([place]), Osteoarthritis (OA), Seizure Disorder Additional Past Medical History / Comment(s): HX SEIZURES, last one in 2017. Vertigo; MIGRAINES; Peripheral Neuropathy. TACHYCARDIA; TIA X2; MINOR [place] X4. Bipolar, personality disorder Last Myocardial Infarction Date:: 2011 History of Any Multi-Drug Resistant Organisms: None Reported Past Surgical History: Cholecystectomy, Hysterectomy, Tubal Ligation, Uterine Ablation Additional Past Surgical History / Comment(s): EGD, COLONOSCOPY 12/24/14. LAPROSCOPIC REMOVAL OF RIGHT OVARY AND ADHESIONS AT [facility] 12/26/16. IN ER 01/08 FOR ABDOMINAL PAIN AND HAD FALLEN AND HIT HEAD ON [place]- SINCE HAS HAD ISSUES WITH REMEMBERING, hital hernia repair Past Anesthesia/Blood Transfusion Reactions: Previous Problems w/ Anesthesia, Family History of Problems w/ Anesthesia Additional Past Anesthesia/Blood Transfusion Reaction / Comment(s): Woke Up During ORAL Surgery in 2000; FATHER AND SIBLINGS ALSO WOKE DURING SURG. Past Psychological History: Bipolar, Depression, Panic Disorder, PTSD Smoking Status: Former smoker Past Alcohol Use History: Occasional Past Drug Use History: None Reported - Past Family History Sister(s) Family Medical History: Cancer Mother Family Medical History: Cancer Mother Sister(s) Family Medical History: Cancer General Exam Limitations: no limitations General appearance: alert, in no apparent distress Head exam: Present: atraumatic Eye exam: Present: normal appearance, PERRL ENT exam: Present: other (Minimal edema of the uvula) Neck exam: Present: normal inspection Respiratory exam: Present: normal lung sounds bilaterally. Absent: respiratory distress, wheezes Cardiovascular Exam: Present: regular rate, normal rhythm GI/Abdominal exam: Present: soft. Absent: tenderness Extremities exam: Present: normal inspection. Absent: pedal edema, calf tenderness Neurological exam: Present: alert Psychiatric exam: Present: normal affect, normal mood Skin exam: Present: other (Mild erythema with central pallor left forearm were patient states of the injection was received.) Course Vital Signs 08/07/18 16:11 Temperature 98.9 F Pulse Rate 110 H Respiratory 18 Rate Blood Pressure 112/63 O2 Sat by Pulse 94 L Oximetry Medical Decision Making - Medical Decision Making Patient reevaluated and further improved. Patient states she is near normal at this time and is comfortable with discharge home. Patient updated on need for close follow-up. Disposition Clinical Impression: Allergic reaction Disposition: HOME SELF-CARE Condition: Stable Instructions (If sedation given, give patient instructions): Anaphylaxis (ED), Allergies (ED) Additional Instructions: Please follow-up to primary care physician in the next day or 2 for recheck. Return for difficulty breathing, swelling, rash, worsening or changing symptoms or other concerns. [id number] Benadryl for the next 5 days, 25-50 mg every 6 hours. Prescriptions: predniSONE 20 mg PO BID #10 tab Is patient prescribed a controlled substance at d/c from ED?: No Referrals: Sayda Prince MD [Primary Care Provider] - 1-2 days Time of Disposition: 17:08
[2018-08-07 17:23] VITALS: BP 109/61; TEMP 98.5
== END 2018-08-07 17:23 | disposition home or self-care (01) ==
LOC: EC 15:59
DX: T78.1XXA Other adverse food reactions, not elsewhere classified, initial encounter (principal); E78.5 Hyperlipidemia, unspecified; I25.2 Old myocardial infarction; Z79.899 Other long term (current) drug therapy; Z91.013 Allergy to seafood; Z88.1 Allergy status to other antibiotic agents; Z88.8 Allergy status to other drugs, medicaments and biological substances; Z88.5 Allergy status to narcotic agent; Z88.2 Allergy status to sulfonamides; Z91.030 Bee allergy status; Z87.891 Personal history of nicotine dependence; Z86.73 Personal history of transient ischemic attack (TIA), and cerebral infarction without residual deficits
CPT/HCPCS: 99283; 96374; J2930

== ENCOUNTER 2019-06-13 12:01 | Emergency (ER) | payer OTHER ==
[2019-06-13] MEDS ORDERED: KETOROLAC 30 MG/ML 1 ML VIAL IM STA (12:36)
[2019-06-13 12:59] LABS: Appearance,Urine Cloudy (Clear); Bilirubin,Urine Negative (Negative); Blood,Urine Negative (Negative); Color,Urine Yellow; Glucose,Urine (UA) Negative (Negative); Hyaline Casts,Urine 1 /lpf (0-2); Ketones,Urine Negative (Negative); Leukocyte Esterase,Urine Negative (Negative); Mucus,Urine Many /hpf; Nitrite,Urine Negative (Negative); PH, Urine 5.5 (5.0-8.0); Protein,Urine Trace (Negative); Specific Gravity,Urine 1.023 (1.001-1.035); Squamous Epithelial Cell,Urine 5 /hpf (0-4); Urobilinogen,Urine <2.0 mg/dL (<2.0); WBC,Urine 4 /hpf (0-5)
--- NOTE | 2019-06-13 13:25 | ED ---
General Adult HPI - General Chief complaint: Skin/Abscess/Foreign Body Stated complaint: cyst Time Seen by Provider: 06/13/19 12:10 Source: patient Mode of arrival: ambulatory Limitations: no limitations - History of Present Illness Initial comments: Patient is 38-year-old female presenting to the emergency department with a chief complaint of vaginal pain. Patient reports she has developed cyst in the left side of her vagina over the last week. Patient does report pain with walking. Patient also reports pain with sitting or when the area is rubbed. Patient denies any vaginal discharge or any urinary symptoms. Patient states the cyst is located on the superior, lateral aspect of the left labia majora. Patient does report previous ingrown hairs in the same region and states this one does feel somewhat like that. Denies any night sweats or chills. - Related Data Home Medications Medication Instructions Recorded Confirmed Atorvastatin [Lipitor] 80 mg PO HS 07/18/17 08/07/18 EPINEPHrine [Epipen 2-Varun] 0.3 mg IM ONCE PRN 07/18/17 08/07/18 Ergocalciferol (Vitamin D2) 50,000 unit PO MO 08/14/17 08/07/18 [Vitamin D2] Nitroglycerin Sl Tabs [Nitrostat] 0.4 mg SUBLINGUAL Q5M PRN 08/07/18 08/07/18 Previous Rx's Medication Instructions Recorded predniSONE [Deltasone] 20 mg PO BID #10 tab 08/07/18 Allergies Allergy/AdvReac Type Severity Reaction Status Date / Time shellfish derived Allergy Severe tongue Verified 06/13/19 12:05 swells and hives azithromycin [From Zithromax] Allergy Rash/Hives Verified 06/13/19 12:05 ceftriaxone sodium Allergy Rash/Hives Verified 06/13/19 12:05 [From Rocephin] ciprofloxacin [From Cipro] Allergy Rash/Hives Verified 06/13/19 12:05 ciprofloxacin HCl Allergy Rash/Hives Verified 06/13/19 12:05 [From Cipro] citalopram hydrobromide Allergy Rash/Hives Verified 06/13/19 12:05 [From Celexa] escitalopram oxalate Allergy Rash/Hives Verified 06/13/19 12:05 [From Lexapro] Fish Containing Products Allergy Rash/Hives, Verified 06/13/19 12:05 [Fish] tongue swells fosphenytoin sodium Allergy TONGUE Verified 06/13/19 12:05 [From Cerebyx] SWELLING hydrocodone bitartrate Allergy Rash/Hives Verified 06/13/19 12:05 [From Lortab] hydromorphone HCl Allergy Rash/Hives Verified 06/13/19 12:05 [From Dilaudid] lamotrigine [From Lamictal] Allergy Rash/Hives Verified 06/13/19 12:05 levetiracetam [From Keppra] Allergy Rash/Hives Verified 06/13/19 12:05 morphine Allergy Anaphylaxis Verified 06/13/19 12:05 sulfamethoxazole Allergy Rash/Hives Verified 06/13/19 12:05 [From Bactrim] trimethobenzamide HCl Allergy Rash/Hives Verified 06/13/19 12:05 [From Tigan] trimethoprim [From Bactrim] Allergy Rash/Hives Verified 06/13/19 12:05 venom-honey bee Allergy Anaphylaxis Verified 06/13/19 12:05 [bee venom (honey bee)] Review of Systems ROS Statement: Those systems with pertinent positive or pertinent negative responses have been documented in the HPI. ROS Other: All systems not noted in ROS Statement are negative. Past Medical History Past Medical History: CVA/TIA, Fibromyalgia, Hearing Disorder / Deafness, Hyperlipidemia, Myocardial Infarction ([place]), Osteoarthritis ([place]), Seizure Disorder Additional Past Medical History / Comment(s): HX SEIZURES, last one in 2016. Vertigo; MIGRAINES; Peripheral Neuropathy. TACHYCARDIA; TIA X2; MINOR [place] X4. Bipolar, personality disorder Last Myocardial Infarction Date:: 2011 History of Any Multi-Drug Resistant Organisms: None Reported Past Surgical History: Cholecystectomy, Hysterectomy, Tubal Ligation, Uterine Ablation Additional Past Surgical History / Comment(s): EGD, COLONOSCOPY 12/24/14. LAPROSCOPIC REMOVAL OF RIGHT OVARY AND ADHESIONS AT [facility] 12/26/16. IN ER 01/08 FOR ABDOMINAL PAIN AND HAD FALLEN AND HIT HEAD ON [place]- SINCE HAS HAD ISSUES WITH REMEMBERING, hital hernia repair Past Anesthesia/Blood Transfusion Reactions: Previous Problems w/ Anesthesia, Family History of Problems w/ Anesthesia Additional Past Anesthesia/Blood Transfusion Reaction / Comment(s): Woke Up During ORAL Surgery in 2000; FATHER AND SIBLINGS ALSO WOKE DURING SURG. Past Psychological History: Bipolar, Depression, Panic Disorder, PTSD Smoking Status: Former smoker Past Alcohol Use History: Occasional Past Drug Use History: None Reported - Past Family History Sister(s) Family Medical History: Cancer Mother Family Medical History: Cancer Mother Sister(s) Family Medical History: Cancer General Exam Limitations: no limitations General appearance: alert, in no apparent distress Head exam: Present: atraumatic, normocephalic, normal inspection Eye exam: Present: normal appearance, PERRL Pupils: Present: normal accommodation ENT exam: Present: normal exam, mucous membranes moist Neck exam: Present: normal inspection, full ROM Respiratory exam: Present: normal lung sounds bilaterally Cardiovascular Exam: Present: regular rate, normal rhythm, normal heart sounds External exam: Absent: normal external exam (Subcutaneous cyst measuring approximately 1 cm 1 cm, slightly erythematous but no drainage located on the superior, lateral aspect of the left labia majora.) Extremities exam: Present: normal inspection, full ROM Back exam: Present: normal inspection, full ROM Neurological exam: Present: alert, oriented X3 Psychiatric exam: Present: normal affect, normal mood Skin exam: Present: warm, dry, intact, normal color Course Vital Signs 06/13/19 12:03 Temperature 98.3 F Pulse Rate 113 H Respiratory 22 Rate Blood Pressure 125/80 O2 Sat by Pulse 99 Oximetry Medical Decision Making - Medical Decision Making Patient is 38-year-old female presenting to the emergency department with chief complaint of vaginal pain. On exam patient does appear to have a cyst in the left labia majora. No drainage. Measures approximately 1 cm x 1 cm. I suspect this is not a Bartholin cyst/abscess. Patient will be considering the patient has a long list of ALLERGIES, she will not be prescribed anything. Patient advised to use sitz baths. She was given Toradol in the ED for symptomatically. She was advised to follow up with a dairy associate. Strict return parameters were thoroughly discussed the patient was understanding and agreeable. Case discussed with physician. - Lab Data Lab Results 06/13/19 Range/Units 12:47 Urine Color Yellow Urine Appearance Cloudy H (Clear) Urine pH 5.5 (5.0-8.0) Ur Specific [place] 1.023 (1.001-1.035) Urine Protein Trace H (Negative) Urine Glucose (UA) Negative (Negative) Urine Ketones Negative (Negative) Urine Blood Negative (Negative) Urine Nitrite Negative (Negative) Urine Bilirubin Negative (Negative) Urine Urobilinogen <2.0 (<2.0) mg/dL Ur Leukocyte Esterase Negative (Negative) Urine WBC 4 (0-5) /hpf Ur Squamous Epith Cells 5 H (0-4) /hpf Hyaline Casts 1 (0-2) /lpf Urine Mucus Many H (None) /hpf Disposition Clinical Impression: Vaginal cyst Disposition: HOME SELF-CARE Condition: Stable Instructions (If sedation given, give patient instructions): Epidermal Inclusion Cysts (ED) Additional Instructions: Please follow up with an [facility] CONSULTANT. Return to emergency department if symptoms worsen. Use sitz baths. Is patient prescribed a controlled substance at d/c from ED?: No Referrals: Sayda Prince MD [Primary Care Provider] - 1-2 days Gaye Myers DO [Doctor of Osteopathic Medicine] - 1-2 days Time of Disposition: 13:25
[2019-06-13 13:43] VITALS: BP 114/79; PULSE 95; RESP 18; TEMP 98.2
== END 2019-06-13 13:43 | disposition home or self-care (01) ==
LOC: EC 12:01
DX: N89.8 Other specified noninflammatory disorders of vagina (principal); E78.5 Hyperlipidemia, unspecified; I25.2 Old myocardial infarction; Z79.899 Other long term (current) drug therapy; Z91.013 Allergy to seafood; Z88.1 Allergy status to other antibiotic agents; Z88.8 Allergy status to other drugs, medicaments and biological substances; Z88.5 Allergy status to narcotic agent; Z88.2 Allergy status to sulfonamides; Z91.030 Bee allergy status; Z86.73 Personal history of transient ischemic attack (TIA), and cerebral infarction without residual deficits; Z87.891 Personal history of nicotine dependence
CPT/HCPCS: 81001; 99283; 96372; J1885

== ENCOUNTER 2019-07-03 13:21 | Emergency (ER) | payer OTHER ==
[2019-07-03 13:30] VITALS: TEMP 98.1
[2019-07-03 14:01] LABS: Basophils # (A) 0.1 k/uL (0-0.2); Basophils % (A) 1 %; Eosinophils # (A) 0.2 k/uL (0-0.7); Eosinophils % (A) 2 %; HGB 14.6 gm/dL (11.4-16.0); Lymphocytes # (A) 2.2 k/uL (1.0-4.8); Lymphocytes % (A) 18 %; MCH 28.3 pg (25.0-35.0); MCHC 33.1 g/dL (31.0-37.0); MCV 85.7 fL (80.0-100.0); Mean Platelet Volume 9.5; Monocytes # (A) 0.4 k/uL (0-1.0); Monocytes % (A) 3 %; Neutrophils # (A) 9.1 k/uL (1.3-7.7); Neutrophils % (A) 75 %; Platelet Count 245 k/uL (150-450); RBC 5.14 m/uL (3.80-5.40); RDW 13.3 % (11.5-15.5); WBC 12.1 k/uL (3.8-10.6)
[2019-07-03 14:06] LABS: INR 0.9 (<1.2); Partial Thromboplastin Time 23.5 sec (22.0-30.0); Prothrombin Time 9.8 sec (9.0-12.0)
[2019-07-03 14:13] LABS: ALT 14 U/L (4-34); AST 19 U/L (14-36); African American GFR (CKD) >90 (>60 ml/min/1.73 sqM); Albumin 4.4 g/dL (3.5-5.0); Alkaline Phosphatase 77 U/L (38-126); Anion Gap 11 mmol/L; Blood Urea Nitrogen 7 mg/dL (7-17); Calcium 9.3 mg/dL (8.4-10.2); Carbon Dioxide 23 mmol/L (22-30); Chloride 104 mmol/L (98-107); Glucose 95 mg/dL (74-99); Magnesium 1.8 mg/dL (1.6-2.3); Non-African American GFR(CKD) >90 (>60 ml/min/1.73 sqM); Potassium 4.1 mmol/L (3.5-5.1); Sodium 138 mmol/L (137-145); Total Bilirubin 0.5 mg/dL (0.2-1.3); Total Protein 7.8 g/dL (6.3-8.2)
[2019-07-03] MEDS ORDERED: NITROGLYCERIN SL TABS 0.4 MG TAB SUBLINGUAL STA (14:14)
[2019-07-03] MEDS ORDERED: LORazepam 2 MG/ML INJ IV STA (14:15)
--- NOTE | 2019-07-03 14:23 | ED ---
Chest Pain HPI - General Chief Complaint: Chest Pain Stated Complaint: chest pain Time Seen by Provider: 07/03/19 13:57 Source: patient, RN notes reviewed, old records reviewed Mode of arrival: wheelchair Limitations: no limitations - History of Present Illness Initial Comments: Patient is a 38-year-old female presents emergency department today with onset of chest pain starting this morning. She reports that she was going to take her daughter to an urgent care and started to develop a crushing chest pain feeling like a beam is going to her chest towards her back and right left shoulder blade. Patient states that she's had some associated shortness of breath. Patient states she has significant cardiac history with previous MIs as well as a loop recorder. Her world language teacher is in [facility] and his glass silverer Delia. Patient states that she has had no recent fevers or chills. She denies any sore throat or coughing. - Related Data Home Medications Medication Instructions Recorded Confirmed EPINEPHrine [Epipen 2-Varun] 0.3 mg IM ONCE PRN 07/18/17 07/03/19 Nitroglycerin Sl Tabs [Nitrostat] 0.4 mg SUBLINGUAL Q5M PRN 08/07/18 07/03/19 Levocetirizine Dihydrochloride 5 mg PO DAILY 07/03/19 07/03/19 [Xyzal] Allergies Allergy/AdvReac Type Severity Reaction Status Date / Time shellfish derived Allergy Severe tongue Verified 07/03/19 14:51 swells and hives azithromycin [From Zithromax] Allergy Rash/Hives Verified 07/03/19 14:51 ceftriaxone sodium Allergy Rash/Hives Verified 07/03/19 14:51 [From Rocephin] ciprofloxacin [From Cipro] Allergy Rash/Hives Verified 07/03/19 14:51 ciprofloxacin HCl Allergy Rash/Hives Verified 07/03/19 14:51 [From Cipro] citalopram hydrobromide Allergy Rash/Hives Verified 07/03/19 14:51 [From Celexa] egg Allergy Unknown Verified 07/03/19 14:53 escitalopram oxalate Allergy Rash/Hives Verified 07/03/19 14:51 [From Lexapro] Fish Containing Products Allergy Rash/Hives, Verified 07/03/19 14:51 [Fish] tongue swells fosphenytoin sodium Allergy TONGUE Verified 07/03/19 14:51 [From Cerebyx] SWELLING hydrocodone bitartrate Allergy Rash/Hives Verified 07/03/19 14:51 [From Lortab] hydromorphone HCl Allergy Rash/Hives Verified 07/03/19 14:51 [From Dilaudid] lamotrigine [From Lamictal] Allergy Rash/Hives Verified 07/03/19 14:51 levetiracetam [From Keppra] Allergy Rash/Hives Verified 07/03/19 14:51 milk Allergy Unknown Verified 07/03/19 14:53 morphine Allergy Anaphylaxis Verified 07/03/19 14:51 peanut Allergy Unknown Verified 07/03/19 14:53 sulfamethoxazole Allergy Rash/Hives Verified 07/03/19 14:51 [From Bactrim] trimethobenzamide HCl Allergy Rash/Hives Verified 07/03/19 14:51 [From Tigan] trimethoprim [From Bactrim] Allergy Rash/Hives Verified 07/03/19 14:51 venom-honey bee Allergy Anaphylaxis Verified 07/03/19 14:51 [bee venom (honey bee)] Review of Systems ROS Statement: Those systems with pertinent positive or pertinent negative responses have been documented in the HPI. ROS Other: All systems not noted in ROS Statement are negative. EKG Findings - EKG Comments: EKG Findings:: EKG performed at 1336 shows sinus tachycardia otherwise normal EKG. Ventricular rate of 108 beats were minute. Verbal is 1:30 milliseconds. QRS duration is 80 ms. QT QTc is 338/452 ms. No evidence of ST elevation or T- wave inversions. Past Medical History Past Medical History: CVA/TIA, Fibromyalgia, Hearing Disorder / Deafness, Hyperlipidemia, Myocardial Infarction ([place]), Osteoarthritis ([place]), Seizure Disorder Additional Past Medical History / Comment(s): HX SEIZURES, last one in 2017. Vertigo; MIGRAINES; Peripheral Neuropathy. TACHYCARDIA; TIA X2; MINOR [place] X4. Bipolar, personality disorder Last Myocardial Infarction Date:: 2011 History of Any Multi-Drug Resistant Organisms: None Reported Past Surgical History: Cholecystectomy, Hysterectomy, Tubal Ligation, Uterine Ablation Additional Past Surgical History / Comment(s): EGD, COLONOSCOPY 12/24/14. LAPROSCOPIC REMOVAL OF RIGHT OVARY AND ADHESIONS AT [facility] 12/26/16. IN ER 01/08 FOR ABDOMINAL PAIN AND HAD FALLEN AND HIT HEAD ON [place]- SINCE HAS HAD ISSUES WITH REMEMBERING, hital hernia repair Past Anesthesia/Blood Transfusion Reactions: Previous Problems w/ Anesthesia, Family History of Problems w/ Anesthesia Additional Past Anesthesia/Blood Transfusion Reaction / Comment(s): Woke Up During ORAL Surgery in 2000; FATHER AND SIBLINGS ALSO WOKE DURING SURG. Past Psychological History: Bipolar, Depression, Panic Disorder, PTSD Smoking Status: Former smoker Past Alcohol Use History: Occasional Past Drug Use History: None Reported - Past Family History Sister(s) Family Medical History: Cancer Mother Family Medical History: Cancer Mother Sister(s) Family Medical History: Cancer General Exam - General Exam Comments Initial Comments: Patient is an anxious appearing 38-year-old female. Alert and oriented 3. Patient appears in no significant distress. Limitations: no limitations Head exam: Present: atraumatic, normocephalic, normal inspection Eye exam: Present: normal appearance, PERRL, EOMI. Absent: scleral icterus, conjunctival injection, periorbital swelling ENT exam: Present: normal exam, mucous membranes moist Neck exam: Present: normal inspection. Absent: tenderness, meningismus, lymphadenopathy Respiratory exam: Present: normal lung sounds bilaterally. Absent: respiratory distress, wheezes, rales, rhonchi, stridor Cardiovascular Exam: Present: regular rate, normal rhythm, normal heart sounds. Absent: systolic murmur, diastolic murmur, rubs, gallop, clicks GI/Abdominal exam: Present: soft, normal bowel sounds. Absent: distended, tenderness, guarding, rebound, rigid Extremities exam: Present: normal inspection Back exam: Present: normal inspection Neurological exam: Present: alert, oriented X3, CN II-XII intact Psychiatric exam: Present: normal affect, normal mood Skin exam: Present: warm, dry, intact, normal color. Absent: rash Course Vital Signs 07/03/19 13:27 Temperature 98.1 F Pulse Rate 107 H Respiratory 24 Rate Blood Pressure 129/87 O2 Sat by Pulse 99 Oximetry Chest Pain MDM - MDM 38-year-old female presents from his primary quite anxious Any chest pain. Patient was given Ativan. On reevaluation she is resting comfortably in bed states her symptoms have improved. EKG showed no acute changes. She had negative troponin 2. Labs are otherwise unremarkable. Chest x-ray is normal. This patient's symptoms most likely related to anxiety. Patient needs follow-up with her primary care doctor and cardiology. Patient is agreeable to treatment plan will comply. Return parameters were discussed. Disposition Clinical Impression: Anxiety, Chest pain Disposition: HOME SELF-CARE Condition: Good Instructions (If sedation given, give patient instructions): Chest Pain (ED) Additional Instructions: Patient advised to follow-up with primary care doctor. Return to the ED if any alarming signs or symptoms occur. Is patient prescribed a controlled substance at d/c from ED?: No Referrals: Sayda Prince MD [Primary Care Provider] - 1-2 days Time of Disposition: 17:49
--- NOTE | 2019-07-03 14:49 | XR ---
EXAMINATION TYPE: XR chest 2V DATE OF EXAM: 07/03/2019 COMPARISON: 02/15/2018 INDICATION: Cough and back pain TECHNIQUE: Frontal and lateral views of the chest are obtained. FINDINGS: The heart size is normal. The pulmonary vasculature is normal. The lungs are clear. IMPRESSION: 1. No acute pulmonary process.
[2019-07-03] MEDS ORDERED: SODIUM CHLORIDE 0.9% 1,000 ML IV ONE (14:52)
[2019-07-03 18:02] VITALS: BP 122/78; PULSE 88; RESP 18
== END 2019-07-03 17:54 | disposition home or self-care (01) ==
LOC: EC 13:21
DX: F41.9 Anxiety disorder, unspecified (principal); R07.9 Chest pain, unspecified; I25.2 Old myocardial infarction; Z91.013 Allergy to seafood; Z88.1 Allergy status to other antibiotic agents; Z91.012 Allergy to eggs; Z88.8 Allergy status to other drugs, medicaments and biological substances; Z88.5 Allergy status to narcotic agent; Z91.011 Allergy to milk products; Z91.010 Allergy to peanuts; Z88.2 Allergy status to sulfonamides; Z91.030 Bee allergy status; Z86.73 Personal history of transient ischemic attack (TIA), and cerebral infarction without residual deficits; Z87.891 Personal history of nicotine dependence
CPT/HCPCS: 36415; 93005; 85379; 80053; 83735; 84484; 85025; 85610; 85730; 71046; 99285; 96374; 96361; J2060

== ENCOUNTER → 2020-03-04 | Outpatient (CLI) | payer OTHER ==
--- NOTE | 2020-03-04 13:42 | CT ---
EXAMINATION TYPE: CT abdomen pelvis w con DATE OF EXAM: 03/04/2020 COMPARISON: CT 08/15/2016 HISTORY: Abdominal and pelvic pain CT DLP: 1613 mGycm Automated exposure control for dose reduction was used. TECHNIQUE: Helical acquisition of images from the lung bases through the pelvis have been completed. CONTRAST: Performed without Oral Contrast and with IV Contrast, patient injected with 100 mL of Isovue 300. FINDINGS: Surgical clips are noted at the gastroesophageal junction patient is likely status post Nis sen fundoplication, correlate LUNG BASES: No significant abnormality is appreciated. AORTA: No significant abnormality is appreciated. LIVER/GB: Liver is enlarged and shows low-attenuation. Gallbladder is surgically absent.. PANCREAS: No significant abnormality is seen. SPLEEN: No significant abnormality is seen. ADRENALS: No significant abnormality is seen. KIDNEYS: No significant abnormality is seen. REPRODUCTIVE ORGANS: Uterus is absent and adnexal structures show normal-appearing ovary on the left, right ovary not seen BOWEL: No significant abnormality is seen. Bases not seen with certainty. FREE AIR: No Free Air visible. ASCITES: None visible. PELVIC ADENOPATHY: None visualized. RETROPERITONEAL ADENOPATHY: No Retroperitoneal Adenopathy visible. URINARY BLADDER: No significant abnormality is seen. OSSEOUS STRUCTURES: No significant abnormality is seen. IMPRESSION: HEPATOMEGALY, CORRELATE FOR HEPATIC STEATOSIS. POSTOP CHANGES.
== END | disposition home or self-care (01) ==
LOC: RADCTMAIN 12:36
PROVIDERS: ATTEND Family Medicine
DX: R16.0 Hepatomegaly, not elsewhere classified (principal); Z98.890 Other specified postprocedural states; Z87.440 Personal history of urinary (tract) infections
CPT/HCPCS: 74177; Q9967

== ENCOUNTER 2020-06-11 08:48 | Day surgery (SDC) | payer OTHER ==
[2020-06-09 12:11] VITALS: BMI 6017.7
[~2020-06-11 08:48] MED LIST changes: -ACETAMINOPHEN TAB 325 MG TAB PO PRN; -CLINDAMYCIN 900 MG in DEXTROSE 5% IN WATER 50 ML IVPB STA; +LACTATED RINGERS 1,000 ML IV SCH; -LIDOCAINE 2% INJ 20 MG/ML SQ ONE; -MIDAZOLAM 2 MG/2 ML VIAL IV ONE; -MIDAZOLAM 2 MG/2 ML VIAL ONE; -SODIUM CHLORIDE 0.9% 1,000 ML IV SCH; -fentaNYL (PF) 50 MCG/ML 2 ML AMP IV ONE; -fentaNYL (PF) 50 MCG/ML 2 ML AMP ONE
[2020-06-11 09:26] VITALS: TEMP 98.3
[2020-06-11] MEDS ORDERED: LIDOCAINE 1% (10MG/ML) FOR IV START INTRADERMA ONE (09:35)
[2020-06-11] MEDS ORDERED: PROPOFOL 10 MG/ML 20 ML VIAL IV ONE (10:11)
[2020-06-11] MEDS ORDERED: LIDOCAINE 1% INJ 10MG/ML (20 ML MDV) ONE (10:11)
--- NOTE | 2020-06-11 10:48 | P.PCN ---
Date of Procedure: 06/11/20 Description of Procedure: Brief history: Patient is a pleasant 39-year-old female presenting for EGD and colonoscopy for evaluation of GERD, abdominal pain, change in bowel habits and diarrhea. She reports frequent episodes of reflux. Prior Al fundoplication. She also reports frequent loose bowel movements which she feels started after cholecystectomy. She experiences bright and lasts lower quadrant abdominal pain which is present for approximately one year. Procedure performed: Esophagogastroduodenoscopy with biopsy Colonoscopy with biopsy Estimated blood loss: Minimal. Preoperative diagnosis: GERD, abdominal pain, diarrhea, change in bowel [place] [facility] [place] After informed consent was obtained from the patient was brought into the endoscopy unit and IV sedation was administered by anesthesia under continuous monitoring. Initially upper endoscopy was done. The Olympus GF 190 video endoscope was inserted into the mouth and esophagus intubated without any difficulty and was gradually advanced into the stomach and duodenum and carefully examined. The bulb and second part of the duodenum appeared normal, with biopsies taken to rule out celiac sprue. The scope was then withdrawn into the stomach adequately insufflated with air and upon careful examination the antrum and body, cardia and fundus appeared normal, except for some mild erythema in the antrum and body suggestive of mild gastritis biopsy. On retroflexion there was evidence of patient's prior Al fundoplication. The scope was then withdrawn into the esophagus. The GE junction was located at 36 cm to the incisors, with biopsies taken. It appeared regular with no erythema erosions or ulcerations. Rest of the esophagus appeared normal. Patient tolerated the procedure well. At this time the patient continued to remain sedation. Initial digital rectal examination was normal. Olympus CF 190 video colonoscope was then inserted into the rectum and gradually advanced to the cecum without any difficulty. Careful examination was performed as the scope was gradually being withdrawn. The prep was fair with semisolid stool noted throughout the entire colon. The cecum, ascending colon, transverse colon, descending colon, sigmoid colon and rectum appeared which was visualized and appeared normal with random biopsies taken of the right colon, left colon and a normal-appearing terminal ileum. Retroflexion was performed in the rectum and no lesions were noted, low-grade internal hemorrhoids. Patient tolerated the procedure well. Impression: 1. Mild gastritis. Al fundoplication. Biopsies of the duodenum, antrum body and GE junction. 2. Fair prep. Otherwise normal-appearing colon from rectum to cecum with normal-appearing terminal ileum and random biopsies taken of the right colon, left colon and terminal ileum. Recommendations: Findings of this examination were discussed with the patient as well as her family. Okay to resume diet. Okay to resume medications. Await pathology from biopsies. Follow up in GI clinic as scheduled. Continue current medical regimen. Can consider the addition of cholestyramine for bile salt diarrhea.
[2020-06-11 11:00] VITALS: BP 113/80; PULSE 88; RESP 17
== END 2020-06-11 11:27 | disposition home or self-care (01) ==
LOC: ORWHC2ENDO 08:48
PROVIDERS: ATTEND Internal Medicine
DX: K52.9 Noninfective gastroenteritis and colitis, unspecified (principal); K63.89 Other specified diseases of intestine; K64.8 Other hemorrhoids; K29.70 Gastritis, unspecified, without bleeding; K21.00 Gastro-esophageal reflux disease with esophagitis, without bleeding; K08.89 Other specified disorders of teeth and supporting structures; I25.10 Atherosclerotic heart disease of native coronary artery without angina pectoris; E78.5 Hyperlipidemia, unspecified; R00.0 Tachycardia, unspecified; R42 Dizziness and giddiness; H91.90 Unspecified hearing loss, unspecified ear; M79.7 Fibromyalgia; G62.9 Polyneuropathy, unspecified; Z87.891 Personal history of nicotine dependence; Z79.899 Other long term (current) drug therapy; Z98.890 Other specified postprocedural states; Z90.49 Acquired absence of other specified parts of digestive tract; Z90.710 Acquired absence of both cervix and uterus; Z98.51 Tubal ligation status; Z88.5 Allergy status to narcotic agent; Z88.2 Allergy status to sulfonamides; Z91.013 Allergy to seafood; Z88.1 Allergy status to other antibiotic agents; Z88.8 Allergy status to other drugs, medicaments and biological substances; Z91.011 Allergy to milk products; Z86.69 Personal history of other diseases of the nervous system and sense organs; Z86.73 Personal history of transient ischemic attack (TIA), and cerebral infarction without residual deficits
CPT/HCPCS: 88305; 45380; 43239; J2001; J2704

== ENCOUNTER 2020-06-12 19:28 | Emergency (ER) | payer OTHER ==
[2020-06-12 19:39] VITALS: TEMP 98.8
[2020-06-12] MEDS ORDERED: SODIUM CHLORIDE 0.9% 1,000 ML IV STA (19:49)
[2020-06-12] MEDS ORDERED: ONDANSETRON 4 MG/2 ML VIAL IVP STA (19:49)
[2020-06-12] MEDS ORDERED: KETOROLAC 15 MG/ML 1 ML VIAL IVP STA (19:50)
--- NOTE | 2020-06-12 20:04 | ED ---
Abdominal Pain HPI - General Chief Complaint: Abdominal Pain Stated Complaint: Post Op Abd Pain Time Seen by Provider: 06/12/20 19:41 Source: patient Mode of arrival: ambulatory Limitations: no limitations - History of Present Illness Initial Comments: 39-year-old female patient presents to the emergency department today for evaluation of upper abdominal pain. Patient states she's had the pain since yesterday after having an EGD and colonoscopy. Patient states the pain seems to be worsening. States she is very nauseated. Has not vomited but has also had Al Fundoplication in the past and generally does not vomit. He denies any fever or chills. States she has had bowel movement has been passing gas. She did contact her physician Dr. Granger who recommended she come to the emergency department for further evaluation. Patient denies any recent rash, cough, shortness of breath, chest pain, back pain, numbness, tingling, dizziness, weakn ess, hematuria, dysuria, urinary urgency, urinary frequency, headache, visual changes, or any other complaints. - Related Data Home Medications Medication Instructions Recorded Confirmed EPINEPHrine [Epipen 2-Varun] 0.3 mg IM ONCE PRN 07/18/17 06/12/20 Levocetirizine Dihydrochloride 5 mg PO DAILY 07/03/19 06/12/20 [Xyzal] Atorvastatin [Lipitor] 80 mg PO HS 06/09/20 06/12/20 Ergocalciferol [Vitamin D2 (1250 1,250 mcg PO WARREN 06/09/20 06/12/20 Mcg = 53256 Iu)] Omeprazole 20 mg PO DAILY 06/12/20 06/12/20 Allergies Allergy/AdvReac Type Severity Reaction Status Date / Time shellfish derived Allergy Severe tongue Verified 06/12/20 20:52 swells and hives azithromycin [From Zithromax] Allergy Rash/Hives Verified 06/12/20 20:52 ceftriaxone sodium Allergy Rash/Hives Verified 06/12/20 20:52 [From Rocephin] ciprofloxacin [From Cipro] Allergy Rash/Hives Verified 06/12/20 20:52 ciprofloxacin HCl Allergy Rash/Hives Verified 06/12/20 20:52 [From Cipro] citalopram hydrobromide Allergy Rash/Hives Verified 06/12/20 20:52 [From Celexa] egg Allergy TONGUE Verified 06/12/20 20:52 TINGLES escitalopram oxalate Allergy Rash/Hives Verified 06/12/20 20:52 [From Lexapro] Fish Containing Products Allergy Rash/Hives, Verified 06/12/20 20:52 [Fish] tongue swells fosphenytoin sodium Allergy TONGUE Verified 06/12/20 20:52 [From Cerebyx] SWELLING hydrocodone bitartrate Allergy Rash/Hives Verified 06/12/20 20:52 [From Lortab] hydromorphone HCl Allergy Rash/Hives Verified 06/12/20 20:52 [From Dilaudid] lamotrigine [From Lamictal] Allergy Rash/Hives Verified 06/12/20 20:52 levetiracetam [From Keppra] Allergy Rash/Hives Verified 06/12/20 20:52 lithium Allergy LOST VISION Verified 06/12/20 20:52 milk Allergy TONGUE Verified 06/12/20 20:52 TINGLES morphine Allergy Anaphylaxis Verified 06/12/20 20:52 peanut Allergy TONGUE Verified 06/12/20 20:52 TINGLES sulfamethoxazole Allergy Rash/Hives Verified 06/12/20 20:52 [From Bactrim] trimethobenzamide HCl Allergy Rash/Hives Verified 06/12/20 20:52 [From Tigan] trimethoprim [From Bactrim] Allergy Rash/Hives Verified 06/12/20 20:52 venom-honey bee Allergy Anaphylaxis Verified 06/12/20 20:52 [bee venom (honey bee)] Review of Systems ROS Statement: Those systems with pertinent positive or pertinent negative responses have been documented in the HPI. ROS Other: All systems not noted in ROS Statement are negative. Past Medical History Past Medical History: CVA/TIA, Fibromyalgia, GERD/Reflux, Hearing Disorder / Deafness, Hyperlipidemia, Myocardial Infarction ([place]), Osteoarthritis (OA), Seizure Disorder Additional Past Medical History / Comment(s): HX SEIZURES, last one in 2016. Vertigo; MIGRAINES; Peripheral Neuropathy. TACHYCARDIA; TIA X2; MINOR [place] X4. Bipolar, personality disorder, abd. pain Last Myocardial Infarction Date:: 2011 History of Any Multi-Drug Resistant Organisms: None Reported Past Surgical History: Cardiac Ablation, Cholecystectomy, Hysterectomy, Tubal Ligation, Uterine Ablation Additional Past Surgical History / Comment(s): EGD, COLONOSCOPY 12/24/14. LAPROSCOPIC REMOVAL OF RIGHT OVARY AND ADHESIONS AT [facility] 12/26/16 Past Anesthesia/Blood Transfusion Reactions: Previous Problems w/ Anesthesia, Family History of Problems w/ Anesthesia Additional Past Anesthesia/Blood Transfusion Reaction / Comment(s): Woke Up During ORAL Surgery in 2000; FATHER AND SIBLINGS ALSO WOKE DURING SURG. Past Psychological History: Bipolar, Depression, Panic Disorder, PTSD Smoking Status: Former smoker Past Alcohol Use History: None Reported Past Drug Use History: None Reported - Past Family History Sister(s) Family Medical History: Cancer Mother Family Medical History: Cancer Mother Sister(s) Family Medical History: Cancer General Exam Limitations: no limitations General appearance: alert, in no apparent distress, other (Physical well- developed, well-nourished adult female patient in mild distress related to pain. Vital signs upon presentation are temperature 98.8F, pulse 132, respirations 22, blood pressure 101/61, pulse ox 99% on room air) Eye exam: Present: normal appearance, PERRL, EOMI. Absent: scleral icterus, conjunctival injection, periorbital swelling ENT exam: Present: normal exam, normal oropharynx, mucous membranes moist Respiratory exam: Present: normal lung sounds bilaterally. Absent: respiratory distress, wheezes, rales, rhonchi, stridor Cardiovascular Exam: Present: regular rate, normal rhythm, normal heart sounds. Absent: systolic murmur, diastolic murmur, rubs, gallop, clicks GI/Abdominal exam: Present: soft, tenderness (Upper abdominal tenderness), nor mal bowel sounds. Absent: distended, guarding, rebound, rigid Neurological exam: Present: alert, oriented X3, CN II-XII intact Psychiatric exam: Present: normal affect, normal mood Skin exam: Present: warm, dry, intact, normal color. Absent: rash Course Vital Signs 06/12/20 06/12/20 06/12/20 19:36 20:39 21:57 Temperature 98.8 F Pulse Rate 132 H 91 83 Respiratory 22 18 16 Rate Blood Pressure 101/61 114/75 111/76 O2 Sat by Pulse 99 99 98 Oximetry Medical Decision Making - Medical Decision Making 39 year-old female presents to the emergency department for evaluation of upper abdominal pain after having EGD and colonoscopy yesterday. Abdomen was tender especially over the upper aspect. She is afebrile with normal vital signs. General medical. CT abdomen and pelvis is negative. She is given pain medication. Upon reevaluation states that symptoms are improved. She was discharged follow-up the primary care physician or GI specialist as soon as possible. Return parameters were discussed in detail. She verbalizes understanding and agrees with this plan. Case discussed with Dr. Sims. - Lab Data Result diagrams: 06/12/20 19:54 06/12/20 19:54 Lab Results 06/12/20 06/12/20 06/12/20 Range/Units 19:54 19:54 19:54 WBC 9.5 (3.8-10.6) k/uL RBC 5.06 (3.80-5.40) m/uL Hgb 14.8 (11.4-16.0) gm/dL Hct 44.6 (34.0-46.0) % MCV 88.2 (80.0-100.0) fL MCH 29.2 (25.0-35.0) pg MCHC 33.1 (31.0-37.0) g/dL RDW 13.2 (11.5-15.5) % Plt Count 289 (150-450) k/uL MPV 9.0 Neutrophils % 63 % Lymphocytes % 27 % Monocytes % 6 % Eosinophils % 1 % Basophils % 1 % Neutrophils # 6.0 (1.3-7.7) k/uL Lymphocytes # 2.6 (1.0-4.8) k/uL Monocytes # 0.5 (0-1.0) k/uL Eosinophils # 0.1 (0-0.7) k/uL Basophils # 0.1 (0-0.2) k/uL Sodium 141 (137-145) mmol/L Potassium 3.8 (3.5-5.1) mmol/L Chloride 101 (98-107) mmol/L Carbon Dioxide 27 (22-30) mmol/L Anion Gap 13 mmol/L BUN 7 (7-17) mg/dL Creatinine 0.70 (0.52-1.04) mg/dL Est GFR (CKD-EPI)AfAm >90 (>60 ml/min/1.73 sqM) Est GFR (CKD-EPI)NonAf >90 (>60 ml/min/1.73 sqM) Glucose 87 (74-99) mg/dL Plasma Lactic Acid Cyril (0.7-2.0) mmol/L Calcium 9.6 (8.4-10.2) mg/dL Total Bilirubin 0.5 (0.2-1.3) mg/dL AST 23 (14-36) U/L ALT 23 (4-34) U/L Alkaline Phosphatase 66 (38-126) U/L Total Protein 8.2 (6.3-8.2) g/dL Albumin 4.6 (3.5-5.0) g/dL Amylase 59 (30-110) U/L Lipase 102 (23-300) U/L Urine Color Yellow Urine Appearance Clear (Clear) Urine pH 5.5 (5.0-8.0) Ur Specific [place] 1.030 (1.001-1.035) Urine Protein Trace H (Negative) Urine Glucose (UA) Negative (Negative) Urine Ketones Negative (Negative) Urine Blood Negative (Negative) Urine Nitrite Negative (Negative) Urine Bilirubin Negative (Negative) Urine Urobilinogen <2.0 (<2.0) mg/dL Ur Leukocyte Esterase Negative (Negative) 06/12/20 Range/Units 19:54 WBC (3.8-10.6) k/uL RBC (3.80-5.40) m/uL Hgb (11.4-16.0) gm/dL Hct (34.0-46.0) % MCV (80.0-100.0) fL MCH (25.0-35.0) pg MCHC (31.0-37.0) g/dL RDW (11.5-15.5) % Plt Count (150-450) k/uL MPV Neutrophils % % Lymphocytes % % Monocytes % % Eosinophils % % Basophils % % Neutrophils # (1.3-7.7) k/uL Lymphocytes # (1.0-4.8) k/uL Monocytes # (0-1.0) k/uL Eosinophils # (0-0.7) k/uL Basophils # (0-0.2) k/uL Sodium (137-145) mmol/L Potassium (3.5-5.1) mmol/L Chloride (98-107) mmol/L Carbon Dioxide (22-30) mmol/L Anion Gap mmol/L BUN (7-17) mg/dL Creatinine (0.52-1.04) mg/dL Est GFR (CKD-EPI)AfAm (>60 ml/min/1.73 sqM) Est GFR (CKD-EPI)NonAf (>60 ml/min/1.73 sqM) Glucose (74-99) mg/dL Plasma Lactic Acid Cyril 1.1 (0.7-2.0) mmol/L Calcium (8.4-10.2) mg/dL Total Bilirubin (0.2-1.3) mg/dL AST (14-36) U/L ALT (4-34) U/L Alkaline Phosphatase (38-126) U/L Total Protein (6.3-8.2) g/dL Albumin (3.5-5.0) g/dL Amylase (30-110) U/L Lipase (23-300) U/L Urine Color Urine Appearance (Clear) Urine pH (5.0-8.0) Ur Specific [place] (1.001-1.035) Urine Protein (Negative) Urine Glucose (UA) (Negative) Urine Ketones (Negative) Urine Blood (Negative) Urine Nitrite (Negative) Urine Bilirubin (Negative) Urine Urobilinogen (<2.0) mg/dL Ur Leukocyte Esterase (Negative) - Radiology Data Radiology results: report reviewed, image reviewed CT abdomen and pelvis with contrast was obtained. Report was reviwed in its ent irety. Dr. Martinez shows no acute abnormality of the abdomen pelvis. Normal appendix. Disposition Clinical Impression: Abdominal pain Disposition: HOME SELF-CARE Condition: Good Instructions (If sedation given, give patient instructions): Abdominal Pain (ED) Additional Instructions: Follow-up with the primary care physician for recheck in 1-2 days. Follow-up with Dr. Granger as you have planned. Return to the emergency department for any new, worsening, or concerning symptoms. Is patient prescribed a controlled substance at d/c from ED?: No Referrals: Sayda Prince MD [Primary Care Provider] - 1-2 days Time of Disposition: 21:47
[2020-06-12 20:23] LABS: Basophils # (A) 0.1 k/uL (0-0.2); Basophils % (A) 1 %; Eosinophils # (A) 0.1 k/uL (0-0.7); Eosinophils % (A) 1 %; HCT 44.6 % (34.0-46.0); HGB 14.8 gm/dL (11.4-16.0); Lymphocytes # (A) 2.6 k/uL (1.0-4.8); Lymphocytes % (A) 27 %; MCH 29.2 pg (25.0-35.0); MCHC 33.1 g/dL (31.0-37.0); MCV 88.2 fL (80.0-100.0); Monocytes # (A) 0.5 k/uL (0-1.0); Monocytes % (A) 6 %; Neutrophils % (A) 63 %; Platelet Count 289 k/uL (150-450); RBC 5.06 m/uL (3.80-5.40); RDW 13.2 % (11.5-15.5); WBC 9.5 k/uL (3.8-10.6)
[2020-06-12 20:29] LABS: ALT 23 U/L (4-34); AST 23 U/L (14-36); African American GFR (CKD) >90 (>60 ml/min/1.73 sqM); Albumin 4.6 g/dL (3.5-5.0); Alkaline Phosphatase 66 U/L (38-126); Amylase 59 U/L (30-110); Anion Gap 13 mmol/L; Blood Urea Nitrogen 7 mg/dL (7-17); Calcium 9.6 mg/dL (8.4-10.2); Carbon Dioxide 27 mmol/L (22-30); Chloride 101 mmol/L (98-107); Glucose 87 mg/dL (74-99); Lipase 102 U/L (23-300); Non-African American GFR(CKD) >90 (>60 ml/min/1.73 sqM); Potassium 3.8 mmol/L (3.5-5.1); Sodium 141 mmol/L (137-145); Total Bilirubin 0.5 mg/dL (0.2-1.3); Total Protein 8.2 g/dL (6.3-8.2)
[2020-06-12] MEDS ORDERED: diphenhydrAMINE 50 MG/ML 1 ML VIAL IVP STA (20:55)
[2020-06-12] MEDS ORDERED: FAMOTIDINE 20 MG/2 ML VIAL IV STA (20:55)
[2020-06-12] MEDS ORDERED: HYDROmorphone 0.5 MG/0.5 ML SYRINGE IVP STA (20:55)
--- NOTE | 2020-06-12 20:56 | CT ---
EXAMINATION TYPE: CT abdomen pelvis w con DATE OF EXAM: 06/12/2020 COMPARISON: 03/04/2020 HISTORY: abdominal pain post EGD/colonoscopy CT DLP: 1427.8 mGycm Automated exposure control for dose reduction was used. CONTRAST: Performed with IV Contrast, patient injected with 100 mL of Isovue 300. Images were obtained from the diaphragm to the floor the pelvis with IV contrast. Lung bases are clear. There is no pleural effusion. Heart size is normal. There is no pericardial eff usion. There clips at the gastroesophageal junction. Stomach is intact. There are clips from cholecys tectomy. The bile ducts are not dilated. Liver shows no focal defect. Spleen is intact. There is no p ancreatic mass. There is no adrenal mass. Kidneys show satisfactory contrast opacification. There is no hydronephrosi s. Delayed images show normal renal excretion. There is no retroperitoneal adenopathy. There is no ev idence of a renal mass. The bladder is almost empty. There is no inguinal hernia. There is no free fluid in the pelvis. There is hysterectomy. There is no evidence of a pelvic mass. There is no free fluid in the pelvis. Append ix is posterior and appears normal. There is no mesenteric edema. There is no ascites or free air. There is no bowel obstruction. The lum bar vertebra have normal spacing and alignment. Posterior elements are intact. Bony pelvis is intact. The hip joints are intact. There is mild acetabular spurring. IMPRESSION: No acute abnormality of the abdomen pelvis. Normal appendix.
[2020-06-12 21:00] LABS: Appearance,Urine Clear (Clear); Bilirubin,Urine Negative (Negative); Blood,Urine Negative (Negative); Color,Urine Yellow; Glucose,Urine (UA) Negative (Negative); Ketones,Urine Negative (Negative); Leukocyte Esterase,Urine Negative (Negative); Nitrite,Urine Negative (Negative); PH, Urine 5.5 (5.0-8.0); Protein,Urine Trace (Negative); Urobilinogen,Urine <2.0 mg/dL (<2.0)
[2020-06-12] MEDS ORDERED: ACET/COD 300 MG/30 MG STARTER PACK 6 TAB BTL PO STA (21:47)
[2020-06-12 21:59] VITALS: BP 111/76; PULSE 83; RESP 16
== END 2020-06-12 21:59 | disposition home or self-care (01) ==
LOC: EC 19:28
DX: R10.10 Upper abdominal pain, unspecified (principal); R11.0 Nausea; K21.9 Gastro-esophageal reflux disease without esophagitis; E78.5 Hyperlipidemia, unspecified; I25.2 Old myocardial infarction; Z79.899 Other long term (current) drug therapy; Z91.013 Allergy to seafood; Z88.1 Allergy status to other antibiotic agents; Z88.8 Allergy status to other drugs, medicaments and biological substances; Z91.012 Allergy to eggs; Z88.5 Allergy status to narcotic agent; Z91.048 Other nonmedicinal substance allergy status; Z91.011 Allergy to milk products; Z91.010 Allergy to peanuts; Z88.2 Allergy status to sulfonamides; Z91.030 Bee allergy status; Z86.73 Personal history of transient ischemic attack (TIA), and cerebral infarction without residual deficits; Z87.891 Personal history of nicotine dependence
CPT/HCPCS: 36415; 80053; 82150; 83605; 83690; 85025; 81003; 74177; 99284; 96374; 96375 ×4; 96361; J1200; J2405; J1885; J1170; Q9967

== ENCOUNTER → 2020-06-20 | Outpatient (CLI) | payer OTHER ==
--- NOTE | 2020-06-20 13:44 | XR ---
EXAMINATION TYPE: XR cervical spine comp DATE OF EXAM: 06/20/2020 CLINICAL HISTORY: pain COMPARISON: NONE TECHNIQUE: Frontal, lateral, oblique, swimmers, and open mouth view of the cervical spine are obtaine d. FINDINGS: The cervical spine is visualized in its entirety from C1 thru the top of T1 level. It is s atisfactory in alignment without evidence of acute fracture or dislocation. The pre-vertebral soft t issue appears within normal limits. Mild scattered degenerative disc space narrowing and spondylosis. The C1-C2 articulation is unremarkable on the open mouth view. The oblique images are within normal limits. IMPRESSION: No acute fracture or dislocation is seen in the cervical spine.ICD 10 NO FRACTURE, INITI AL EVALUATION
--- NOTE | 2020-06-20 13:45 | XR ---
EXAMINATION TYPE: XR lumbosacral spine min 4V DATE OF EXAM: 06/20/2020 CLINICAL HISTORY: pain COMPARISON: NONE TECHNIQUE: Frontal, lateral, and oblique images of the lumbar spine are obtained. FINDINGS: There are 5 lumbar type vertebral bodies identified. The lumbar spine shows satisfactory alignment without evidence of acute fracture or dislocation. Vertebral body heights are within normal limits. Mild multilevel degenerative disc space narrowing and spondylosis. The overlying soft tiss ue appears unremarkable. IMPRESSION: No acute fracture or dislocation is seen in the lumbar spine.ICD 10 NO FRACTURE, INITIAL EVALUATION
== END | disposition home or self-care (01) ==
LOC: RADXRMAIN 12:49
PROVIDERS: ATTEND Family Medicine
DX: M54.5 Low back pain (principal); M54.2 Cervicalgia; G89.29 Other chronic pain
CPT/HCPCS: 72050; 72110

== ENCOUNTER 2021-01-06 12:50 | Emergency (ER) | payer OTHER ==
[2021-01-06] MEDS ORDERED: SODIUM CHLORIDE 0.9% 1,000 ML IV STA (13:11)
--- NOTE | 2021-01-06 13:17 | ED ---
General Adult HPI - General Chief complaint: Nausea/Vomiting/Diarrhea Stated complaint: Dizziness/Changes in Vision Source: patient, RN/MD, old records reviewed Mode of arrival: ambulatory Limitations: no limitations - History of Present Illness Initial comments: 40-year-old white female, alert and oriented 4, presents to the emergency room with complaints of waking up yesterday morning with headache and lightheadedness. She also states that she has nausea but no vomiting. She states that having difficulty with her vision states that with her glasses things still seemed blurry. She states headache is now resolved. She states that she feels lightheaded but not dizzy, worsens with position changes and she does need to sit and wait for it to resolve before she walks. She does have a loop recorder but states that she has not felt any tachycardia. She is scheduled to have another ablation however her insurance changed and that appointment was lost. She has an appointment with the placement specialist on January 13. -: days(s) (2) Location: head Radiation: non-radiation Severity scale (1-10): 0 Consistency: intermittent Improves with: rest Worsens with: movement Associated Symptoms: nausea/vomiting, other (vision change) - Related Data Home Medications Medication Instructions Recorded Confirmed EPINEPHrine [Epipen 2-Varun] 0.3 mg IM ONCE PRN 07/18/17 01/06/21 Levocetirizine Dihydrochloride 5 mg PO DAILY PRN 07/03/19 01/06/21 [Xyzal] Aspirin/Acetaminophen/Caffeine 2 tab PO Q12H PRN 01/06/21 01/06/21 [Excedrin Migraine Caplet] guaiFENesin SYRUP 100MG/5ML 200 mg PO Q12H PRN 01/06/21 01/06/21 [Robitussin] Allergies Allergy/AdvReac Type Severity Reaction Status Date / Time shellfish derived Allergy Severe tongue Verified 01/06/21 14:48 swells and hives azithromycin [From Zithromax] Allergy Rash/Hives Verified 01/06/21 14:48 ceftriaxone sodium Allergy Rash/Hives Verified 01/06/21 14:48 [From Rocephin] ciprofloxacin [From Cipro] Allergy Rash/Hives Verified 01/06/21 14:48 ciprofloxacin HCl Allergy Rash/Hives Verified 01/06/21 14:48 [From Cipro] citalopram hydrobromide Allergy Rash/Hives Verified 01/06/21 14:48 [From Celexa] egg Allergy TONGUE Verified 01/06/21 14:48 TINGLES escitalopram oxalate Allergy Rash/Hives Verified 01/06/21 14:48 [From Lexapro] Fish Containing Products Allergy Rash/Hives, Verified 01/06/21 14:48 [Fish] tongue swells fosphenytoin sodium Allergy TONGUE Verified 01/06/21 14:48 [From Cerebyx] SWELLING hydrocodone bitartrate Allergy Rash/Hives Verified 01/06/21 14:48 [From Lortab] hydromorphone HCl Allergy Rash/Hives Verified 01/06/21 14:48 [From Dilaudid] lamotrigine [From Lamictal] Allergy Rash/Hives Verified 01/06/21 14:48 levetiracetam [From Keppra] Allergy Rash/Hives Verified 01/06/21 14:48 lithium Allergy LOST VISION Verified 01/06/21 14:48 milk Allergy TONGUE Verified 01/06/21 14:48 TINGLES morphine Allergy Anaphylaxis Verified 01/06/21 14:48 peanut Allergy TONGUE Verified 01/06/21 14:48 TINGLES sulfamethoxazole Allergy Rash/Hives Verified 01/06/21 14:48 [From Bactrim] trimethobenzamide HCl Allergy Rash/Hives Verified 01/06/21 14:48 [From Tigan] trimethoprim [From Bactrim] Allergy Rash/Hives Verified 01/06/21 14:48 venom-honey bee Allergy Anaphylaxis Verified 01/06/21 14:48 [bee venom (honey bee)] Review of Systems ROS Statement: Those systems with pertinent positive or pertinent negative responses have been documented in the HPI. ROS Other: All systems not noted in ROS Statement are negative. Past Medical History Past Medical History: CVA/TIA, Fibromyalgia, GERD/Reflux, Hearing Disorder / Deafness, Hyperlipidemia, Myocardial Infarction ([place]), Osteoarthritis (OA), Seizure Disorder Additional Past Medical History / Comment(s): HX SEIZURES, last one in 2017. Vertigo; MIGRAINES; Peripheral Neuropathy. TACHYCARDIA; TIA X2; MINOR [place] X4. Bipolar, personality disorder, abd. pain Last Myocardial Infarction Date:: 2011 History of Any Multi-Drug Resistant Organisms: None Reported Past Surgical History: Cardiac Ablation, Cholecystectomy, Hysterectomy, Tubal Ligation, Uterine Ablation Additional Past Surgical History / Comment(s): EGD, COLONOSCOPY 12/24/14. LAPROSCOPIC REMOVAL OF RIGHT OVARY AND ADHESIONS AT [facility] 12/26/16 Past Anesthesia/Blood Transfusion Reactions: Previous Problems w/ Anesthesia, Family History of Problems w/ Anesthesia Additional Past Anesthesia/Blood Transfusion Reaction / Comment(s): Woke Up During ORAL Surgery in 2000; FATHER AND SIBLINGS ALSO WOKE DURING SURG. Past Psychological History: Bipolar, Depression, Panic Disorder, PTSD Smoking Status: Former smoker Past Alcohol Use History: None Reported Past Drug Use History: None Reported - Past Family History Sister(s) Family Medical History: Cancer Mother Family Medical History: Cancer Mother Sister(s) Family Medical History: Cancer General Exam Limitations: no limitations General appearance: alert, in no apparent distress Head exam: Present: atraumatic, normocephalic, normal inspection Eye exam: Present: normal appearance, PERRL, EOMI. Absent: scleral icterus, conjunctival injection, nystagmus, periorbital swelling Pupils: Present: normal accommodation ENT exam: Present: normal exam, normal oropharynx, mucous membranes moist Neck exam: Present: normal inspection, full ROM. Absent: tenderness, meningismus, lymphadenopathy Respiratory exam: Present: normal lung sounds bilaterally. Absent: respiratory distress, wheezes, rales, rhonchi, stridor Cardiovascular Exam: Absent: JVD GI/Abdominal exam: Present: soft, normal bowel sounds. Absent: distended, tenderness, guarding, rebound, rigid Extremities exam: Present: normal inspection, full ROM, normal capillary refill. Absent: tenderness, pedal edema, joint swelling, calf tenderness Back exam: Present: normal inspection. Absent: tenderness, CVA tenderness (R), CVA tenderness (L), muscle spasm, paraspinal tenderness, vertebral tenderness, rash noted Neurological exam: Present: alert, oriented X3, CN II-XII intact Expanded Patient oriented to: Present: person, place, time Speech: Present: fluid speech Cranial nerves: EOM's Intact: Normal, Gag Reflex: Normal, Tongue Deviation: Normal Motor strength exam: RUE: 5, LUE: 5, RLE: 5, LLE: 5 Eye Response: (4) open spontaneously Motor Response: (6) obeys commands Verbal Response: (5) oriented Lana Total: 15 Psychiatric exam: Present: normal affect, normal mood Skin exam: Present: warm, dry, intact, normal color. Absent: rash Course Vital Signs 01/06/21 01/06/21 01/06/21 12:51 13:39 15:08 Temperature 98.3 F Pulse Rate 103 H 93 92 Respiratory 20 18 18 Rate Blood Pressure 129/84 130/98 127/71 O2 Sat by Pulse 95 95 99 Oximetry 01/06/21 16:04 Temperature 97.8 F Pulse Rate 85 Respiratory 18 Rate Blood Pressure 126/89 O2 Sat by Pulse 98 Oximetry EKG Findings - EKG Results: EKG: sinus rhythm, not changed from: (07/03/19) EKG shows: tachycardia (Ventricular rate 103, LA interval of 0.138, QRS 0.80, QTC 0.450) Medical Decision Making - Medical Decision Making EKG shows sinus tachycardia at 103, troponin is negative at 0.012, electrolytes are all within normal limits. UA is negative for infection. Patient is ambulatory to the bathroom with a steady gait. Patient is well-appearing. She has been afebrile. Her abdomen is soft and nontender. There is no evidence of leukocytosis. Her symptoms are consistent with benign positional vertigo. She'll be directed to increase her fluid intake and change positions slowly. She will be directed to follow up with primary care doctor this week, return with any worsening or new symptoms including chest pain, shortness of breath, abdominal pain or fevers. Case discussed with Dr. Jain - Lab Data Result diagrams: 01/06/21 13:28 01/06/21 13:28 Lab Results 01/06/21 01/06/21 01/06/21 Range/Units 13:28 13:28 13:28 WBC 9.0 (3.8-10.6) k/uL RBC 4.93 (3.80-5.40) m/uL Hgb 14.8 (11.4-16.0) gm/dL Hct 44.3 (34.0-46.0) % MCV 89.7 (80.0-100.0) fL MCH 30.1 (25.0-35.0) pg MCHC 33.6 (31.0-37.0) g/dL RDW 14.0 (11.5-15.5) % Plt Count 254 (150-450) k/uL MPV 9.9 Neutrophils % 66 % Lymphocytes % 25 % Monocytes % 4 % Eosinophils % 2 % Basophils % 1 % Neutrophils # 6.0 (1.3-7.7) k/uL Lymphocytes # 2.3 (1.0-4.8) k/uL Monocytes # 0.4 (0-1.0) k/uL Eosinophils # 0.2 (0-0.7) k/uL Basophils # 0.1 (0-0.2) k/uL PT 10.8 (9.0-12.0) sec INR 1.0 (<1.2) Sodium 138 (137-145) mmol/L Potassium 4.2 (3.5-5.1) mmol/L Chloride 107 (98-107) mmol/L Carbon Dioxide 21 L (22-30) mmol/L Anion Gap 10 mmol/L BUN 7 (7-17) mg/dL Creatinine 0.60 (0.52-1.04) mg/dL Est GFR (CKD-EPI)AfAm >90 (>60 ml/min/1.73 sqM) Est GFR (CKD-EPI)NonAf >90 (>60 ml/min/1.73 sqM) Glucose 99 (74-99) mg/dL Calcium 9.3 (8.4-10.2) mg/dL Total Bilirubin 0.4 (0.2-1.3) mg/dL AST 23 (14-36) U/L ALT 19 (4-34) U/L Alkaline Phosphatase 69 (38-126) U/L Troponin I (0.000-0.034) ng/mL Total Protein 7.3 (6.3-8.2) g/dL Albumin 4.4 (3.5-5.0) g/dL Urine Color Urine Appearance (Clear) Urine pH (5.0-8.0) Ur Specific [employer] (1.001-1.035) Urine Protein (Negative) Urine Glucose (UA) (Negative) Urine Ketones (Negative) Urine Blood (Negative) Urine Nitrite (Negative) Urine Bilirubin (Negative) Urine Urobilinogen (<2.0) mg/dL Ur Leukocyte Esterase (Negative) 01/06/21 01/06/21 Range/Units 13:28 15:12 WBC (3.8-10.6) k/uL RBC (3.80-5.40) m/uL Hgb (11.4-16.0) gm/dL Hct (34.0-46.0) % MCV (80.0-100.0) fL MCH (25.0-35.0) pg MCHC (31.0-37.0) g/dL RDW (11.5-15.5) % Plt Count (150-450) k/uL MPV Neutrophils % % Lymphocytes % % Monocytes % % Eosinophils % % Basophils % % Neutrophils # (1.3-7.7) k/uL Lymphocytes # (1.0-4.8) k/uL Monocytes # (0-1.0) k/uL Eosinophils # (0-0.7) k/uL Basophils # (0-0.2) k/uL PT (9.0-12.0) sec INR (<1.2) Sodium (137-145) mmol/L Potassium (3.5-5.1) mmol/L Chloride (98-107) mmol/L Carbon Dioxide (22-30) mmol/L Anion Gap mmol/L BUN (7-17) mg/dL Creatinine (0.52-1.04) mg/dL Est GFR (CKD-EPI)AfAm (>60 ml/min/1.73 sqM) Est GFR (CKD-EPI)NonAf (>60 ml/min/1.73 sqM) Glucose (74-99) mg/dL Calcium (8.4-10.2) mg/dL Total Bilirubin (0.2-1.3) mg/dL AST (14-36) U/L ALT (4-34) U/L Alkaline Phosphatase (38-126) U/L Troponin I <0.012 (0.000-0.034) ng/mL Total Protein (6.3-8.2) g/dL Albumin (3.5-5.0) g/dL Urine Color Yellow Urine Appearance Clear (Clear) Urine pH 5.5 (5.0-8.0) Ur Specific [employer] 1.019 (1.001-1.035) Urine Protein Negative (Negative) Urine Glucose (UA) Negative (Negative) Urine Ketones Negative (Negative) Urine Blood Negative (Negative) Urine Nitrite Negative (Negative) Urine Bilirubin Negative (Negative) Urine Urobilinogen <2.0 (<2.0) mg/dL Ur Leukocyte Esterase Negative (Negative) Disposition Clinical Impression: Lightheadedness Disposition: HOME SELF-CARE Condition: Good Instructions (If sedation given, give patient instructions): Acute Nausea and Vomiting (ED) Additional Instructions: Follow-up with the primary care doctor this week. Return to the emergency room with any new or worsening symptoms including fever, increasing pain or inability to keep food or fluids down. Is patient prescribed a controlled substance at d/c from ED?: No Referrals: Sayda Prince MD [Primary Care Provider] - 1-2 days Time of Disposition: 15:51
[2021-01-06 13:35] LABS: Basophils # (A) 0.1 k/uL (0-0.2); Basophils % (A) 1 %; Eosinophils # (A) 0.2 k/uL (0-0.7); Eosinophils % (A) 2 %; HCT 44.3 % (34.0-46.0); HGB 14.8 gm/dL (11.4-16.0); Lymphocytes # (A) 2.3 k/uL (1.0-4.8); Lymphocytes % (A) 25 %; MCH 30.1 pg (25.0-35.0); MCHC 33.6 g/dL (31.0-37.0); MCV 89.7 fL (80.0-100.0); Mean Platelet Volume 9.9; Monocytes # (A) 0.4 k/uL (0-1.0); Monocytes % (A) 4 %; Neutrophils % (A) 66 %; Platelet Count 254 k/uL (150-450); RBC 4.93 m/uL (3.80-5.40)
[2021-01-06 13:40] VITALS: RESP 18
[2021-01-06 13:48] LABS: ALT 19 U/L (4-34); AST 23 U/L (14-36); African American GFR (CKD) >90 (>60 ml/min/1.73 sqM); Albumin 4.4 g/dL (3.5-5.0); Alkaline Phosphatase 69 U/L (38-126); Anion Gap 10 mmol/L; Blood Urea Nitrogen 7 mg/dL (7-17); Calcium 9.3 mg/dL (8.4-10.2); Carbon Dioxide 21 mmol/L (22-30); Chloride 107 mmol/L (98-107); Glucose 99 mg/dL (74-99); Non-African American GFR(CKD) >90 (>60 ml/min/1.73 sqM); Potassium 4.2 mmol/L (3.5-5.1); Sodium 138 mmol/L (137-145); Total Bilirubin 0.4 mg/dL (0.2-1.3); Total Protein 7.3 g/dL (6.3-8.2)
[2021-01-06 13:50] LABS: Prothrombin Time 10.8 sec (9.0-12.0)
[2021-01-06 15:34] LABS: Appearance,Urine Clear (Clear); Bilirubin,Urine Negative (Negative); Blood,Urine Negative (Negative); Color,Urine Yellow; Glucose,Urine (UA) Negative (Negative); Ketones,Urine Negative (Negative); Leukocyte Esterase,Urine Negative (Negative); Nitrite,Urine Negative (Negative); PH, Urine 5.5 (5.0-8.0); Protein,Urine Negative (Negative); Specific Gravity,Urine 1.019 (1.001-1.035); Urobilinogen,Urine <2.0 mg/dL (<2.0)
[2021-01-06 16:04] VITALS: BP 126/89; PULSE 85; TEMP 97.8
== END 2021-01-06 16:04 | disposition home or self-care (01) ==
LOC: EC 12:50
DX: R42 Dizziness and giddiness (principal); I25.2 Old myocardial infarction; M19.90 Unspecified osteoarthritis, unspecified site; K21.9 Gastro-esophageal reflux disease without esophagitis; E78.5 Hyperlipidemia, unspecified; F31.9 Bipolar disorder, unspecified; F43.12 Post-traumatic stress disorder, chronic; Z88.1 Allergy status to other antibiotic agents; Z88.5 Allergy status to narcotic agent; Z91.011 Allergy to milk products; Z91.013 Allergy to seafood; Z88.2 Allergy status to sulfonamides; Z91.010 Allergy to peanuts; Z91.030 Bee allergy status; Z79.82 Long term (current) use of aspirin; Z86.73 Personal history of transient ischemic attack (TIA), and cerebral infarction without residual deficits; Z90.49 Acquired absence of other specified parts of digestive tract; Z90.710 Acquired absence of both cervix and uterus; Z98.51 Tubal ligation status; Z87.891 Personal history of nicotine dependence; Z90.721 Acquired absence of ovaries, unilateral
CPT/HCPCS: 36415; 80053; 81003; 84484; 85025; 85610; 93005; 96360; 99284

== ENCOUNTER 2021-03-29 08:39 | Emergency (ER) | payer OTHER ==
[2021-03-29 08:45] VITALS: BP 92/58; PULSE 104; RESP 18; TEMP 97.9
[2021-03-29 09:23] LABS: Basophils # (A) 0.1 k/uL (0-0.2); Basophils % (A) 1 %; Eosinophils # (A) 0.2 k/uL (0-0.7); Eosinophils % (A) 3 %; HCT 42.4 % (34.0-46.0); HGB 14.2 gm/dL (11.4-16.0); Lymphocytes # (A) 2.5 k/uL (1.0-4.8); Lymphocytes % (A) 30 %; MCH 29.7 pg (25.0-35.0); MCHC 33.4 g/dL (31.0-37.0); Mean Platelet Volume 9.6; Monocytes # (A) 0.4 k/uL (0-1.0); Monocytes % (A) 4 %; Neutrophils # (A) 4.9 k/uL (1.3-7.7); Neutrophils % (A) 60 %; Platelet Count 235 k/uL (150-450); RBC 4.76 m/uL (3.80-5.40); RDW 13.2 % (11.5-15.5); WBC 8.2 k/uL (3.8-10.6)
[2021-03-29 09:33] LABS: ALT 18 U/L (4-34); AST 21 U/L (14-36); African American GFR (CKD) >90 (>60 ml/min/1.73 sqM); Alkaline Phosphatase 50 U/L (38-126); Anion Gap 10 mmol/L; Blood Urea Nitrogen 10 mg/dL (7-17); Calcium 8.9 mg/dL (8.4-10.2); Carbon Dioxide 23 mmol/L (22-30); Chloride 106 mmol/L (98-107); Glucose 112 mg/dL (74-99); Magnesium 1.8 mg/dL (1.6-2.3); Non-African American GFR(CKD) >90 (>60 ml/min/1.73 sqM); Potassium 4.2 mmol/L (3.5-5.1); Sodium 139 mmol/L (137-145); Total Bilirubin 0.5 mg/dL (0.2-1.3); Total Protein 7.2 g/dL (6.3-8.2)
[2021-03-29 09:50] LABS: INR 0.9 (<1.2)
== END 2021-03-29 12:42 | disposition left against medical advice (07) ==
LOC: EC 08:39
DX: R05.9 Cough, unspecified (principal)
CPT/HCPCS: 36415; 80053; 83735; 84484; 85025; 85610; 85730; 99499

== ENCOUNTER → 2021-03-29 | Outpatient (CLI) | payer OTHER ==
[2021-03-29 10:59] LABS: HCT 44.5 % (37.2-46.3); HGB 14.5 g/dL (12.0-15.0); MCH 29.1 pg (27.0-32.0); MCHC 32.6 g/dL (32.0-37.0); MCV 89.2 fL (80.0-97.0); Mean Platelet Volume 12.8 fL (9.5-12.2); Platelet Count 255 X 10*3/uL (140-440); RBC 4.99 X 10*6/uL (4.10-5.20); RDW 13.2 % (11.5-14.5); WBC 9.05 X 10*3/uL (4.50-10.00)
[2021-03-29 17:22] LABS: T4, Free (Free Thyroxine) 0.99 ng/dL (0.800-1.800)
[2021-03-29 21:03] LABS: African American GFR (CKD) 127.4 (60.0-200.0); Albumin 4.5 g/dL (3.8-4.9); Albumin/Globulin Ratio 1.5 (1.60-3.17); Anion Gap 18.5 mmol/L (4.00-12.00); BUN/Creat Ratio 13.43 Ratio (12.00-20.00); Blood Urea Nitrogen 9.4 mg/dL (9.0-27.0); Calcium 9.1 mg/dL (8.7-10.3); Carbon Dioxide 18.5 mmol/L (21.6-31.8); Non-African American GFR(CKD) 109.9 (60.0-200.0); Total Bilirubin 0.3 mg/dL (0.30-1.20); Total Protein 7.5 g/dL (6.2-8.2)
== END | disposition home or self-care (01) ==
LOC: LABWHC1 08:07
PROVIDERS: ATTEND Psychiatry & Neurology Neurology
DX: G35 Multiple sclerosis (principal); G62.9 Polyneuropathy, unspecified
CPT/HCPCS: 36415; 80053; 82306; 82607; 83916; 84207; 84439; 84443; 85027

== ENCOUNTER → 2021-06-04 | Outpatient (CLI) | payer OTHER ==
[~2021-06-04] MED LIST changes: -LACTATED RINGERS 1,000 ML IV SCH; +SODIUM CHLORIDE 0.9% 50 ML IVPB ONE; +SODIUM CHLORIDE 0.9% 500 ML 500 ML in EMPTY BAG 1 BAG IV PRN; +SOTROVIMAB (EUA) 500 MG in SODIUM CHLORIDE 0.9% 100 ML IVPB ONE
[2021-06-04 13:53] VITALS: RESP 16; TEMP 98.7
[2021-06-04 15:32] VITALS: BP 116/81; PULSE 80
== END ==
LOC: PROCWHC3 13:01
PROVIDERS: ATTEND Nurse Practitioner Family
DX: U07.1 COVID-19 (principal); E66.9 Obesity, unspecified; J45.30 Mild persistent asthma, uncomplicated; E78.2 Mixed hyperlipidemia; Z86.73 Personal history of transient ischemic attack (TIA), and cerebral infarction without residual deficits; Z68.41 Body mass index [BMI] 40.0-44.9, adult; Z87.891 Personal history of nicotine dependence; Z91.013 Allergy to seafood; Z88.1 Allergy status to other antibiotic agents; Z91.012 Allergy to eggs; Z88.8 Allergy status to other drugs, medicaments and biological substances; Z88.5 Allergy status to narcotic agent; Z91.010 Allergy to peanuts; Z91.011 Allergy to milk products; Z88.2 Allergy status to sulfonamides; Z91.030 Bee allergy status
CPT/HCPCS: 96360; Q0247; M0247

== ENCOUNTER → 2023-02-02 | Outpatient (CLI) | payer OTHER ==
--- NOTE | 2023-02-02 08:17 | MM ---
Reason for Exam: Clinical finding. Last mammogram was performed 5 year(s) and 1 month(s) ago. Indicated Problems: Pain of the left side (Focal) for 2 Week(s) : behind nipple and laterally. Patient History: Menarche at age 14. First Full-Term at age 27. Right ovary removed at age 36. Hysterectomy at age 32. Postmenopausal. Patient has history of breast feeding. Hormonal Contraceptives, from age 18 until age 30. Maternal cousin had breast cancer, age 30. Maternal aunt had breast cancer, age 40. Maternal aunt had breast cancer, age 50. Maternal aunt had breast cancer at or over age 50. Maternal aunt had breast cancer at or over age 50. Maternal aunt had breast cancer at or over age 50. Maternal aunt had breast cancer at or over age 50. Maternal aunt had breast cancer at or over age 50. Maternal aunt had ovarian cancer at or over age 50. Maternal cousin had breast cancer under age 50. Maternal cousin had breast cancer under age 50. Risk Values: Luann 5 year model risk: 0.6%. NCI Lifetime model risk: 11.1%. Prior Study Comparison: 01/10/2018 Bilateral Diagnostic Mammogram, [facility]. Tissue Density: There are scattered fibroglandular densities. Findings: Analyzed By CAD. No evidence for mass or distortion. No suspicious calcifications seen. Overall Assessment: Benign, BI-RAD 2 Management: Screening Mammogram of both breasts in 1 year. . Results were given to the patient verbally at the time of exam. Patient should continue monthly self-breast exams. A clinical breast exam by your physician is recommended on an annual basis. This exam should not preclude additional follow-up of suspicious palpable abnormalities. Note on Luann scores and lifetime risk: 1. A Luann score greater than 3% is considered moderate risk. If this is the case, consider specialist referral to assess eligibility for a risk reducing agent. 2. If overall lifetime risk for the development of breast cancer is 20% or higher, the patient may qualify for future screening with alternating mammogram and breast MRI. Electronically signed and approved by: Darnell Virgen M.D. Radiologis
== END | disposition home or self-care (01) ==
LOC: RADMAMWWP 07:31
PROVIDERS: ATTEND Family Medicine
DX: N64.4 Mastodynia (principal); Z80.3 Family history of malignant neoplasm of breast; Z78.0 Asymptomatic menopausal state; Z80.41 Family history of malignant neoplasm of ovary
CPT/HCPCS: 77066; G0279; 77062

== ENCOUNTER 2023-04-21 20:52 | Emergency (ER) | payer OTHER ==
[2023-04-21] MEDS ORDERED: ASPIRIN 81 MG PO STA (21:10)
--- NOTE | 2023-04-21 21:12 | ED ---
Chest Pain HPI - General Chief Complaint: Chest Pain Stated Complaint: Chest pain Time Seen by Provider: 04/21/23 21:09 Source: patient, EMS Mode of arrival: EMS - History of Present Illness Initial Comments: 's patient is a 42-year-old woman with history of previous SVT, who presents with complaint that she developed racing heart and chest pain tonight while she was at work. The patient states that it started similar to previous episodes of SVT. She notes that her heart was racing. She thought that if she leaned over and tried bearing down that may improve things but it did not help. She states the heart rate was very high and she had some substernal tightness that seemed to go towards her neck. EMS was called and brought her here for further evaluation. She states that when they gave aspirin and nitroglycerin and placed her on oxygen the symptoms rapidly resolved. She is not having racing heartbeat or chest pain any longer. Patient previously had been taking metoprolol but states she still had episodes of SVT and her blood pressure was low so they stop this medicine. MD Complaint: chest pain Onset/Timin -: hour(s) Onset: other (While at work) Pain Location: substernal Pain Radiation: neck Severity: moderate Quality: aching Consistency: now resolved Improves With: nothing Worsens With: nothing Other Symptoms: palpitations Treatments Prior to Arrival: none - Related Data Home Medications Medication Instructions Recorded Confirmed EPINEPHrine [Epipen 2-Varun] 0.3 mg IM ONCE PRN 07/18/17 04/21/23 Atorvastatin [Lipitor] 80 mg PO DAILY 04/21/23 04/21/23 Allergies Allergy/AdvReac Type Severity Reaction Status Date / Time shellfish derived Allergy Severe tongue Verified 04/21/23 22:22 swells and hives asenapine [From Saphris] Allergy Unknown Verified 04/21/23 22:22 azithromycin [From Zithromax] Allergy Rash/Hives Verified 04/21/23 22:22 ceftriaxone sodium Allergy Rash/Hives Verified 04/21/23 22:22 [From Rocephin] chlordiazepoxide Allergy Unknown Verified 04/21/23 22:22 [From Librium] ciprofloxacin [From Cipro] Allergy Rash/Hives Verified 04/21/23 22:22 ciprofloxacin HCl Allergy Rash/Hives Verified 04/21/23 22:22 [From Cipro] citalopram hydrobromide Allergy Rash/Hives Verified 04/21/23 22:22 [From Celexa] egg Allergy TONGUE Verified 04/21/23 22:22 TINGLES escitalopram oxalate Allergy Rash/Hives Verified 04/21/23 22:22 [From Lexapro] Fish Containing Products Allergy Rash/Hives, Verified 04/21/23 22:22 [Fish] tongue swells fosphenytoin sodium Allergy TONGUE Verified 04/21/23 22:22 [From Cerebyx] SWELLING hydrocodone bitartrate Allergy Rash/Hives Verified 04/21/23 22:22 [From Lortab] hydromorphone HCl Allergy Rash/Hives Verified 04/21/23 22:22 [From Dilaudid] lamotrigine [From Lamictal] Allergy Rash/Hives Verified 04/21/23 22:22 levetiracetam [From Keppra] Allergy Rash/Hives Verified 04/21/23 22:22 lithium Allergy LOST VISION Verified 04/21/23 22:22 milk Allergy TONGUE Verified 04/21/23 22:22 TINGLES morphine Allergy Anaphylaxis Verified 04/21/23 22:22 peanut Allergy TONGUE Verified 04/21/23 22:22 TINGLES sulfamethoxazole Allergy Rash/Hives Verified 04/21/23 22:22 [From Bactrim] trimethobenzamide HCl Allergy Rash/Hives Verified 04/21/23 22:22 [From Tigan] trimethoprim [From Bactrim] Allergy Rash/Hives Verified 04/21/23 22:22 venom-honey bee Allergy Anaphylaxis Verified 04/21/23 22:22 [bee venom (honey bee)] Review of Systems ROS Statement: Those systems with pertinent positive or pertinent negative responses have been documented in the HPI. ROS Other: All systems not noted in ROS Statement are negative. Constitutional: Denies: fever, chills, weakness Respiratory: Denies: cough, dyspnea Cardiovascular: Reports: chest pain, palpitations. Denies: orthopnea, edema, syncope Gastrointestinal: Denies: abdominal pain, nausea, vomiting Genitourinary: Denies: dysuria, hematuria Musculoskeletal: Denies: back pain Skin: Denies: rash Neurological: Denies: headache, weakness, numbness EKG Findings - EKG Results: EKG: interpreted by ERMD, sinus rhythm, normal axis, normal QRS, normal ST/T EKG shows: tachycardia (Rate 104 bpm) Past Medical History Past Medical History: CVA/TIA, Fibromyalgia, GERD/Reflux, Hearing Disorder / Deafness, Hyperlipidemia, Myocardial Infarction ([place]), Osteoarthritis (OA), Seizure Disorder Additional Past Medical History / Comment(s): HX SEIZURES, last one in 2017. Vertigo; MIGRAINES; Peripheral Neuropathy. TACHYCARDIA; TIA X2; MINOR [place] X4. Bipolar, personality disorder, abd. pain Last Myocardial Infarction Date:: 2011 History of Any Multi-Drug Resistant Organisms: None Reported Past Surgical History: Cardiac Ablation, Cholecystectomy, Hysterectomy, Tubal Ligation, Uterine Ablation Additional Past Surgical History / Comment(s): EGD, COLONOSCOPY 12/24/14. LAPROSCOPIC REMOVAL OF RIGHT OVARY AND ADHESIONS AT [facility] 12/26/16 Past Anesthesia/Blood Transfusion Reactions: Previous Problems w/ Anesthesia, Family History of Problems w/ Anesthesia Additional Past Anesthesia/Blood Transfusion Reaction / Comment(s): Woke Up Duri ng ORAL Surgery in 2000; FATHER AND SIBLINGS ALSO WOKE DURING SURG. Past Psychological History: Bipolar, Depression, Panic Disorder, PTSD Smoking Status: Former smoker Past Alcohol Use History: None Reported Past Drug Use History: None Reported - Past Family History Sister(s) Family Medical History: Cancer Mother Family Medical History: Cancer Mother Sister(s) Family Medical History: Cancer General Exam General appearance: alert, in no apparent distress Head exam: Present: atraumatic, normocephalic Eye exam: Present: normal appearance. Absent: scleral icterus, conjunctival injection Neck exam: Present: normal inspection, full ROM Respiratory exam: Present: normal lung sounds bilaterally. Absent: respiratory distress, wheezes, rales, rhonchi, stridor, accessory muscle use Cardiovascular Exam: Present: regular rate, normal rhythm, normal heart sounds. Absent: systolic murmur, diastolic murmur, rubs, gallop GI/Abdominal exam: Present: soft. Absent: distended, tenderness, guarding, rebound, rigid, mass Extremities exam: Present: normal inspection, normal capillary refill. Absent: pedal edema, calf tenderness Back exam: Present: normal inspection. Absent: CVA tenderness (R), CVA tenderness (L) Neurological exam: Present: alert Skin exam: Present: warm, dry, intact, normal color. Absent: rash Course Vital Signs 04/21/23 04/21/23 04/21/23 21:07 22:44 22:50 Temperature 98.3 F 98.1 F Pulse Rate 113 H 96 94 Respiratory 20 20 18 Rate Blood Pressure 105/74 101/71 126/84 O2 Sat by Pulse 97 98 100 Oximetry Chest Pain MDM - MDM Patient had chest x-ray which I interpreted as negative for acute infiltrate, pneumothorax, congestive heart failure Was pt. sent in by a medical professional or institution (, PA, FIELD PARTY MANAGER, urgent care, hospital, or skilled nursing...) When possible be specific @ -[No] Did you speak to anyone other than the patient for history (EMS, parent, family, police, friend...)? What history was obtained from this source @ -[No] Did you review nursing and triage notes (agree or disagree)? Why? @ -[I reviewed and agree with nursing and triage notes] Were old charts reviewed (outside hosp., previous admission, EMS record, old EKG, old radiological studies, urgent care reports/EKG's, skilled nursing records)? Report findings @ -[No old charts were reviewed] Differential Diagnosis (chest pain, altered mental status, abdominal pain women, abdominal pain men, vaginal bleeding, weakness, fever, dyspnea, syncope, headache, dizziness, GI bleed, back pain, seizure, CVA, palpatations, mental health, musculoskeletal)? @ -[Differential Palpitations Ventricular arrhythmias, atrial arrhythmias, myocardial infarction, anemia, thyrotoxicosis, electrolyte imbalance, hypokalemia, pulmonary embolism, pulmonary disease, drugs, alcohol, anxiety, stress.... This is not meant to be an all-inclusive list. EKG interpreted by me (3pts min.). @ -[As above] X-rays interpreted by me (1pt min.). @ -I interpreted as above CT interpreted by me (1pt min.). @ -[None done] U/S interpreted by me (1pt. min.). @ -[None done] What testing was considered but not performed or refused? (CT, X-rays, U/S, labs)? Why? @ -[None] What meds were considered but not given or refused? Why? @ -[None] Did you discuss the management of the patient with other professionals (professionals i.e. , PA, FIELD PARTY MANAGER, lab, RT, psych nurse, social services assistant, territory sales consultant, teacher, chief digital media officer, catalytic case operator)? Give summary @ -[No] Was smoking cessation discussed for >3mins.? @ -[No] Was critical care preformed (if so, how long)? @ -[No] Were there social determinants of health that impacted care today? How? (Homelessness, low income, unemployed, alcoholism, drug addiction, transportation, low edu. Level, literacy, decrease access to med. care, retirement, rehab)? @ -[No] Was there de-escalation of care discussed even if they declined (Discuss DNR or withdrawal of care, Hospice)? DNR status @ -[No] What co-morbidities impacted this encounter? (DM, HTN, Smoking, COPD, CAD, Cancer, CVA, ARF, Chemo, Hep., AIDS, mental health diagnosis, sleep apnea, morbid obesity)? @ -[None] Was patient admitted / discharged? Hospital course, mention meds given and route, prescriptions, significant lab abnormalities, going to OR and other pertinent info. @ -[Patient is 42-year-old woman poorly history of SVT. The patient had symptoms consistent with recurrence, but they have resolved. At this point stable for discharge without patient follow-up when necessary. Undiagnosed new problem with uncertain prognosis? @ -[No] Drug Therapy requiring intensive monitoring for toxicity (Heparin, Nitro, Insulin, Cardizem)? @ -[No] Were any procedures done? @ -[No] Diagnosis/symptom? @ -[Acute palpitations Acute, or Chronic, or Acute on Chronic? @ -Acute Uncomplicated (without systemic symptoms) or Complicated (systemic symptoms)? @ -[Uncomplicated Side effects of treatment? @ -[No] Exacerbation, Progression, or Severe Exacerbation? @ -[No] Poses a threat to life or bodily function? How? (Chest pain, [place], [place], pneumonia, PE, COPD, DKA, ARF, appy, cholecystitis, CVA, Diverticulitis, Homicidal, Suicidal, threat to staff... and all critical care pts) @ -[No] Disposition Clinical Impression: Chest pain, Palpitations Disposition: HOME SELF-CARE Condition: Good Instructions (If sedation given, give patient instructions): Chest Pain (ED), Heart Palpitations (DC) Is patient prescribed a controlled substance at d/c from ED?: No Referrals: Sayda Prince MD [Primary Care Provider] - 1-2 days
[2023-04-21 21:53] LABS: Basophils # (A) 0.1 k/uL (0-0.2); Basophils % (A) 1 %; Eosinophils # (A) 0.2 k/uL (0-0.7); Eosinophils % (A) 2 %; HCT 43.7 % (34.0-46.0); HGB 14.3 gm/dL (11.4-16.0); Lymphocytes % (A) 31 %; MCH 28.6 pg (25.0-35.0); MCHC 32.7 g/dL (31.0-37.0); MCV 87.4 fL (80.0-100.0); Monocytes # (A) 0.3 k/uL (0-1.0); Monocytes % (A) 3 %; Neutrophils # (A) 5.9 k/uL (1.3-7.7); Neutrophils % (A) 61 %; Platelet Count 198 k/uL (150-450); RDW 13.2 % (11.5-15.5); WBC 9.7 k/uL (3.8-10.6)
--- NOTE | 2023-04-21 22:02 | XR ---
EXAMINATION TYPE: XR chest 2V DATE OF EXAM: 04/21/2023 9:34 PM CLINICAL INDICATION:Female, 42 years old with history of Chest Pain; [facility] COMPARISON: 2V chest 07/03/2019 TECHNIQUE: XR chest 2V. Frontal PA and lateral views of the chest. FINDINGS: Lines/Tubes: EKG leads overlie the chest. No indwelling lines are seen. Heart/mediastinum: Cardiomediastinal silhouette is well defined. Heart size is normal. Mediastinum appears normal. Pulmonary vascularity: Not increased, Lungs/Pleura: There is no evidence of pleural effusion, focal consolidation, or pneumothorax. Musculoskeletal: No acute osseous abnormality demonstrated in the limits of the exam. Other findings: None. IMPRESSION: Overall stable exam. No acute cardiopulmonary abnormality.
[2023-04-21 22:08] LABS: ALT 18 U/L (4-34); AST 20 U/L (14-36); African American GFR (CKD) >90 (>60 ml/min/1.73 sqM); Albumin 4.3 g/dL (3.5-5.0); Alkaline Phosphatase 73 U/L (38-126); Anion Gap 12 mmol/L; Blood Urea Nitrogen 10 mg/dL (7-17); Calcium 9.2 mg/dL (8.4-10.2); Carbon Dioxide 19 mmol/L (22-30); Chloride 108 mmol/L (98-107); Glucose 98 mg/dL (74-99); Magnesium 1.9 mg/dL (1.6-2.3); Non-African American GFR(CKD) >90 (>60 ml/min/1.73 sqM); Potassium 3.5 mmol/L (3.5-5.1); Sodium 139 mmol/L (137-145); Total Bilirubin 0.4 mg/dL (0.2-1.3); Total Protein 7.4 g/dL (6.3-8.2)
[2023-04-21 22:14] LABS: INR 0.9 (<1.2); Prothrombin Time 10.1 sec (10.0-12.5)
[2023-04-21 22:33] LABS: Partial Thromboplastin Time 18.8 sec (22.0-30.0)
[2023-04-21 23:14] VITALS: BP 126/84; PULSE 94; RESP 18; TEMP 98.1
== END 2023-04-21 23:34 | disposition home or self-care (01) ==
LOC: EC 20:52
DX: R00.2 Palpitations (principal); R07.9 Chest pain, unspecified; E78.5 Hyperlipidemia, unspecified; I25.2 Old myocardial infarction; M19.90 Unspecified osteoarthritis, unspecified site; Z79.899 Other long term (current) drug therapy; Z87.891 Personal history of nicotine dependence; Z86.59 Personal history of other mental and behavioral disorders; Z88.1 Allergy status to other antibiotic agents; Z88.2 Allergy status to sulfonamides; Z88.5 Allergy status to narcotic agent; Z88.8 Allergy status to other drugs, medicaments and biological substances; Z91.030 Bee allergy status; Z91.013 Allergy to seafood; Z91.011 Allergy to milk products; Z91.012 Allergy to eggs; Z91.018 Allergy to other foods; Z90.49 Acquired absence of other specified parts of digestive tract
CPT/HCPCS: 36415; 71046; 80053; 83735; 84484; 85025; 85379; 85610; 85730; 93005; 99285

== ENCOUNTER → 2024-04-24 | Outpatient (CLI) | payer OTHER ==
--- NOTE | 2024-04-28 02:41 | MM ---
Reason for Exam: Screening (asymptomatic). Last mammogram was performed 1 year(s) and 3 month(s) ago. Patient History: Menarche at age 14. First Full-Term at age 27. Right ovary removed at age 36. Hysterectomy at age 32. Postmenopausal. Patient has history of breast feeding. Hormonal Contraceptives, from age 18 until age 30. Maternal cousin had breast cancer, age 30. Maternal aunt had breast cancer, age 40. Maternal aunt had breast cancer, age 50. Maternal aunt had breast cancer at or over age 50. Maternal aunt had breast cancer at or over age 50. Maternal aunt had breast cancer at or over age 50. Maternal aunt had breast cancer at or over age 50. Maternal aunt had breast cancer at or over age 50. Maternal aunt had ovarian cancer at or over age 50. Maternal cousin had breast cancer under age 50. Maternal cousin had breast cancer under age 50. Risk Values: Luann 5 year model risk: 0.7%. NCI Lifetime model risk: 11.0%. Prior Study Comparison: 01/10/2018 Bilateral Diagnostic Mammogram, [facility]. 02/02/2023 Bilateral MG 3D diag mammo w/cad TERRY, [facility]. Tissue Density: There are scattered areas of fibroglandular density. Findings: Analyzed By CAD. The pattern is symmetrical. No significant interval change. No suspicious groups of microcalcifications, spiculated or lobular masses, architectural distortion or other secondary signs of malignancy are mammographically apparent. Overall Assessment: Benign, BI-RAD 2 Management: Screening Mammogram of both breasts in 1 year. A negative mammogram report should not preclude additional follow up of suspicious palpable abnormalities. Patient should continue monthly self breast exam. A clinical breast exam by your physician is recommended on an annual basis and results should be correlated with mammographic findings. Note on Luann scores and lifetime risk: 1. A Luann score greater than 3% is considered moderate risk. If this is the case, consider specialist referral to assess eligibility for a risk reducing agent. 2. If overall lifetime risk for the development of breast cancer is 20% or higher, the patient may qualify for future screening with alternating mammogram and breast MRI. [facility], , 04/28/2024 2:38 AM. Electronically signed and approved by: Bakari Wiseman D.O. Radiologis
== END | disposition home or self-care (01) ==
LOC: RADMAMWWP 12:35
PROVIDERS: ATTEND Family Medicine
DX: Z12.31 Encounter for screening mammogram for malignant neoplasm of breast (principal); R92.323 Mammographic fibroglandular density, bilateral breasts; Z78.0 Asymptomatic menopausal state; Z80.3 Family history of malignant neoplasm of breast; Z80.41 Family history of malignant neoplasm of ovary; Z90.722 Acquired absence of ovaries, bilateral
CPT/HCPCS: 77063; 77067

== ENCOUNTER → 2024-11-21 | Outpatient (CLI) | payer OTHER ==
--- NOTE | 2024-11-21 15:36 | US ---
EXAMINATION TYPE: US venous doppler duplex LE LT DATE OF EXAM: 11/21/2024 3:15 PM COMPARISON: NONE CLINICAL INDICATION: Female, 44 years old with history of M79.652 PAIN IN LEFT THIGH; Left thigh pain and swelling. History of DVT in right leg., Pain TECHNIQUE: The lower extremity deep venous system is examined utilizing real time linear array sonog jamshid with graded compression, color doppler sonography, and spectral doppler. SIDE PERFORMED: Left FINDINGS: VESSELS IMAGED: Common Femoral Vein Deep Femoral Vein Greater Saphenous Vein * Femoral Vein Popliteal Vein Small Saphenous Vein * Proximal Calf Veins (* superficial vessels) Left Leg: Negative for DVT, Color Doppler imaging shows patency of the vessels. Spectral waveforms a re within normal limits. IMPRESSION: No ultrasound evidence for deep venous thrombosis. [facility], , 11/21/2024 3:34 PM
== END | disposition home or self-care (01) ==
LOC: RADUSWWP 14:40
PROVIDERS: ATTEND Family Medicine
DX: M79.652 Pain in left thigh (principal)

== ENCOUNTER 2024-11-28 18:52 | Emergency (ER) | payer OTHER ==
--- NOTE | 2024-11-28 19:19 | ED ---
General Adult HPI - General Chief complaint: Allergic Reaction Stated complaint: Allergic Reaction Time Seen by Provider: 11/28/24 19:00 Source: patient, EMS, RN notes reviewed, old records reviewed Mode of arrival: EMS Limitations: no limitations - History of Present Illness Initial comments: This is a 44-year-old female who presents to the emergency department after having been at a restaurant and noticed a rash developing on her arms she does have a history of allergic reaction to shellfish. Patient states she did not have any shellfish tonight. Patient states the rash started going up her arm so she went to an urgent care at the urgent care she felt like her throat was getting a little scratchy and swollen so the urgent care gave her Solu-Medrol Benadryl Pepcid and epinephrine. Patient only complains of a slight cough no no sputum production. Patient is not short of breath currently. Patient's rash is going away. Patient has no other symptoms at this time. Patient states she had her EpiPen with her but did not use it. - Related Data Home Medications Medication Instructions Recorded Confirmed EPINEPHrine [Epipen 2-Varun] 0.3 mg IM ONCE PRN 07/18/17 04/21/23 Atorvastatin [Lipitor] 80 mg PO DAILY 04/21/23 04/21/23 Previous Rx's Medication Instructions Recorded predniSONE [Deltasone] 40 mg PO DAILY #8 tab 11/28/24 Allergies Allergy/AdvReac Type Severity Reaction Status Date / Time shellfish derived Allergy Severe tongue Verified 04/21/23 22:22 swells and hives asenapine [From Saphris] Allergy Unknown Verified 04/21/23 22:22 azithromycin [From Zithromax] Allergy Rash/Hives Verified 04/21/23 22:22 ceftriaxone sodium Allergy Rash/Hives Verified 04/21/23 22:22 [From Rocephin] chlordiazepoxide Allergy Unknown Verified 04/21/23 22:22 [From Librium] ciprofloxacin [From Cipro] Allergy Rash/Hives Verified 04/21/23 22:22 ciprofloxacin HCl Allergy Rash/Hives Verified 04/21/23 22:22 [From Cipro] citalopram hydrobromide Allergy Rash/Hives Verified 04/21/23 22:22 [From Celexa] egg Allergy TONGUE Verified 04/21/23 22:22 TINGLES escitalopram oxalate Allergy Rash/Hives Verified 04/21/23 22:22 [From Lexapro] Fish Containing Products Allergy Rash/Hives, Verified 04/21/23 22:22 [Fish] tongue swells fosphenytoin sodium Allergy TONGUE Verified 04/21/23 22:22 [From Cerebyx] SWELLING hydrocodone bitartrate Allergy Rash/Hives Verified 04/21/23 22:22 [From Lortab] hydromorphone HCl Allergy Rash/Hives Verified 04/21/23 22:22 [From Dilaudid] lamotrigine [From Lamictal] Allergy Rash/Hives Verified 04/21/23 22:22 levetiracetam [From Keppra] Allergy Rash/Hives Verified 04/21/23 22:22 lithium Allergy LOST VISION Verified 04/21/23 22:22 milk Allergy TONGUE Verified 04/21/23 22:22 TINGLES morphine Allergy Anaphylaxis Verified 04/21/23 22:22 peanut Allergy TONGUE Verified 04/21/23 22:22 TINGLES sulfamethoxazole Allergy Rash/Hives Verified 04/21/23 22:22 [From Bactrim] trimethobenzamide HCl Allergy Rash/Hives Verified 04/21/23 22:22 [From Tigan] trimethoprim [From Bactrim] Allergy Rash/Hives Verified 04/21/23 22:22 venom-honey bee Allergy Anaphylaxis Verified 04/21/23 22:22 [bee venom (honey bee)] Review of Systems ROS Statement: Those systems with pertinent positive or pertinent negative responses have been documented in the HPI. ROS Other: All systems not noted in ROS Statement are negative. Past Medical History Past Medical History: CVA/TIA, Fibromyalgia, GERD/Reflux, Hearing Disorder / Deafness, Hyperlipidemia, Myocardial Infarction (SD), Osteoarthritis (OA), Seizure Disorder Additional Past Medical History / Comment(s): HX SEIZURES, last one in 2017. Vertigo; MIGRAINES; Peripheral Neuropathy. TACHYCARDIA; TIA X2; MINOR SD X4. Bipolar, personality disorder, abd. pain Last Myocardial Infarction Date:: 2011 History of Any Multi-Drug Resistant Organisms: None Reported Past Surgical History: Cardiac Ablation, Cholecystectomy, Hysterectomy, Tubal Ligation, Uterine Ablation Additional Past Surgical History / Comment(s): EGD, COLONOSCOPY 12/24/14. LAPROSCOPIC REMOVAL OF RIGHT OVARY AND ADHESIONS AT [facility] 12/26/16 Past Anesthesia/Blood Transfusion Reactions: Previous Problems w/ Anesthesia, Family History of Problems w/ Anesthesia Additional Past Anesthesia/Blood Transfusion Reaction / Comment(s): Woke Up During ORAL Surgery in 2000; FATHER AND SIBLINGS ALSO WOKE DURING SURG. Past Psychological History: Bipolar, Depression, Panic Disorder, PTSD Smoking Status: Former smoker Past Alcohol Use History: None Reported Past Drug Use History: None Reported - Past Family History Sister(s) Family Medical History: Cancer Mother Family Medical History: Cancer Mother Sister(s) Family Medical History: Cancer General Exam - General Exam Comments Initial Comments: GENERAL: Patient is well-developed and well-nourished. Patient is nontoxic and well- hydrated and is in no acute distress. ENT: Neck is soft and supple. No significant lymphadenopathy is noted. Oropharynx is clear. Moist mucous membranes. Neck has full range of motion without eliciting any pain. EYES: The sclera were anicteric and conjunctiva were pink and moist. Extraocular movements were intact and pupils were equal round and reactive to light. Eyelids were unremarkable. PULMONARY: Unlabored respirations. Good breath sounds bilaterally. No audible rales rhonchi or wheezing was noted. CARDIOVASCULAR: There is a regular rate and rhythm without any murmurs gallops or rubs. ABDOMEN: Soft and nontender with normal bowel sounds. SKIN: Skin is clear with no lesions or rashes and otherwise unremarkable. NEUROLOGIC: Patient is alert and oriented x3. Cranial nerves II through XII are grossly intact. Motor and sensory are also intact. Normal speech, volume and content. Symmetrical smile. MUSCULOSKELETAL: Normal extremities with adequate strength and full range of motion. LYMPHATICS: No significant lymphadenopathy is noted PSYCHIATRIC: Normal psychiatric evaluation. Limitations: no limitations Course Vital Signs 11/28/24 11/28/24 18:59 19:53 Temperature 98.2 F Pulse Rate 103 H 102 H Respiratory 20 18 Rate Blood Pressure 136/90 116/71 O2 Sat by Pulse 96 95 Oximetry Medical Decision Making - Medical Decision Making Was pt. sent in by a medical professional or institution (, PA, [employer], urgent care, hospital, or [facility]...) When possible be specific @ -No Did you speak to anyone other than the patient for history (EMS, parent, family, police, friend...)? What history was obtained from this source @ -No Did you review nursing and triage notes (agree or disagree)? Why? @ -I reviewed and agree with nursing and triage notes Were old charts reviewed (outside hosp., previous admission, EMS record, old EKG, old radiological studies, urgent care reports/EKG's, [facility] records)? Report findings @ -No old charts were reviewed Differential Diagnosis? @ -Differential Dyspnea: Coronary syndrome, arrhythmia, tamponade, asthma, COPD, pulmonary embolism, pneumonia, pneumothorax, pulmonary effusion, anaphylaxis, diabetic ketoacidosis, flailed chest, pulmonary contusion, diaphragmatic rupture, anemia, neuromuscular, this is not meant to be an all-inclusive list. EKG interpreted by me (3pts min.). @ -As above X-rays interpreted by me (1pt min.). @ -None done CT interpreted by me (1pt min.). @ -None done U/S interpreted by me (1pt. min.). @ -None done What testing was considered but not performed or refused? (CT, X-rays, U/S, labs)? Why? @ -None What meds were considered but not given or refused? Why? @ -None Did you discuss the management of the patient with other professionals (professionals i.e. , PA, [employer], lab, RT, psych nurse, social director, body and fender mechanic apprentice, teacher, combat systems officer, case mgr)? Give summary @ -No Was smoking cessation discussed for >3mins.? @ -No Was critical care preformed (if so, how long)? @ -No Were there social determinants of health that impacted care today? How? (Homelessness, low income, unemployed, alcoholism, drug addiction, transporta tion, low edu. Level, literacy, decrease access to med. care, long-term, rehab)? @ -No Was there de-escalation of care discussed even if they declined (Discuss DNR or withdrawal of care, Hospice)? DNR status @ -No What co-morbidities impacted this encounter? (DM, HTN, Smoking, COPD, CAD, Cancer, CVA, ARF, Chemo, Hep., AIDS, mental health diagnosis, sleep apnea, morbid obesity)? @ -None Was patient admitted / discharged? Hospital course, mention meds given and route, prescriptions, significant lab abnormalities, going to OR and other pertinent info. @ -Patient had received Benadryl Solu-Medrol Pepcid and epi before arrival. Patient was asymptomatic throughout her stay. Patient was little anxious so she did give 0.5 of Ativan. Patient had no further rash. Patient had no difficulty breathing. Patient was oxygenating at 98 and 9% on room air Undiagnosed new problem with uncertain prognosis? @ -No Drug Therapy requiring intensive monitoring for toxicity (Heparin, Nitro, Insulin, Cardizem)? @ -No Were any procedures done? @ -No Diagnosis/symptom? @ -Default Acute, or Chronic, or Acute on Chronic? @ -Allergic reaction Uncomplicated (without systemic symptoms) or Complicated (systemic symptoms)? @ -Complicated Side effects of treatment? @ -No Exacerbation, Progression, or Severe Exacerbation? @ -No Poses a threat to life or bodily function? How? (Chest pain, USA, SD, pneumonia, PE, COPD, DKA, ARF, appy, cholecystitis, CVA, Diverticulitis, Homicidal, Suicidal, threat to staff... and all critical care pts) @ -No Disposition Clinical Impression: Allergic reaction Disposition: HOME SELF-CARE Condition: Good Instructions (If sedation given, give patient instructions): Anaphylaxis (ED), General Allergic Reaction (ED) Additional Instructions: Patient should take Benadryl 25 to 50 mg as needed for rash. Patient should use her EpiPen if there is any difficulty breathing or throat closing off. If she uses her bed she needs to come to the emergency department immediately Prescriptions: predniSONE [Deltasone] 40 mg PO DAILY #8 tab Is patient prescribed a controlled substance at d/c from ED?: No Referrals: Sayda Prince MD [Primary Care Provider] - 1-2 days Time of Disposition: 20:29
[2024-11-28 19:53] VITALS: RESP 18
[2024-11-28] MEDS: LORazepam 1 MG/0.5 ML VIAL IV STA (20:13)
[2024-11-28 21:01] VITALS: BP 114/77; PULSE 116; TEMP 98.7
== END 2024-11-28 21:00 | disposition home or self-care (01) ==
LOC: EC 18:52
DX: T78.40XA Allergy, unspecified, initial encounter (principal); Z87.891 Personal history of nicotine dependence; Z88.1 Allergy status to other antibiotic agents; Z88.2 Allergy status to sulfonamides; Z88.5 Allergy status to narcotic agent; Z91.010 Allergy to peanuts; Z91.011 Allergy to milk products; Z91.012 Allergy to eggs; Z91.013 Allergy to seafood; Z91.030 Bee allergy status; Z88.8 Allergy status to other drugs, medicaments and biological substances
CPT/HCPCS: 99284; 96374; J2060